=== PATIENT | female | born 1935 ===

== ENCOUNTER 2020-04-26 12:30 | Inpatient (IN) | payer MEDICARE, SELFPAY ==
[2020-04-26] VITALS (17 sets, daily range): BP systolic 101–144; BP diastolic 61–105; PULSE 91–156; RESP 18–25; TEMP 36–36.6; O2SAT 93–98; BMI 27.1
--- NOTE | ~2020-04-26 | XR_ITS ---
EXAMINATION: XR chest 1V portable INDICATION: Shortness of breath TECHNIQUE: Portable AP chest at 1342 hours COMPARISON: 11/02/2018 FINDINGS: There are airspace opacities of the lower lung zones. A small left pleural effusion is pres ent. There is no pneumothorax. The heart size is normal. Calcified atherosclerosis is noted. IMPRESSION: 1. Bibasilar airspace opacity, consistent with atelectasis versus pneumonia. 2. Small left pleural effusion. Reviewed, dictated and finalized at location A.
--- NOTE | 2020-04-26 12:41 | ECG_ITS ---
Measurements Intervals [place] Rate: 160 P: [place]: 0 QRS: 23 QRSD: 78 T: 87 QT: 285 QTc: 465 Interpretive Statements ATRIAL FIBRILLATION WITH RAPID VENTRICULAR RESPONSE VENTRICULAR COUPLET LOW QRS VOLTAGE IN LIMB LEADS CANNOT RULE OUT SEPTAL INFARCT, AGE INDETERMINATE BORDERLINE ST-T WAVE ABNORMALITY- INF/LAT LEADS BASELINE ARTIFACT- I, II, AVR, AVL, AVF ABNORMAL ECG Electronically Signed On 04-26-2020 13:33:52 CDT by Slick Romero D.O.
--- NOTE | 2020-04-26 12:42 | ED.GENADULT ---
HPI - General Adult General Chief complaint: Shortness of Breath/Dyspnea Stated complaint: a fib Time Seen by Provider: 04/26/20 12:33 Source: RN notes reviewed History of Present Illness HPI narrative: Patient presents emergency department from PCPs office for rapid heart rate. Patient states she has been feeling short of breath with mild midsternal chest pain for the past 2 days. States she had gone to her PCPs office found to be in A. fib and sent to the ER for further evaluation. Patient denies any history of atrial fibrillation. States he does have COPD and normally only wears 2 L at night but is been wearing it during the day for the past 2 days. She denies any fevers or chills abdominal pain nausea vomiting or any other symptoms Related Data Home Medications Medication Instructions Recorded Confirmed fluticasone propionate 50 1 spray NASAL DAILY 12/05/19 mcg/actuation nasal spray,suspension hydrochlorothiazide 12.5 mg tablet 12.5 mg PO DAILY 12/05/19 albuterol sulfate [ProAir HFA] 1 inh INHALATION QID 04/26/20 prednisone 04/26/20 Allergies Allergy/AdvReac Type Severity Reaction Status Date / Time duloxetine Allergy Unknown Nausea Verified 04/26/20 12:55 nitrofurantoin Allergy Unknown Nausea Verified 04/26/20 12:55 Review of Systems Review of Systems: Narrative: Gen.: Denies fevers or chills ENT: Denies congestion Respiratory: See HPI CV: See HPI GI: Denies abdominal pain nausea, emesis or diarrhea denies burning, urgency, frequency or hematuria Musculoskeletal: Denies back pain or muscle pain Neuro: Denies numbness, tingling, weakness or focal weakness Skin: Denies rash Except as documented, all other systems reviewed and negative PMF Past Medical History Medical History (Updated 04/26/20 @ 14:46 by Lalit Arnold DO) Chronic obstructive pulmonary disease, unspecified Surgical History Surgical History H/O cataract extraction H/O hemorrhoidectomy H/O tubal ligation Hx of removal of ovary Social History Social History Smoking status: Current every day smoker Alcohol intake: current Gender identity (if verbalized by the patient): Female Exam Narrative: Exam Narrative: APPEARANCE: No acute distress, nontoxic, resting in bed EYES: EOMI HEENT: Normocephalic, atraumatic, OMM RESPIRATORY: No respiratory distress Clear to auscultation bilaterally with no rhonchi wheezing or rales. CARDIOVASCULAR: Tachycardic and regular without murmurs rubs or gallops. ABDOMINAL: Soft, nontender, nondistended, no rebound or guarding MUSCULOSKELETAl: Moves all extremities. No clubbing, cyanosis 2+ edema the bilateral lower extremities. NEURO: Awake and alert. Following commands, speech normal, no focal deficits SKIN:: Warm, dry. No rashes lesions or abrasions PSYCHIATRIC: Normal affect/mood, Course Course Emergency Course: Discussed with ABBY Morgan for Dr. Gomez presentation work-up. Agrees to consult this time. Discussed current heart rate agrees with continued Cardizem and they will evaluate the patient on the floor. Recommends patient receive Lovenox x1 at this time Discussed Dr. Goldstein presentation work-up. Agrees with admission at this time. Request patient started on.9NS at 100 mL an hour Discussed with patient and family results of workup and diagnosis. Discussed need for admission. Patient and family understand and agree to current treatment plan Vital Signs Vital signs: Vital Signs Temperature 97.8 F 04/26/20 12:37 Pulse Rate 153 H 04/26/20 12:37 Respiratory Rate 25 H 04/26/20 12:37 Blood Pressure 144/105 H 04/26/20 12:37 Pulse Oximetry 97 04/26/20 12:37 Temperature 97.8 F 04/26/20 12:37 Pulse Rate 140 H 04/26/20 14:38 Respiratory Rate 18 04/26/20 14:38 Blood Pressure 133/94 H 04/26/20 14:38 Pulse Oximetry 97 04/26/20 14:38
[2020-04-26 12:56] LABS: Basophils Percent Auto 0.1 % (0.2-1.2); Hematocrit 35.2 % (37.0-47.0); Hemoglobin 12.3 g/dL (12.0-15.0); Immature Granulocyte Absolute 0.04 K/mm3 (0.00-0.031); Immature Granulocyte Percent A 0.5 % (0-0.5); Lymphocytes Absolute Auto 0.65 K/mm3 (0.9-3.2); Lymphocytes Percent Auto 8.1 % (18.3-44.2); Mean Corpuscular HGB Conc 34.9 g/dl (32-36); Mean Corpuscular Hemoglobin 34.7 pg (26-34); Mean Corpuscular Volume 99.4 fl (80-100); Mean Platelet Volume 8.7 fl (7.4-10.4); Monocytes Absolute Auto 0.3 K/mm3 (0.1-0.6); Monocytes Percent Auto 3.5 % (2.6-8.5); Neutrophils Absolute Auto 7.1 K/mm3 (1.3-6.7); Neutrophils Percent Auto 87.8 % (45.5-73.1); Platelet Count Result 277 k/mm3 (150-375); Red Blood Count 3.54 M/mm3 (4.2-5.4); Red Cell Distribution Width 12.5 % (11.5-14.5); White Blood Count 8.1 K/mm3 (4.5-10.0)
[2020-04-26 13:07] LABS: Blood Urea Nitrogen 22 mg/dL (7-17); Carbon Dioxide 28 mmol/L (22-30); Chloride 84 mmol/L (98-107); Estimated CRCL calculation 59 ml/min; Estimated Glomerular Filt Rate > 60; Glucose 148 mg/dL (65-105); Potassium 3.8 mmol/L (3.4-5.0); Prothrombin Time 13.3 Seconds (11.1-14.7); Sodium 123 mmol/L (137-145)
[2020-04-26 13:08] LABS: Partial Thromboplastin Time 25.8 SECONDS (22.3-36.8)
[2020-04-26 13:20] LABS: NT Pro B Type Natriuretic Pept 5540 PG/ML (5-100)
[2020-04-26] MEDS: ENOXAPARIN 80 MG/0.8 ML SYRINGE 73 MG SUB-Q (14:13)
--- NOTE | 2020-04-26 15:25 | ADMGEN ---
This patient, Wendy Castañeda, was admitted to IMU Room 205-01. Patient/family oriented to hospital policies and general routines including ID bracelet, bed and alarms, visiting hours, pain management, procedures, bathroom and other care routines, personal items, smoking policy, room service/diet, and visiting hours. Valuables list has been completed. Information on how to activate the Rapid Response Team has been discussed. Patient/Family are encouraged to report perceived risks to care and to ask questions if they do not understand what they are told or what they should do.
--- NOTE | 2020-04-26 15:55 | PM.CNCAR ---
Assessment and Plan Assessment and plan (1) Atrial fibrillation with rapid ventricular response: Code(s): I48.91 - Unspecified atrial fibrillation Status: Acute Assessment and Plan: -New diagnosis atrial fibrillation with rapid ventricular response. Onset likely 5-7 days ago given symptom complex. Continue enoxaparin 1 milligram/kilogram subcutaneous q.12 hours initiated in the emergency department for systemic anticoagulation and embolic stroke risk reduction. Patient is not in clinical decompensated heart failure, elevated BNP secondary to age and atrial fibrillation with RVR. -Continue diltiazem infusion 10 milligrams/hour. -Add Metoprolol tartrate 25 mg p.o. q.6 hours as heart rate and BP tolerate. Will attempt to wean diltiazem infusion based upon heart rate control. Heart rate control strategy will be focus at this time. We discussed at length the pathophysiology of atrial fibrillation as well as management options including medications, electrical cardioversion to restore SR particularly if HR refractory and/or she tolerates medications poorly. If cardioversion is pursued, transesophageal echocardiographic guidance would be required given duration of sxs consistent with atrial fibrillation with RVR. -CHADS2-Vasc score 4 (HTN, age, including female sex (3 otherwise)): As pt does not have clear contraindications to anticoagulation her embolic stroke risk appears to outweigh bleeding risk. -Troponins are being trended. Initial troponin negative. No evidence to support ACS. -2D echocardiogram to assess LV size /function, chamber size, valve pathology, and pulmonary pressures. Will be reviewed when available. -Check TSH and Mg level. Monitor and replete electrolytes as warranted to keep potassium and magnesium around 4 and 2, respectively. Further recommendations to follow based on patient's clinical response to therapy. Patient verbalized understanding of the above recommendations and agreed to comply with the plan of care. All questions answered to her satisfaction. (2) Panlobular emphysema: Code(s): J43.1 - Panlobular emphysema Status: Acute Assessment and Plan: Per primary service. Continue oxygen supplementation, bronchodilator therapy as appropriate. (3) Essential (primary) hypertension: Code(s): I10 - Essential (primary) hypertension Status: Acute Assessment and Plan: BP fair at this time. Continue to monitor closely with above medication adjustment. (4) Mixed hyperlipidemia: Code(s): E78.2 - Mixed hyperlipidemia Status: Acute Assessment and Plan: May continue home Simvastatin. (5) Acute hyponatremia: Code(s): E87.1 - Hypo-osmolality and hyponatremia Status: Acute Assessment and Plan: Workup per primary service. Possibly secondary to hydrochlorothiazide. History of Present Illness History of Present Illness Consult date/time: Date of service: 04/26/20 15:55 This is a cardiology consultation at the request of Dr. Goldstein of the [facility] service for our opinion regarding management of atrial fibrillation with rapid ventricular response. Requesting physician: Florian Goldstein MD Consult reason: atrial fibrillation Reason For Visit: A fib with RVR Narrative: Patient is a very pleasant 85-year-old female with a past medical history significant for chronic respiratory failure on home oxygen due to COPD, hypertension, dyslipidemia who presented to the emergency department at the request of her primary care physician Dr. Carr for new diagnosis atrial fibrillation with rapid ventricular response. Patient states she had been in her usual state of health when approximately 5-7 days ago she began in noted unusual persistent fatigue, exertional dyspnea, mild lightheadedness. She denies chest pain, near-syncope or syncope. She denies palpitations. However, on a home pulse oximeter device she had noted
[2020-04-26 16:22] LABS: Troponin I 0.017 ng/mL (0.000-0.034)
[2020-04-26 16:34] LABS: Magnesium 1.7 mg/dL (1.6-2.3)
[2020-04-26] MEDS: METOPROLOL TARTRATE 25 MG TABLET PO ×2 (17:40→21:18)
--- NOTE | 2020-04-26 17:55 | PM.IMHP ---
H&P: HPI History of Present Illness Chief complaint: A fib with RVR Narrative: Wendy Castañeda is a 85 year old female who has a history of COPD. She has chronic hypoxia and is on oxygen at 2 L per nasal cannula. Sometimes with activity she bumps it up to 3 L per nasal cannula. The patient stated for last couple weeks she has been very short of breath more so than normal. Patient stated that she also had some midsternal chest pressure. She followed up with her primary care doctor today due to the symptoms. She has had no history of Of any irregular heart rate. The patient stated that she has had chest pain and shortness of breath for the last 2 days. The patient went to her primary care today and found that she was in atrial fibrillation. She was then sent to the emergency room. No fever no chills no cough no nausea vomiting. Cardiology has been consulted has already seen the patient. She did get a dose of subcu Lovenox and has been on a Cardizem drip. The plan is to wean her off of the Cardizem drip and start her on oral Lopressor. Remains in AFib with RVR heart rate in the 120s. Radiologist as bibasilar airspace opacities consistent with atelectasis versus pneumonia. Small left pleural effusion. Date of service 04/26/2020 Review of Systems Review of Systems: All systems reviewed & are unremarkable except as noted in HPI and below Constitutional: Constitutional: Reports as per HPI and Reports no additional constitutional complaints Eyes: Eyes: Reports as per HPI and Reports no additional eye complaints ENT: Reports system reviewed and no additional complaints, except as documented and Reports Normal hearing present Cardiovascular: Cardiovascular: Reports no additional cardiovascular complaints Respiratory: Respiratory: Reports no additional respiratory complaints and Reports no additional respiratory complaints Gastrointestinal: Gastrointestinal: Reports as per HPI and Reports no additional gastrointestinal complaints Musculoskeletal: Musculoskeletal: Reports no additional musculoskeletal complaints Integumentary/Breasts: Skin/Breast: Reports system reviewed and no additional complaints, except as docu and Reports as per HPI Neurologic: Reports system reviewed and no additional complaints, except as documented, Reports as per HPI and Reports Normal hearing present Psychiatric: Psychiatric: Reports no additional psychiatric complaints and Reports as per HPI Endocrine: Endocrine: Reports no additional endocrine complaints Hematologic/Lymphatic: Hematologic/Lymphatic: Reports no additional hematologic/lymphatic complaints Allergic/Immunologic: Allergic/Immunologic: Reports no additional allergic/immunologic complaints PMFSH Past Medical History Medical History (Updated 04/26/20 @ 18:03 by Abida Laws NP) Chronic obstructive pulmonary disease, unspecified Essential (primary) hypertension Hypothyroidism Mixed hyperlipidemia Surgical History Surgical History H/O cataract extraction H/O hemorrhoidectomy H/O tubal ligation Hx of removal of ovary Family History Family History Father Hypertension Mother Hypertension Social History Social History (Updated 04/26/20 @ 18:06 by Abida Laws NP) Social History: The patient is . She has a daughter and a son. Oralia Deras is her durable power traffic law attorney for healthcare. The patient will allow full code at this time but does not want to live on a ventilator. She will allow it for limited amount of time but does not want to live like a vegetable. 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 She is to smoke until 1989. Had she has glass a wine occasionally. Smoking packs per day: 1 Smoking cigarettes per day: 20.0 Years smoked: 30 Smoking pack-years: 30.00 Smoking status: Former smoker T
[2020-04-26 19:39] LABS: Troponin I 0.018 ng/mL (0.000-0.034)
[2020-04-26] MEDS: LEVALBUTEROL HFA (*SP) 15 GM INHALER 2 PUFF INHALATION (20:49)
[2020-04-26] MEDS: AMLODIPINE BESYLATE 2.5 MG TABLET PO (21:18)
[2020-04-26] MEDS: ALPRAZOLAM 0.5 MG TABLET PO (21:18)
[2020-04-27] VITALS (22 sets, daily range): BP systolic 110–122; BP diastolic 70–94; PULSE 58–144; RESP 18–30; TEMP 35.8–36.4; O2SAT 93–100
--- NOTE | 2020-04-27 | ECHO_ITS ---
Patient Info Name: Wendy Castañeda Age: 85 years : 1935 Gender: Female Ht: 64 in Wt: 158 lbs BSA: 1.82 m2 HR: 87 bpm BP: 110 / 75 mmHg Technical Quality: Fair Exam Date: 04/27/2020 9:52 AM Exam Location: [facility] Patient Status: Outpatient Admit Date: 04/26/2020 Staff Ordering Physician: Abida Laws NP Revenue Liaison: Selina Kong RDCS Attending Provider: Florian Goldstein MD Referring Physician: Veto BELLA; Exam Type: CA echo doppler color flow Study Info Indications afib - Complete two-dimensional, color flow and Doppler transthoracic echocardiogram is performed. Summary 1. Left ventricular chamber dimension is normal. 2. Left ventricular systolic function is normal, estimated at 55-60%. 3. Left atrial chamber dimension is mildly enlarged. 4. Right ventricular chamber dimension is mildly enlarged. 5. Right ventricular systolic function is normal. 6. Right atrial chamber dimension is severely enlarged. 7. There is moderate tricuspid valve regurgitation. 8. Mild pulmonary hypertension, estimated pulmonary arterial systolic pressure is 34 mmHg. 9. Dilated inferior vena cava with >50% collapse upon inspiration consistent with elevated right atrial pressure, 10 mmHg. Left Ventricle The left ventricular diastolic function is indeterminate. Left ventricular chamber dimension is normal. Left ventricular systolic function is normal, estimated at 55-60%. There is no increased left ventricular wall thickness. Left ventricular septal wall motion is grossly normal, however endocardial definition is limited. Right Ventricle Right ventricular chamber dimension is mildly enlarged. Right ventricular systolic function is normal. Left Atria Left atrial chamber dimension is mildly enlarged. Right Atria Right atrial chamber dimension is severely enlarged. Aortic Valve The aortic valve is trileaflet. There is no aortic valve sclerosis. There is no aortic valve stenosis. There is no aortic valve regurgitation. Pulmonic Valve The pulmonic valve is not well visualized. There is no pulmonic valve stenosis. There is no pulmonic regurgitation. Mitral Valve The mitral valve has normal leaflets. There is no mitral valve stenosis. There is no mitral valve regurgitation. Tricuspid Valve The tricuspid valve leaflets are normal. There is no significant tricuspid valve stenosis. There is moderate tricuspid valve regurgitation. Mild pulmonary hypertension, estimated pulmonary arterial systolic pressure is 34 mmHg. Pericardium/Pleural There is no pericardial effusion. Inferior Vena Cava Dilated inferior vena cava with >50% collapse upon inspiration consistent with elevated right atrial pressure, 10 mmHg. Aorta The aortic root size at the sinus of Valsalva is normal. The prox ascending aorta size is normal. Left Ventricular Outflow Tract Name Value Normal LVOT 2D LVOT Diameter 2.0 cm LVOT Doppler LVOT Peak Gradient 2 mmHg LVOT Mean Gradient 1 mmHg LVOT VTI 13 cm
[2020-04-27] MEDS: ENOXAPARIN 80 MG/0.8 ML SYRINGE 75 MG SUB-Q ×2 (01:23→14:09)
[2020-04-27 06:00] LABS: Basophils Percent Auto 0.2 % (0.2-1.2); Eosinophils Percent Auto 0.5 % (0-4.4); Hematocrit 33.3 % (37.0-47.0); Hemoglobin 11.9 g/dL (12.0-15.0); Immature Granulocyte Absolute 0.05 K/mm3 (0.00-0.031); Immature Granulocyte Percent A 0.6 % (0-0.5); Lymphocytes Absolute Auto 2.33 K/mm3 (0.9-3.2); Lymphocytes Percent Auto 26.9 % (18.3-44.2); Mean Corpuscular HGB Conc 35.7 g/dl (32-36); Mean Corpuscular Hemoglobin 35.2 pg (26-34); Mean Corpuscular Volume 98.5 fl (80-100); Mean Platelet Volume 8.6 fl (7.4-10.4); Monocytes Absolute Auto 1.2 K/mm3 (0.1-0.6); Monocytes Percent Auto 13.4 % (2.6-8.5); Neutrophils Absolute Auto 5.1 K/mm3 (1.3-6.7); Neutrophils Percent Auto 58.4 % (45.5-73.1); Platelet Count Result 254 k/mm3 (150-375); Red Blood Count 3.38 M/mm3 (4.2-5.4); Red Cell Distribution Width 12.5 % (11.5-14.5); White Blood Count 8.7 K/mm3 (4.5-10.0)
[2020-04-27 06:17] LABS: Blood Urea Nitrogen 21 mg/dL (7-17); Calcium 8.9 mg/dL (8.4-10.2); Carbon Dioxide 31 mmol/L (22-30); Chloride 83 mmol/L (98-107); Estimated CRCL calculation 51 ml/min; Estimated Glomerular Filt Rate > 60; Glucose 96 mg/dL (65-105); Potassium 3.3 mmol/L (3.4-5.0); Sodium 122 mmol/L (137-145)
[2020-04-27] MEDS: LEVOTHYROXINE SODIUM 88 MCG TABLET PO (06:27)
[2020-04-27] MEDS: hydroCHLOROthiazide 12.5 MG CAPSULE PO (08:41)
[2020-04-27] MEDS: SIMVASTATIN 20 MG TABLET PO (08:42)
[2020-04-27] MEDS: METOPROLOL TARTRATE 25 MG TABLET PO (08:42)
[2020-04-27 10:27] LABS: Magnesium 1.7 mg/dL (1.6-2.3)
--- NOTE | 2020-04-27 10:51 | PM.PNCARD ---
Progress Note: A&P Additional Plan AF with RVR, Hx of COPD likely primary cause of SOB, plan d/c amlodipine and increase metoprolol to 50 mg QID. Cont HCTZ, cont lovenox LMWH until oral anticoagulation started. Subjective Date/time seen: 04/27/20 10:51 Interval history: No acute event overnight She continue to have fatigue and feels uncomfortable Review of Systems Review of Systems: All systems reviewed & are unremarkable except as noted in HPI and below Exam Const: General: comfortable and no acute distress Eyes: General: appearance normal, both eyes and all related structures Neck: Neck: no JVD Carotids: no bruits Resp: Effort & Inspection: normal respiratory effort Auscultation: clear to auscultation bilaterally Cardio: Heart sounds: no murmurs Other: irregular rate and rhyhm Objective Data Vital Signs Vital Signs: Vital Signs - 24 hr 04/26/20 12:37 04/26/20 12:40 04/26/20 13:03 Temperature 36.6 C Pulse Rate 153 H 153 H 154 H Respiratory Rate 25 H 25 H Blood Pressure 144/105 H 118/91 H Pulse Oximetry 97 96 04/26/20 14:06 04/26/20 14:38 04/26/20 14:40 Temperature 36.6 C Pulse Rate 156 H 140 H 113 H Respiratory Rate 18 18 22 H Blood Pressure 119/78 133/94 H 120/91 H Pulse Oximetry 96 97 97 04/26/20 16:00 04/26/20 17:00 04/26/20 17:40 Temperature 36.0 C L Pulse Rate 113 H 91 139 H Respiratory Rate 18 24 H Blood Pressure 127/77 Pulse Oximetry 97 94 04/26/20 18:00 04/26/20 19:55 04/26/20 20:00 Temperature 36.2 C L Pulse Rate 131 H 101 H 120 H Respiratory Rate 22 H Blood Pressure 101/61 Pulse Oximetry 96 96 04/26/20 20:53 04/26/20 20:54 04/26/20 21:18 Temperature Pulse Rate 130 H 130 H 128 H Respiratory Rate 18 18 Blood Pressure Pulse Oximetry 93 04/26/20 22:00 04/26/20 23:27 04/27/20 00:00 Temperature 36.1 C L Pulse Rate 107 H 111 H 126 H Respiratory Rate 20 Blood Pressure 101/75 Pulse Oximetry 98 06/20/20 02:00 04/27/20 04:00 04/27/20 06:00 Temperature 36.2 C L Pulse Rate 113 H 126 H 114 H Respiratory Rate 24 H Blood Pressure 110/75 Pulse Oximetry 96 04/27/20 08:00 04/27/20 08:27 04/27/20 08:42 Temperature 36.1 C L Pulse Rate 132 H 134 H 144 H Respiratory Rate 20 18 Blood Pressure 121/94 H Pulse Oximetry 100 95 04/27/20 10:00 Temperature Pulse Rate 118 H Respiratory Rate Blood Pressure Pulse Oximetry Intake/Output Intake/Output: Intake & Output 04/24/20 04/25/20 04/26/20 04/27/20 23:59 23:59 23:59 23:59 Intake Total 100 665 Output Total 150 Balance -50 665 Meds/Results Medications: Active Medications Generic Name Dose Route Start Last Admin Trade Name Freq PRN Reason Stop Dose Admin Alprazolam 0.5 mg 04/26/20 21:00 04/26/20 21:18 Xanax PO 0.5 mg HS CHARLEE Administration Amlodipine Besylate 2.5 mg 04/26/20 21:00 04/26/20 21:18 Norvasc PO 2.5 mg HS CHARLEE Administration Budesonide/Formoterol Fumarate 2 puff 04/26/20 20:00 04/27/20 08:22 Symbicort 160-4.5 Mcg (*Sp) Inhaler INHALATION 2 puff Q12HRT CHARLEE Administration Enoxaparin Sodium 75 mg 04/27/20 02:00 04/27/20 01:23 Lovenox SUB-Q 75 mg Q12H CHARLEE Administration Hydrochlorothiazide 12.5 mg 04/27/20 09:00 04/27/20 08:41 Hydrochlorothiazide PO 12.5 mg DAILY CHARLEE Administration Diltiazem HCl 100 mg in 100 mls @ 10 mls/hr 04/26/20 21:50 04/27/20 08:41 Cardizem 100 Mg/D5w 100 Ml IV CONT 10 mg/hr .Q10H CHARLEE 10 mls/hr Administration 10 MG/HR Levalbuterol HCl 2 puff 04/26/20 18:17 04/26/20 20:49 Xopenex Hfa INHALATION 2 puff Q6HRT PRN Administration Shortness Of Breath Levothyroxine Sodium 88 mcg 04/27/20 06:30 04/27/20 06:27 Synthroid PO 88 mcg DAILY@0630 CHARLEE Administration Magnesium Oxide 400 mg 04/27/20 10:30 Mag-Ox PO QAM CHARLEE Metoprolol Tartrate 25 mg 04/26/20 21:00 04/27/20 08:42 Lopressor P
[2020-04-27] MEDS: POTASSIUM CHLORIDE 20 MEQ TABLET 40 MEQ PO (11:54)
[2020-04-27] MEDS: MAGNESIUM OXIDE 400 MG TABLET PO (11:55)
[2020-04-27] MEDS: METOPROLOL TARTRATE 50 MG TAB PO ×3 (14:10→20:43)
--- NOTE | 2020-04-27 16:48 | PM.IMPN ---
Progress Note: A&P Assessment and Plan (1) Atrial fibrillation with rapid ventricular response: Code(s): I48.91 - Unspecified atrial fibrillation Status: Acute Assessment and Plan: The patient is currently on a Cardizem drip. She is being transitioned to oral metoprolol. She will be on metoprolol a q.i.d.. On metoprolol extended release so that is on hold. Patient's chads 2 Vasc score is 4 she was given a dose of Lovenox. An echo has been ordered. 04/27/20 16:48 Patient 85-year-old female with history of COPD patient presented emergency department with a complaint tired fatigue palpitation over 1 week emergency department patient was found to have atrial fibrillation with RVR new onset patient was started on diltiazem drip rate is now trending down off the drip, patient seen by road maker stop the amlodipine increase metoprolol, will continue Lovenox, patient will have a cardiac echo, the if patient does not return to sinus rhythm patient may have DC cardioversion on Wednesday, patient denies any chest pain shortness of breath palpitation currently (2) Chronic obstructive pulmonary disease, unspecified: Code(s): J44.9 - Chronic obstructive pulmonary disease, unspecified Status: Chronic Assessment and Plan: Continue with patient's inhalers. She may need to p.r.n. dosing as well. Patient is chronically on oxygen at 2 L per nasal cannula. Continue with Symbicort and Spiriva (3) Hypothyroidism: Code(s): E03.9 - Hypothyroidism, unspecified Status: Chronic Assessment and Plan: thyroid level within normal limits and continue levothyroxine. (4) Mixed hyperlipidemia: Code(s): E78.2 - Mixed hyperlipidemia Status: Acute Assessment and Plan: Continue with simvastatin (5) Essential (primary) hypertension: Code(s): I10 - Essential (primary) hypertension Status: Acute Assessment and Plan: Patient was on metoprolol extended release and is now on metoprolol q.i.d.. Continue with hydrochlorothiazide. And amlodipine. (6) Generalized anxiety disorder: Code(s): F41.1 - Generalized anxiety disorder Status: Acute Assessment and Plan: Continue with alprazolam. Subjective Date/time seen: 04/27/20 16:48 Patient 85-year-old female with history of COPD patient presented emergency department with a complaint tired fatigue palpitation over 1 week emergency department patient was found to have atrial fibrillation with RVR new onset patient was started on diltiazem drip rate is now trending down off the drip, patient seen by road maker stop the amlodipine increase metoprolol, will continue Lovenox, patient will have a cardiac echo, the if patient does not return to sinus rhythm patient may have DC cardioversion on Wednesday, patient denies any chest pain shortness of breath palpitation currently Review of Systems Review of Systems: All systems reviewed & are unremarkable except as noted in HPI and below Exam Const: General: comfortable and no acute distress HENMT: General nose exam: Normal nares present Eyes: General: appearance normal, both eyes and all related structures Sclera: sclerae normal Neck: Neck: supple Resp: Effort & Inspection: normal respiratory effort Auscultation: clear to auscultation bilaterally Cardio: Other: Irregularly irregular GI: Auscultation: normal bowel sounds Skin: General skin exam: normal color Neuro: Speech: normal speech Sensory Exam: normal sensation Extrem: General: normal to inspection Psych: Affect: Anxious affect present Objective Data Vital Signs Vital Signs: Vital Signs - 24 hr 04/26/20 17:00 04/26/20 17:40 04/26/20 18:00 Temperature 96.8 F L Pulse Rate 91 139 H 131 H Respiratory Rate 24 H Blood Pressure 127/77 Pulse Oximetry 94 04/26/20 19:55 04/26/20 20:00 04/26/20 20:53 Temperature 97.1 F L Pulse Rate 101 H 120 H 130 H Respiratory Rate 22 H 18 Blood P
[2020-04-27] MEDS: ALPRAZOLAM 0.5 MG TABLET PO ×2 (17:14→20:43)
[2020-04-27] MEDS: LEVALBUTEROL NEB 1.25 MG/3 ML 0.63 MG INHALATION ×2 (18:15→20:29)
[2020-04-28] VITALS (26 sets, daily range): BP systolic 102–138; BP diastolic 64–89; PULSE 51–123; RESP 16–30; TEMP 35.7–36.7; O2SAT 93–100
[2020-04-28] MEDS: ENOXAPARIN 80 MG/0.8 ML SYRINGE 75 MG SUB-Q (01:45)
[2020-04-28] MEDS: LEVALBUTEROL NEB 1.25 MG/3 ML 0.63 MG INHALATION ×4 (01:45→20:59)
--- NOTE | 2020-04-28 02:29 | PC.NURSE ---
04/27/20-2249: Pt noted to have increased confusion, pulling off nuclear monitoring technician and continuous pulse ox and attempting to climb out of bed. Myself and CCT attempted to reorient patient. Pt repeatedly asking for pt's daughter, Oralia. [id number] tank chargerBarbara at nurses station and called Pt's daughter, Oralia to update her with Pt's condition and notify her of Pt's increased confusion. Pt's daughter transferred into the Pt's room to speak with the Pt to attempt to calm her down. Oralia spoke with tank charger and demanded to come up to the hospital to sit with her mom. forwarder operator explained to patient that due to the current COVID restrictions that is not possible at this time. Oralia continued to demand to come up to the hospital and requested to speak to the housekeeping staff. cloth napping supervisor, Audrey updated with situation and call transferred to cloth napping supervisor. Patient calmer at this time after speaking to her daughter and is becoming more oriented. CCT remains in patient's room to monitor patient as an extra safety precaution. [id number]- Dr. Gibson notified of Pt's increased confusion and notified of Pt's sodium level of 122. No orders received at this time. Will continue to monitor patient closely.
[2020-04-28 05:10] LABS: Hematocrit 32.4 % (37.0-47.0); Hemoglobin 11.7 g/dL (12.0-15.0); Mean Corpuscular HGB Conc 36.1 g/dl (32-36); Mean Corpuscular Hemoglobin 34.4 pg (26-34); Mean Corpuscular Volume 95.3 fl (80-100); Mean Platelet Volume 8.1 fl (7.4-10.4); Platelet Count Result 219 k/mm3 (150-375); Red Cell Distribution Width 11.8 % (11.5-14.5); White Blood Count 8.3 K/mm3 (4.5-10.0)
[2020-04-28 05:34] LABS: Blood Urea Nitrogen 21 mg/dL (7-17); Calcium 8.3 mg/dL (8.4-10.2); Carbon Dioxide 31 mmol/L (22-30); Chloride 77 mmol/L (98-107); Estimated CRCL calculation 59 ml/min; Estimated Glomerular Filt Rate > 60; Glucose 101 mg/dL (65-105); Magnesium 1.7 mg/dL (1.6-2.3); Potassium 3.1 mmol/L (3.4-5.0); Sodium 116 mmol/L (137-145)
--- NOTE | 2020-04-28 06:04 | PM.EVENT ---
Event Note Event Note Event Note: Called by nursing with serum sodium of 116 mmol/L that resulted this morning. The patient has had significant hyponatremia, has been on HCTZ and receiving Diltiazem IV that contains D5W. We will discontinue HCTZ, fluid restrict the patient. I have consulted Nephrology, Dr. White who has instructed that we started hypertonic saline 3% at 70 cc/hr for 4 hours (total of 280 ml of 3% NaCl). We will check BMP q 4hrs.
--- NOTE | 2020-04-28 06:10 | ECG_ITS ---
Measurements Intervals [place] Rate: 51 P: 61 TX: 219 QRS: -5 QRSD: 74 T: 7 QT: 447 QTc: 415 Interpretive Statements SINUS BRADYCARDIA WITH FIRST DEGREE AV BLOCK LOW QRS VOLTAGE IN LIMB LEADS BORDERLINE R WAVE PROGRESSION, ANTERIOR LEADS BORDERLINE ST-T WAVE ABNORMALITY- ANT/INF LEADS BASELINE ARTIFACT- I, II, III, AVR, AVL, AVF, V1-V6 ABNORMAL ECG Electronically Signed On 04-28-2020 8:14:03 CDT by Slick Romero D.O.
[2020-04-28] MEDS: LEVOTHYROXINE SODIUM 88 MCG TABLET PO (06:16)
[2020-04-28] MEDS: SODIUM CHLORIDE 3% 280 ML 70 ML IV CONT (06:51)
--- NOTE | 2020-04-28 07:00 | PC.NURSE ---
Spoke with Pt's daughter, Oralia and updated her with pt's condition and AM lab results, careplan, etc.
[2020-04-28] MEDS: SIMVASTATIN 20 MG TABLET PO (08:57)
[2020-04-28] MEDS: MAGNESIUM OXIDE 400 MG TABLET PO (08:57)
[2020-04-28] MEDS: METOPROLOL TARTRATE 50 MG TAB PO (08:57)
--- NOTE | 2020-04-28 09:50 | PM.CNNEP ---
Assessment and Plan Assessment and plan (1) Acute hyponatremia: Code(s): E87.1 - Hypo-osmolality and hyponatremia Status: Acute Assessment and Plan: The patient has low sodium. Sodium was 136 in 2004 and 129 in 2013. Etiology of the sodium could be from several issues. She is on hydrochlorothiazide. We will stop this and we can use something different for her blood pressure. She is getting hypotonic fluids IV as an obligate because of her Cardizem drip. She has COPD which probably is an underlying cause as well. Her chest x-ray does show by basilar airspace opacities. We can check a serum protein electrophoresis and cortisol level to round out the evaluation. To manage this we will stop the hydrochlorothiazide. We can use something different for her blood pressure. We will check serum and urine osmolality as well as a cortisol level and SPEP. Will fluid restrict the patient. We will finish this round of hypertonic saline. We will monitor the sodium improvement and manage day-to-day to improve the sodium but not too quickly. (2) Atrial fibrillation with rapid ventricular response: Code(s): I48.91 - Unspecified atrial fibrillation Status: Acute Assessment and Plan: The patient was on a Cardizem drip. She is in sinus rhythm now. The drip was discontinued. (3) Chronic obstructive pulmonary disease, unspecified: Code(s): J44.9 - Chronic obstructive pulmonary disease, unspecified Status: Chronic Assessment and Plan: She is getting supportive care (4) Hypothyroidism: Code(s): E03.9 - Hypothyroidism, unspecified Status: Chronic Assessment and Plan: She is on thyroid supplements and TSH is normal (5) Essential (primary) hypertension: Code(s): I10 - Essential (primary) hypertension Status: Acute Assessment and Plan: History of Present Illness Reason for Consult Consult date: 04/28/20 Chief Complaint Chief complaint: A fib with RVR History of Present Illness Narrative: Wendy is a very pleasant 85-year-old lady who has multiple medical problems including COPD, chronic mild swelling, hypothyroidism, hyperlipidemia. The patient was well until she went to Dr. Carr's office and he felt that her heart rate was high. She noted that she was having off and on shortness of breath and some chest pressure over the last couple of weeks. He felt her pulse and she was in atrial fibrillation so she was sent to the emergency room. The heart rate was rapid. Received Cardizem and Lovenox. She was admitted to the hospital. Just this morning she converted to sinus rhythm and the Cardizem drip was stopped. Cardiology evaluation continues. She had a sodium level of 123 on admission. During the hospital stay her sodium level dropped to 122 and then early this morning to 116 so renal consultation was requested. Dr. Gibson saw the patient for that low sodium and started on 3% saline 70cc an hour for 4 hours. A Sodium level is pending for after this drip. Patient says she has never been told that she had low sodium before. She does have COPD. He has no history of cancer and does not do screening anymore because of her age. She does not have any brain issues or history of stroke. She does take hydrochlorothiazide at home. No narcotics, no nonsteroidal anti-inflammatory agents, and no antidepressants. Have hypothyroidism and takes supplement. Her TSH this admission was normal. No history of adrenal disease. The patient seems a little bit confused but is very pleasant and talkative. No tremor or seizures. Review of Systems Constitutional: Constitutional: Reports no additional constitutional complaints Eyes: Eyes: Reports no additional eye complaints ENT: Reports system reviewed and no additional complaints, except as documented Cardiovascular: Cardiovascular: Reports no additional cardiovascular complaints Respiratory: Respiratory: Rep
--- NOTE | 2020-04-28 10:09 | PM.PNCARD ---
Progress Note: A&P Additional Plan AF with RVR, currently in sinus rhythm, [id number] score 4, Hx of COPD, Moderate TR and mild Pulm HTN plan d/c amlodipine and change metoprolol to 75 mg BID. Cont HCTZ, start oral anticoagulation, f/u in clinic Subjective Date/time seen: 04/28/20 10:09 Interval history: No acute events Feels better today Converted to sinus in Tele at 6 AM Review of Systems Review of Systems: All systems reviewed & are unremarkable except as noted in HPI and below Exam Const: General: comfortable and no acute distress Neck: Neck: supple and no JVD Cardio: Rate: regular rate Rhythm: regular rhythm Heart sounds: no murmurs Neuro: Speech: normal speech Motor exam (neuro): Normal motor muscle tone present throughout Extrem: Right lower extremity: no edema Left lower extremity: no edema Objective Data Vital Signs Vital Signs: Vital Signs - 24 hr 04/27/20 12:00 04/27/20 14:10 04/27/20 14:27 Temperature 36.4 C L Pulse Rate 128 H 113 H 114 H Respiratory Rate 22 H Blood Pressure 118/75 Pulse Oximetry 96 04/27/20 16:00 04/27/20 17:14 04/27/20 18:15 Temperature 35.8 C L Pulse Rate 105 H 82 58 L Respiratory Rate 24 H 20 Blood Pressure 112/79 Pulse Oximetry 99 04/27/20 18:20 04/27/20 18:27 04/27/20 20:00 Temperature 36.1 C L Pulse Rate 111 H 109 H 117 H Respiratory Rate 20 20 Blood Pressure 122/70 Pulse Oximetry 93 04/27/20 20:30 04/27/20 20:31 04/27/20 20:43 Temperature Pulse Rate 115 H 110 H Respiratory Rate 20 20 Blood Pressure Pulse Oximetry 94 04/27/20 22:00 04/27/20 23:30 04/28/20 00:00 Temperature 36.1 C L Pulse Rate 118 H 118 H 121 H Respiratory Rate 30 H 30 H Blood Pressure 110/89 Pulse Oximetry 96 96 04/28/20 01:50 04/28/20 01:59 04/28/20 02:00 Temperature Pulse Rate 109 H 114 H 113 H Respiratory Rate 20 20 Blood Pressure Pulse Oximetry 04/28/20 04:00 04/28/20 06:00 04/28/20 06:03 Temperature 36.3 C L Pulse Rate 123 H 113 H 67 Respiratory Rate 22 H Blood Pressure 102/73 Pulse Oximetry 96 04/28/20 08:00 04/28/20 08:25 04/28/20 08:26 Temperature 35.7 C L Pulse Rate 64 51 L Respiratory Rate 20 24 H Blood Pressure 127/89 Pulse Oximetry 100 97 04/28/20 08:35 04/28/20 08:57 Temperature Pulse Rate 51 L 57 L Respiratory Rate 24 H Blood Pressure Pulse Oximetry Intake/Output Intake/Output: Intake & Output 04/25/20 04/26/20 04/27/20 04/28/20 23:59 23:59 23:59 23:59 Intake Total 100 2595 624 Output Total 150 300 Balance -50 4005 624 Meds/Results Medications: Active Medications Generic Name Dose Route Start Last Admin Trade Name Freq PRN Reason Stop Dose Admin Alprazolam 0.5 mg 04/26/20 21:00 04/27/20 20:43 Xanax PO 0.5 mg HS CHARLEE Administration Budesonide/Formoterol Fumarate 2 puff 04/26/20 20:00 04/28/20 08:23 Symbicort 160-4.5 Mcg (*Sp) Inhaler INHALATION 2 puff Q12HRT CHARLEE Administration Enoxaparin Sodium 75 mg 04/27/20 02:00 04/28/20 01:45 Lovenox SUB-Q 75 mg Q12H CHARLEE Administration Sodium Chloride 280 mls @ 70 mls/hr 04/28/20 06:10 04/28/20 06:51 Sodium Chloride 3% IV CONT 04/28/20 10:09 70 mls/hr .Q4H CHARLEE Administration Levalbuterol HCl 0.63 mg 04/27/20 20:00 04/28/20 08:23 Xopenex 1.25 Mg/3 Ml INHALATION 0.63 mg Q6HRT CHARLEE Administration Levothyroxine Sodium 88 mcg 04/27/20 06:30 04/28/20 06:16 Synthroid PO 88 mcg DAILY@0630 CHARLEE Administration Magnesium Oxide 400 mg 04/27/20 10:30 04/28/20 08:57 Mag-Ox PO 400 mg QAM CHARLEE Administration Methylprednisolone Sodium Succinate 60 mg 06/21/20 10:05 Solu-Medrol IV PUSH DAILY CHARLEE Metoprolol Tartrate 50 mg 04/27/20 13:00 04/28/20 08:57 Lopressor PO 50 mg QID CHARLEE Administration Simvastatin 20 mg 04/27/20 09:00 04/28/20 08:57 Zocor PO 20 mg DAILY CHARLEE Administration Tiotr
[2020-04-28 10:35] LABS: Blood Urea Nitrogen 20 mg/dL (7-17); Calcium 8.2 mg/dL (8.4-10.2); Carbon Dioxide 33 mmol/L (22-30); Chloride 80 mmol/L (98-107); Estimated CRCL calculation 51 ml/min; Estimated Glomerular Filt Rate > 60; Glucose 107 mg/dL (65-105); Potassium 3.1 mmol/L (3.4-5.0); Sodium 118 mmol/L (137-145)
[2020-04-28] MEDS: methylPREDNISolone SOD SUCC 125 MG VIAL 60 MG IV PUSH (11:42)
[2020-04-28] MEDS: POTASSIUM CHLORIDE 20 MEQ TABLET 40 MEQ PO (11:43)
[2020-04-28 14:24] LABS: Blood Urea Nitrogen 20 mg/dL (7-17); Calcium 8.2 mg/dL (8.4-10.2); Carbon Dioxide 30 mmol/L (22-30); Chloride 80 mmol/L (98-107); Estimated CRCL calculation 51 ml/min; Estimated Glomerular Filt Rate > 60; Glucose 116 mg/dL (65-105); Potassium 3.4 mmol/L (3.4-5.0); Sodium 118 mmol/L (137-145)
--- NOTE | 2020-04-28 17:10 | PM.IMPN ---
Progress Note: A&P Assessment and Plan (1) Atrial fibrillation with rapid ventricular response: Code(s): I48.91 - Unspecified atrial fibrillation Status: Acute Assessment and Plan: The patient is currently on a Cardizem drip. She is being transitioned to oral metoprolol. She will be on metoprolol a q.i.d.. On metoprolol extended release so that is on hold. Patient's chads 2 Vasc score is 4 she was given a dose of Lovenox. An echo has been ordered. 04/28/20 17:10 Patient 85-year-old female with history of COPD patient presented emergency department with a complaint tired fatigue palpitation over 1 week emergency department patient was found to have atrial fibrillation with RVR new onset patient was started on diltiazem drip rate is now trending down off the drip, patient seen by rivet spinner stop the amlodipine increase metoprolol, patient converted to sinus, [id number] score 4, started on Eliquis,patient will have a cardiac echo, patient with history of hyponatremia now sodium 116 seen by nephrology etiology uncertain was given 3% sodium chloride 240 ml, , will closely monitor and workup is in progress, patient is a former smoker history of COPD now wheezing will continue Xopenex neb Spiriva, and low-dose Solu-Medrol to help with her wheezing will continue to monitor will have a PT OT evaluate the patient (2) Chronic obstructive pulmonary disease, unspecified: Code(s): J44.9 - Chronic obstructive pulmonary disease, unspecified Status: Chronic Assessment and Plan: Continue with patient's inhalers. She may need to p.r.n. dosing as well. Patient is chronically on oxygen at 2 L per nasal cannula. Continue with Symbicort and Spiriva (3) Hypothyroidism: Code(s): E03.9 - Hypothyroidism, unspecified Status: Chronic Assessment and Plan: thyroid level within normal limits and continue levothyroxine. (4) Mixed hyperlipidemia: Code(s): E78.2 - Mixed hyperlipidemia Status: Acute Assessment and Plan: Continue with simvastatin (5) Essential (primary) hypertension: Code(s): I10 - Essential (primary) hypertension Status: Acute Assessment and Plan: Patient was on metoprolol extended release and is now on metoprolol q.i.d.. Continue with hydrochlorothiazide. And amlodipine. (6) Generalized anxiety disorder: Code(s): F41.1 - Generalized anxiety disorder Status: Acute Assessment and Plan: Continue with alprazolam. Subjective Date/time seen: 04/28/20 17:10 Patient 85-year-old female with history of COPD patient presented emergency department with a complaint tired fatigue palpitation over 1 week emergency department patient was found to have atrial fibrillation with RVR new onset patient was started on diltiazem drip rate is now trending down off the drip, patient seen by rivet spinner stop the amlodipine increase metoprolol, patient converted to sinus, [id number] score 4, started on Eliquis,patient will have a cardiac echo, patient with history of hyponatremia now sodium 116 seen by nephrology etiology uncertain was given 3% sodium chloride 240 ml, , will closely monitor and workup is in progress, patient is a former smoker history of COPD now wheezing will continue Xopenex neb Spiriva, and low-dose Solu-Medrol to help with her wheezing will continue to monitor will have a PT OT evaluate the patient Review of Systems Review of Systems: All systems reviewed & are unremarkable except as noted in HPI and below Exam Const: General: comfortable and no acute distress HENMT: General nose exam: Normal nares present Mouth: Yes moist mucous membranes Eyes: General: appearance normal, both eyes and all related structures Sclera: sclerae normal Neck: Neck: supple Resp: Other: Bilateral fair entry with wheezing and rhonchi Cardio: Rate: regular rate Rhythm: regular rhythm GI: Auscultation: normal bowel sounds Skin: General skin exam: nor
[2020-04-28] MEDS: METOPROLOL TARTRATE 25 MG TABLET 75 MG PO (18:05)
[2020-04-28 18:35] LABS: Blood Urea Nitrogen 20 mg/dL (7-17); Calcium 8.4 mg/dL (8.4-10.2); Carbon Dioxide 30 mmol/L (22-30); Chloride 80 mmol/L (98-107); Estimated CRCL calculation 59 ml/min; Estimated Glomerular Filt Rate > 60; Glucose 152 mg/dL (65-105); Potassium 3.9 mmol/L (3.4-5.0); Sodium 119 mmol/L (137-145)
[2020-04-28] MEDS: APIXABAN 5 MG TABLET PO (20:31)
[2020-04-28] MEDS: ALPRAZOLAM 0.5 MG TABLET PO (20:32)
[2020-04-28 22:28] LABS: Blood Urea Nitrogen 19 mg/dL (7-17); Calcium 8.1 mg/dL (8.4-10.2); Carbon Dioxide 30 mmol/L (22-30); Chloride 81 mmol/L (98-107); Estimated CRCL calculation 59 ml/min; Estimated Glomerular Filt Rate > 60; Glucose 150 mg/dL (65-105); Potassium 3.9 mmol/L (3.4-5.0); Sodium 118 mmol/L (137-145)
[2020-04-29] VITALS (26 sets, daily range): BP systolic 111–139; BP diastolic 62–83; PULSE 60–100; RESP 16–20; TEMP 36.1–37; O2SAT 95–100
[2020-04-29] MEDS: LEVALBUTEROL NEB 1.25 MG/3 ML 0.63 MG INHALATION ×4 (02:13→20:07)
[2020-04-29 04:51] LABS: Hematocrit 31.4 % (37.0-47.0); Hemoglobin 11.3 g/dL (12.0-15.0); Mean Corpuscular Hemoglobin 34.9 pg (26-34); Mean Corpuscular Volume 96.9 fl (80-100); Mean Platelet Volume 8.4 fl (7.4-10.4); Platelet Count Result 210 k/mm3 (150-375); Red Blood Count 3.24 M/mm3 (4.2-5.4); Red Cell Distribution Width 12.1 % (11.5-14.5); White Blood Count 5.8 K/mm3 (4.5-10.0)
[2020-04-29] MEDS: LEVOTHYROXINE SODIUM 88 MCG TABLET PO (05:25)
[2020-04-29 05:28] LABS: Albumin Level 3.5 g/dL (3.5-5.1); Blood Urea Nitrogen 17 mg/dL (7-17); Calcium 8.3 mg/dL (8.4-10.2); Carbon Dioxide 29 mmol/L (22-30); Chloride 84 mmol/L (98-107); Estimated CRCL calculation 59 ml/min; Estimated Glomerular Filt Rate > 60; Glucose 131 mg/dL (65-105); Phosphorus 2.9 mg/dL (2.5-4.5); Potassium 3.8 mmol/L (3.4-5.0); Sodium 120 mmol/L (137-145)
[2020-04-29] MEDS: SIMVASTATIN 20 MG TABLET PO (08:49)
[2020-04-29] MEDS: APIXABAN 5 MG TABLET PO ×2 (08:49→20:06)
[2020-04-29] MEDS: MAGNESIUM OXIDE 400 MG TABLET PO (08:49)
[2020-04-29] MEDS: methylPREDNISolone SOD SUCC 125 MG VIAL 60 MG IV PUSH (08:49)
[2020-04-29] MEDS: METOPROLOL TARTRATE 25 MG TABLET 75 MG PO ×2 (08:49→16:47)
--- NOTE | 2020-04-29 09:43 | PM.PNCARD ---
Progress Note: A&P Assessment and Plan (1) Atrial fibrillation with rapid ventricular response: Code(s): I48.91 - Unspecified atrial fibrillation Status: Acute Assessment and Plan: -New diagnosis atrial fibrillation with rapid ventricular response. Onset likely 5-7 days ago given symptom complex. Converted to normal sinus rhythm 04/29/2020. Apixaban 5 mg every 12 hours initiated. Tolerating Metoprolol 75 mg q.12 hours. Wheezes noted by the nurse today but not on my assessment this morning. -CHADS2-Vasc score 4 (HTN, age, including female sex (3 otherwise): As she does not have clear contraindications to anticoagulation her embolic stroke risk appears to outweigh bleeding risk. -Troponins negative x3 -2D echocardiogram 04/27/2020: 1. Left ventricular chamber dimension is normal. 2. Left ventricular systolic function is normal, estimated at 55-60%. 3. Left atrial chamber dimension is mildly enlarged. 4. Right ventricular chamber dimension is mildly enlarged. 5. Right ventricular systolic function is normal. 6. Right atrial chamber dimension is severely enlarged. 7. There is moderate tricuspid valve regurgitation. 8. Mild pulmonary hypertension, estimated pulmonary arterial systolic pressure is 34 mmHg. 9. Dilated inferior vena cava with >50% collapse upon inspiration consistent with elevated right atrial pressure, 10 mmHg. TSH 04/26/2020: 1.230. Magnesium level 2.0. Potassium 3.8 today. (2) Panlobular emphysema: Code(s): J43.1 - Panlobular emphysema Status: Acute Assessment and Plan: Per primary service. Continue oxygen supplementation, bronchodilator therapy as appropriate. (3) Essential (primary) hypertension: Code(s): I10 - Essential (primary) hypertension Status: Acute Assessment and Plan: BP at goal (4) Mixed hyperlipidemia: Code(s): E78.2 - Mixed hyperlipidemia Status: Acute Assessment and Plan: Continue simvastatin (5) Acute hyponatremia: Code(s): E87.1 - Hypo-osmolality and hyponatremia Status: Acute Assessment and Plan: Workup per primary service. Possibly secondary to hydrochlorothiazide. Improved today. Sodium of to 120. Additional Plan Plan discussed with Dr. Dominique 10:00 04/29/2020 Subjective Date/time seen: 04/29/20 09:43 Interval history: Follow-up for: Paroxysmal atrial fibrillation converted to normal sinus rhythm 04/28/2020, history of emphysema, hyponatremia Date of service: 04/29/2020 Subjective: Denied any discomfort. Short of breath with exertional activity. No lightheadedness when up to bedside commode. Review of Systems Constitutional: Constitutional: Denies excessive sweating and Reports weakness (Generalized) Eyes: Eyes: Denies blurry vision ENT: Reports Normal hearing present and Denies epistaxis Cardiovascular: Cardiovascular: Denies lightheadedness, Reports dyspnea and Reports dyspnea on exertion Respiratory: Respiratory: Reports cough (Dry), Reports dyspnea, Reports dyspnea on exertion and Denies wheezing Gastrointestinal: Gastrointestinal: Denies abdominal pain, Denies melena, Denies hematochezia, Denies diarrhea, Denies nausea and Denies vomiting Genitourinary: Genitourinary: Denies hematuria and Denies dysuria Musculoskeletal: Musculoskeletal: Denies back pain Integumentary/Breasts: Skin/Breast: Denies pruritus and Denies rash Neurologic: Denies dizziness and Reports weakness Psychiatric: Psychiatric: Denies anxiety Endocrine: Endocrine: Denies excessive sweating and Reports fatigue Hematologic/Lymphatic: Hematologic/Lymphatic: Denies easy bleeding and Reports easy bruising Allergic/Immunologic: Allergic/Immunologic: Denies GI upset with certain foods and Denies wheezing Exam Narrative: Exam Narrat
[2020-04-29 11:03] LABS: Blood Urea Nitrogen 14 mg/dL (7-17); Calcium 8.7 mg/dL (8.4-10.2); Carbon Dioxide 33 mmol/L (22-30); Chloride 84 mmol/L (98-107); Estimated CRCL calculation 59 ml/min; Estimated Glomerular Filt Rate > 60; Glucose 139 mg/dL (65-105); Potassium 3.8 mmol/L (3.4-5.0); Sodium 122 mmol/L (137-145)
[2020-04-29 16:07] LABS: Blood Urea Nitrogen 18 mg/dL (7-17); Calcium 8.4 mg/dL (8.4-10.2); Carbon Dioxide 32 mmol/L (22-30); Chloride 84 mmol/L (98-107); Estimated CRCL calculation 51 ml/min; Estimated Glomerular Filt Rate > 60; Glucose 144 mg/dL (65-105); Potassium 3.8 mmol/L (3.4-5.0); Sodium 122 mmol/L (137-145)
--- NOTE | 2020-04-29 16:24 | PC.NURSE ---
This patient, Wendy Castañeda, was transferred to [facility] on 04/29/20 at 1624. Personal belongings sent with patient. Report given to JOSHUA Royal. Appropriate documentation sent with patient.
--- NOTE | 2020-04-29 16:42 | PC.NURSE ---
This patient, Wendy Castañeda, was received from IMU on 04/29/20 at 1630. Personal belongings list checked and signed. Patient/family oriented to unit policies and routines
--- NOTE | 2020-04-29 17:21 | PM.IMPN ---
Progress Note: A&P Assessment and Plan (1) Atrial fibrillation with rapid ventricular response: Code(s): I48.91 - Unspecified atrial fibrillation Status: Acute Assessment and Plan: 04/29/20 17:21 The patient is currently on a Cardizem drip. She is being transitioned to oral metoprolol. She will be on metoprolol a q.i.d.. On metoprolol extended release so that is on hold. Patient's chads 2 Vasc score is 4 she was given a dose of Lovenox. An echo has been ordered. Patient 85-year-old female with history of COPD patient presented emergency department with a complaint tired fatigue palpitation over 1 week emergency department patient was found to have atrial fibrillation with RVR new onset patient was started on diltiazem drip rate is now trending down off the drip, patient seen by materials engineer stop the amlodipine increase metoprolol, patient converted to sinus, [id number] score 4, started on Eliquis,patient will have a cardiac echo, patient with history of hyponatremia now sodium 116 seen by nephrology etiology uncertain was given 3% sodium chloride 240 ml, today patient states feeling much better sodium today is 122, will closely monitor and workup is in progress, patient is a former smoker history of COPD now wheezing will continue Xopenex neb Spiriva, and low-dose Solu-Medrol to help with her wheezing will continue to monitor will have a PT OT evaluate the patient, I spoke with the patient's daughter and answered all her questions (2) Chronic obstructive pulmonary disease, unspecified: Code(s): J44.9 - Chronic obstructive pulmonary disease, unspecified Status: Chronic Assessment and Plan: Continue with patient's inhalers. She may need to p.r.n. dosing as well. Patient is chronically on oxygen at 2 L per nasal cannula. Continue with Symbicort and Spiriva (3) Hypothyroidism: Code(s): E03.9 - Hypothyroidism, unspecified Status: Chronic Assessment and Plan: thyroid level within normal limits and continue levothyroxine. (4) Mixed hyperlipidemia: Code(s): E78.2 - Mixed hyperlipidemia Status: Acute Assessment and Plan: Continue with simvastatin (5) Essential (primary) hypertension: Code(s): I10 - Essential (primary) hypertension Status: Acute Assessment and Plan: Patient was on metoprolol extended release and is now on metoprolol q.i.d.. Continue with hydrochlorothiazide. And amlodipine. (6) Generalized anxiety disorder: Code(s): F41.1 - Generalized anxiety disorder Status: Acute Assessment and Plan: Continue with alprazolam. Subjective Date/time seen: 04/29/20 17:21 The patient is currently on a Cardizem drip. She is being transitioned to oral metoprolol. She will be on metoprolol a q.i.d.. On metoprolol extended release so that is on hold. Patient's chads 2 Vasc score is 4 she was given a dose of Lovenox. An echo has been ordered. Patient 85-year-old female with history of COPD patient presented emergency department with a complaint tired fatigue palpitation over 1 week emergency department patient was found to have atrial fibrillation with RVR new onset patient was started on diltiazem drip rate is now trending down off the drip, patient seen by materials engineer stop the amlodipine increase metoprolol, patient converted to sinus, [id number] score 4, started on Eliquis,patient will have a cardiac echo, patient with history of hyponatremia now sodium 116 seen by nephrology etiology uncertain was given 3% sodium chloride 240 ml, today patient states feeling much better sodium today is 122, will closely monitor and workup is in progress, patient is a former smoker history of COPD now wheezing will continue Xopenex neb Spiriva, and low-dose Solu-Medrol to help with her wheezing will continue to monitor will have a PT OT evaluate the patient, I spoke with the patient's daughter and answered all her questions Review of Systems Review of Sy
--- NOTE | 2020-04-29 18:20 | PM.PNNEP ---
Progress Note: A&P Assessment and Plan (1) Hyponatremia: Code(s): E87.1 - Hypo-osmolality and hyponatremia Status: Acute Assessment and Plan: unclear baseline sodium level (although has been 129mmol/L in 2013) suspect multifactorial etiology: - HCTZ use - previous use of hypotonic IVFs with use of cardizem gtt - COPD along with exacerbation of this condition HCTZ discontinued on fluid restriction s/p 3% saline infusion follow-up on serum/urine osmolality, SPE and UPE follow trend of sodium level (2) COPD exacerbation: Code(s): J44.1 - Chronic obstructive pulmonary disease with (acute) exacerbation Status: Acute Assessment and Plan: improvement noted continue supplemental oxygen, nebulizer treatments, inhalers, and steroids (3) Atrial fibrillation with RVR: Code(s): I48.91 - Unspecified atrial fibrillation Status: Acute Assessment and Plan: Cardiology following continue rate control strategy (4) Essential (primary) hypertension: Code(s): I10 - Essential (primary) hypertension Status: Acute Assessment and Plan: reasonable control at this time follow trend of hemodynamics Will continue to follow. Subjective Date/time seen: 04/29/20 18:20 Overall, she states that she is feeling better; sodium level noted to be slowly improving; no other acute issues or complaints at this time; breathing/respiratory status better as well. Exam Narrative: Exam Narrative: General: WD/WN male/female in NAD Heart: normal S1 and S2; no rub Lungs: coarse with a few wheezes Abdomen: soft, nontender, nondistended, positive bowel sounds Extremities: no cyanosis or clubbing; no edema Skin: warm and dry Objective Data Vital Signs Vital Signs: Vital Signs Temp Pulse Resp BP Pulse Ox 04/29/20 16:47 67 04/29/20 16:00 69 04/29/20 15:00 68 20 04/29/20 14:50 65 20 04/29/20 12:00 36.7 C 70 16 139/62 98 04/29/20 11:47 98 04/29/20 10:00 67 04/29/20 09:50 98 04/29/20 09:05 66 20 04/29/20 08:55 68 20 04/29/20 08:49 69 04/29/20 08:45 100 04/29/20 08:00 71 04/29/20 07:49 36.1 C L 72 16 135/83 95 04/29/20 06:00 66 04/29/20 04:00 36.6 C 66 18 111/75 95 04/29/20 02:25 66 20 04/29/20 02:15 61 20 04/29/20 02:14 68 20 04/29/20 02:00 63 04/29/20 00:00 64 04/28/20 23:53 36.7 C 66 20 132/70 94 04/28/20 22:00 70 04/28/20 21:01 71 20 04/28/20 20:00 70 04/28/20 19:39 36.6 C 66 20 138/76 93 Intake/Output Intake/Output: Intake & Output 04/26/20 04/27/20 04/28/20 04/29/20 23:59 23:59 23:59 23:59 Intake Total 100 2595 744 480 Output Total 150 300 300 Balance -50 2295 744 180 Meds/Results Medications: Active Medications Generic Name Dose Route Start Last Admin Trade Name Freq PRN Reason Stop Dose Admin Alprazolam 0.5 mg 04/26/20 21:00 04/28/20 20:32 Xanax PO 0.5 mg HS CHARLEE Administration Apixaban 5 mg 04/28/20 21:00 04/29/20 08:49 Eliquis PO 5 mg Q12HR CHARLEE Administration Budesonide/Formoterol Fumarate 2 puff 04/26/20 20:00 04/29/20 08:57 Symbicort 160-4.5 Mcg (*Sp) Inhaler INHALATION 2 puff Q12HRT CHARLEE Administration Levalbuterol HCl 0.63 mg 04/27/20 20:00 04/29/20 14:55 Xopenex 1.25 Mg/3 Ml INHALATION 0.63 mg Q6HRT CHARLEE Administration Levothyroxine Sodium 88 mcg 04/27/20 06:30 04/29/20 05:25 Synthroid PO 88 mcg DAILY@0630 CHARLEE Administration Magnesium Oxide 400 mg 04/27/20 10:30 04/29/20 08:49 Mag-Ox PO 400 mg QAM CHARLEE Administration Methylprednisolone Sodium Succinate 60 mg 04/28/20 10:05 04/29/20 08:49 Solu-Medrol IV PUSH 60 mg DAILY CHARLEE Administration Metoprolol Tartrate 75 mg 04/28/20 17:00 04/29/20 16:47 Lopressor PO 75 mg BID CHARLEE Administration Simvastatin 20 mg 06
[2020-04-29] MEDS: ALPRAZOLAM 0.5 MG TABLET PO (20:06)
[2020-04-29 22:01] LABS: Blood Urea Nitrogen 23 mg/dL (7-17); Calcium 8.4 mg/dL (8.4-10.2); Carbon Dioxide 30 mmol/L (22-30); Chloride 84 mmol/L (98-107); Estimated CRCL calculation 51 ml/min; Estimated Glomerular Filt Rate > 60; Glucose 136 mg/dL (65-105); Potassium 4.1 mmol/L (3.4-5.0); Sodium 120 mmol/L (137-145)
[2020-04-30] VITALS (20 sets, daily range): BP systolic 125–135; BP diastolic 60–66; PULSE 20–101; RESP 12–66; TEMP 36.7–37.3; O2SAT 92–96
[2020-04-30] MEDS: LEVALBUTEROL NEB 1.25 MG/3 ML 0.63 MG INHALATION ×4 (01:58→19:19)
[2020-04-30 02:09] LABS: Blood Urea Nitrogen 22 mg/dL (7-17); Calcium 8.5 mg/dL (8.4-10.2); Carbon Dioxide 33 mmol/L (22-30); Chloride 86 mmol/L (98-107); Estimated CRCL calculation 51 ml/min; Estimated Glomerular Filt Rate > 60; Glucose 150 mg/dL (65-105); Potassium 3.9 mmol/L (3.4-5.0); Sodium 123 mmol/L (137-145)
[2020-04-30 05:49] LABS: Hemoglobin 11.4 g/dL (12.0-15.0); Mean Corpuscular HGB Conc 35.6 g/dl (32-36); Mean Corpuscular Hemoglobin 34.8 pg (26-34); Mean Corpuscular Volume 97.6 fl (80-100); Mean Platelet Volume 8.2 fl (7.4-10.4); Platelet Count Result 224 k/mm3 (150-375); Red Blood Count 3.28 M/mm3 (4.2-5.4); Red Cell Distribution Width 12.3 % (11.5-14.5)
[2020-04-30 06:13] LABS: Blood Urea Nitrogen 20 mg/dL (7-17); Calcium 8.6 mg/dL (8.4-10.2); Carbon Dioxide 33 mmol/L (22-30); Chloride 88 mmol/L (98-107); Estimated CRCL calculation 51 ml/min; Estimated Glomerular Filt Rate > 60; Glucose 133 mg/dL (65-105); Magnesium 2.2 mg/dL (1.6-2.3); Potassium 3.6 mmol/L (3.4-5.0); Sodium 126 mmol/L (137-145)
[2020-04-30] MEDS: LEVOTHYROXINE SODIUM 88 MCG TABLET PO (06:39)
--- NOTE | 2020-04-30 09:40 | PM.PNNEP ---
Progress Note: A&P Assessment and Plan (1) Hyponatremia: Code(s): E87.1 - Hypo-osmolality and hyponatremia Status: Acute Assessment and Plan: unclear baseline sodium level (although has been 129mmol/L in 2013) suspect multifactorial etiology: - HCTZ use - previous use of hypotonic IVFs with use of cardizem gtt - COPD/jaimee disease along with exacerbation of this condition sodium improving with interventions to date: - HCTZ discontinued - on fluid restriction - s/p 3% saline infusion follow-up on serum/urine osmolality, SPE and UPE follow trend of sodium level (2) COPD exacerbation: Code(s): J44.1 - Chronic obstructive pulmonary disease with (acute) exacerbation Status: Acute Assessment and Plan: improvement noted continue supplemental oxygen, nebulizer treatments, inhalers, and steroids (3) Atrial fibrillation with RVR: Code(s): I48.91 - Unspecified atrial fibrillation Status: Acute Assessment and Plan: Cardiology following continue rate control strategy (4) Essential (primary) hypertension: Code(s): I10 - Essential (primary) hypertension Status: Acute Assessment and Plan: reasonable control at this time follow trend of hemodynamics Will continue to follow. Subjective Date/time seen: 04/30/20 09:40 No new issues or problems to report at this time; feels reasonably well; no apparent distress voiced; respiratory status/breathing has improved as well. Exam Narrative: Exam Narrative: General: WD/WN female in NAD Heart: normal S1 and S2; no rub Lungs: coarse with a few wheezes Abdomen: soft, nontender, nondistended, positive bowel sounds Extremities: no cyanosis or clubbing; no edema Skin: warm and intact Objective Data Vital Signs Vital Signs: Vital Signs Temp Pulse Resp BP Pulse Ox 04/30/20 07:55 101 H 16 94 04/30/20 06:00 36.9 C 64 12 135/66 95 04/30/20 04:00 66 04/30/20 02:04 66 18 04/30/20 01:58 63 18 04/30/20 00:00 62 04/29/20 22:00 37.0 C 68 16 122/66 96 04/29/20 20:14 64 20 04/29/20 20:12 96 04/29/20 20:08 60 20 04/29/20 20:00 60 04/29/20 16:47 67 06/22/20 16:00 69 04/29/20 15:00 68 20 04/29/20 14:50 65 20 04/29/20 12:00 36.7 C 70 16 139/62 98 04/29/20 11:47 98 04/29/20 10:00 67 04/29/20 09:50 98 Intake/Output Intake/Output: Intake & Output 04/27/20 04/28/20 04/29/20 04/30/20 23:59 23:59 23:59 23:59 Intake Total 2595 744 720 0 Output Total 300 300 Balance 2295 744 420 0 Meds/Results Medications: Active Medications Generic Name Dose Route Start Last Admin Trade Name Freq PRN Reason Stop Dose Admin Alprazolam 0.5 mg 04/26/20 21:00 04/29/20 20:06 Xanax PO 0.5 mg HS CHARLEE Administration Apixaban 5 mg 04/28/20 21:00 04/29/20 20:06 Eliquis PO 5 mg Q12HR CHARLEE Administration Budesonide/Formoterol Fumarate 2 puff 04/26/20 20:00 04/30/20 07:56 Symbicort 160-4.5 Mcg (*Sp) Inhaler INHALATION 2 puff Q12HRT CHARLEE Administration Levalbuterol HCl 0.63 mg 04/27/20 20:00 04/30/20 07:54 Xopenex 1.25 Mg/3 Ml INHALATION 0.63 mg Q6HRT CHARLEE Administration Levothyroxine Sodium 88 mcg 04/27/20 06:30 04/30/20 06:39 Synthroid PO 88 mcg DAILY@0630 CHARLEE Administration Magnesium Oxide 400 mg 04/27/20 10:30 04/29/20 08:49 Mag-Ox PO 400 mg QAM CHARLEE Administration Methylprednisolone Sodium Succinate 60 mg 04/28/20 10:05 04/29/20 08:49 Solu-Medrol IV PUSH 60 mg DAILY CHARLEE Administration Metoprolol Tartrate 75 mg 04/28/20 17:00 04/29/20 16:47 Lopressor PO 75 mg BID CHARLEE Administration Simvastatin 20 mg 04/27/20 09:00 04/29/20 08:49 Zocor PO 20 mg DAILY CHARLEE Administration Tiotropium Palmer 1 cap 04/27/20 09:00 04/30/20 07:56 Spiriva INHALATION 1 cap QAM
[2020-04-30] MEDS: APIXABAN 5 MG TABLET PO ×2 (09:48→20:45)
[2020-04-30] MEDS: methylPREDNISolone SOD SUCC 125 MG VIAL 60 MG IV PUSH (09:48)
[2020-04-30] MEDS: MAGNESIUM OXIDE 400 MG TABLET PO (09:48)
[2020-04-30] MEDS: SIMVASTATIN 20 MG TABLET PO (09:48)
[2020-04-30] MEDS: METOPROLOL TARTRATE 25 MG TABLET 75 MG PO ×2 (09:49→17:47)
--- NOTE | 2020-04-30 14:38 | PM.IMPN ---
Progress Note: A&P Assessment and Plan (1) Atrial fibrillation with rapid ventricular response: Code(s): I48.91 - Unspecified atrial fibrillation Status: Acute Assessment and Plan: 04/30/20 14:38 The patient is currently on a Cardizem drip. She is being transitioned to oral metoprolol. She will be on metoprolol a q.i.d.. On metoprolol extended release so that is on hold. Patient's chads 2 Vasc score is 4 she was given a dose of Lovenox. An echo has been ordered. Patient 85-year-old female with history of COPD patient presented emergency department with a complaint tired fatigue palpitation over 1 week emergency department patient was found to have atrial fibrillation with RVR new onset patient was started on diltiazem drip rate is now trending down off the drip, patient seen by brainer stop the amlodipine increase metoprolol, patient converted to sinus, [id number] score 4, started on Eliquis,patient will have a cardiac echo, patient with history of hyponatremia now sodium 116 seen by nephrology etiology uncertain was given 3% sodium chloride 240 ml, today patient states feeling much better sodium today is 122, will closely monitor and workup is in progress, patient is a former smoker history of COPD now wheezing will continue Xopenex neb Spiriva, and low-dose Solu-Medrol to help with her wheezing, patient clinically symptoms are improving she is not a short of breath and there is minimally wheezing, will taper sodium to 50 mg q.day, sodium is trending up, may discharge the patient home tomorrow is okay with diamond die driller (2) Chronic obstructive pulmonary disease, unspecified: Code(s): J44.9 - Chronic obstructive pulmonary disease, unspecified Status: Chronic Assessment and Plan: Continue with patient's inhalers. She may need to p.r.n. dosing as well. Patient is chronically on oxygen at 2 L per nasal cannula. Continue with Symbicort and Spiriva (3) Hypothyroidism: Code(s): E03.9 - Hypothyroidism, unspecified Status: Chronic Assessment and Plan: thyroid level within normal limits and continue levothyroxine. (4) Mixed hyperlipidemia: Code(s): E78.2 - Mixed hyperlipidemia Status: Acute Assessment and Plan: Continue with simvastatin (5) Essential (primary) hypertension: Code(s): I10 - Essential (primary) hypertension Status: Acute Assessment and Plan: Patient was on metoprolol extended release and is now on metoprolol q.i.d.. Continue with hydrochlorothiazide. And amlodipine. (6) Generalized anxiety disorder: Code(s): F41.1 - Generalized anxiety disorder Status: Acute Assessment and Plan: Continue with alprazolam. Subjective Date/time seen: 04/30/20 14:38 The patient is currently on a Cardizem drip. She is being transitioned to oral metoprolol. She will be on metoprolol a q.i.d.. On metoprolol extended release so that is on hold. Patient's chads 2 Vasc score is 4 she was given a dose of Lovenox. An echo has been ordered. Patient 85-year-old female with history of COPD patient presented emergency department with a complaint tired fatigue palpitation over 1 week emergency department patient was found to have atrial fibrillation with RVR new onset patient was started on diltiazem drip rate is now trending down off the drip, patient seen by brainer stop the amlodipine increase metoprolol, patient converted to sinus, [id number] score 4, started on Eliquis,patient will have a cardiac echo, patient with history of hyponatremia now sodium 116 seen by nephrology etiology uncertain was given 3% sodium chloride 240 ml, today patient states feeling much better sodium today is 122, will closely monitor and workup is in progress, patient is a former smoker history of COPD now wheezing will continue Xopenex neb Spiriva, and low-dose Solu-Medrol to help with her wheezing, patient clinically symptoms are improving she is not a short of
--- NOTE | 2020-04-30 16:18 | PM.PNCARD ---
Progress Note: A&P Assessment and Plan (1) Atrial fibrillation with rapid ventricular response: Code(s): I48.91 - Unspecified atrial fibrillation Status: Acute Assessment and Plan: -New diagnosis atrial fibrillation with rapid ventricular response. Onset likely 5-7 days ago given symptom complex. Converted to normal sinus rhythm 04/29/2020, maintaining NSR. Apixaban 5 mg every 12 hours initiated. Tolerating Metoprolol 75 mg q.12 hours. Wheezes noted, pt says better than usual. Will cont metorolol. -CHADS2-Vasc score 4 (HTN, age, including female sex (3 otherwise): As she does not have clear contraindications to anticoagulation her embolic stroke risk appears to outweigh bleeding risk. -Troponins negative x3 -2D echocardiogram 04/27/2020: 1. Left ventricular chamber dimension is normal. 2. Left ventricular systolic function is normal, estimated at 55-60%. 3. Left atrial chamber dimension is mildly enlarged. 4. Right ventricular chamber dimension is mildly enlarged. 5. Right ventricular systolic function is normal. 6. Right atrial chamber dimension is severely enlarged. 7. There is moderate tricuspid valve regurgitation. 8. Mild pulmonary hypertension, estimated pulmonary arterial systolic pressure is 34 mmHg. 9. Dilated inferior vena cava with >50% collapse upon inspiration consistent with elevated right atrial pressure, 10 mmHg. -TSH 04/26/2020: 1.230. -Reviewed the use of anticaogulant w/ pt; avoid ASA, NSAIA, etc. REviewed atrial fib, risk of recurrence, CVA etc. -Increase activity, home soon. (2) Panlobular emphysema: Code(s): J43.1 - Panlobular emphysema Status: Acute Assessment and Plan: Per primary service. Continue oxygen supplementation, bronchodilator therapy as appropriate. Pt says she's on home O2 hs at home, now continuously. (3) Essential (primary) hypertension: Code(s): I10 - Essential (primary) hypertension Status: Acute Assessment and Plan: BP at goal (4) Mixed hyperlipidemia: Code(s): E78.2 - Mixed hyperlipidemia Status: Acute Assessment and Plan: Continue simvastatin (5) Acute hyponatremia: Code(s): E87.1 - Hypo-osmolality and hyponatremia Status: Acute Assessment and Plan: Workup per primary service. Possibly secondary to hydrochlorothiazide. Improving. Subjective Date/time seen: 04/30/20 16:18 Interval history: Follow-up for: Paroxysmal atrial fibrillation converted to normal sinus rhythm 04/28/2020, history of emphysema, hyponatremia 04/29/2020 Visit: Subjective: Denied any discomfort. Short of breath with exertional activity. No lightheadedness when up to bedside commode. Date of SErvice: 04/30/2020 Pt feeling near baseline. Has been up to a chair and BSC but not ambulating to the BR. No CP, palps. Says she is wheezing less here than she does at home. Tele shows NSR w/ APCs. Review of Systems Constitutional: Constitutional: Reports fatigue and Reports weakness ENT: Denies epistaxis Cardiovascular: Cardiovascular: Denies chest pain, Reports pedal edema (chronic mild edema) and Denies palpitations Respiratory: Respiratory: Denies dyspnea and Reports wheezing Gastrointestinal: Gastrointestinal: Denies abdominal pain Musculoskeletal: Musculoskeletal: Denies back pain Integumentary/Breasts: Skin/Breast: Reports unusual bruising (Always bruises easily) Neurologic: Denies confusion Psychiatric: Psychiatric: Reports no additional psychiatric complaints Exam Const: General: comfortable and no acute distress HENMT: Mouth: Yes moist mucous membranes Eyes: EOM: EOMs intact bilaterally Neck: Neck: supple Resp: Auscultation: wheezes (Miild scattered wheezes) Cardio: Rate: regular rate Rhythm: regular rhythm He
[2020-04-30] MEDS: ALPRAZOLAM 0.5 MG TABLET PO (20:45)
[2020-04-30 21:48] LABS: Albumin 2.9 g/dL (3.8-4.8); Alpha 1 Globulin 0.4 g/dL (0.2-0.3); Alpha 2 Globulin 0.7 g/dL (0.5-0.9); Beta 1 Globulin 0.5 g/dL (0.4-0.6); Gamma Globulin 0.8 g/dL (0.8-1.7); Protein, Total 5.6 g/dL (6.1-8.1)
[2020-05-01] VITALS (14 sets, daily range): BP systolic 141; BP diastolic 68; PULSE 53–67; RESP 12–20; TEMP 37.2; O2SAT 86–99
[2020-05-01] MEDS: LEVALBUTEROL NEB 1.25 MG/3 ML 0.63 MG INHALATION ×2 (02:49→07:35)
[2020-05-01] MEDS: LEVOTHYROXINE SODIUM 88 MCG TABLET PO (06:13)
[2020-05-01 06:24] LABS: Hematocrit 35.7 % (37.0-47.0); Hemoglobin 12.4 g/dL (12.0-15.0); Mean Corpuscular HGB Conc 34.7 g/dl (32-36); Mean Corpuscular Hemoglobin 34.7 pg (26-34); Platelet Count Result 251 k/mm3 (150-375); Red Blood Count 3.57 M/mm3 (4.2-5.4); Red Cell Distribution Width 12.7 % (11.5-14.5); White Blood Count 11.9 K/mm3 (4.5-10.0)
[2020-05-01 06:42] LABS: Blood Urea Nitrogen 24 mg/dL (7-17); Calcium 8.7 mg/dL (8.4-10.2); Carbon Dioxide 36 mmol/L (22-30); Chloride 89 mmol/L (98-107); Estimated CRCL calculation 59 ml/min; Estimated Glomerular Filt Rate > 60; Glucose 107 mg/dL (65-105); Magnesium 2.1 mg/dL (1.6-2.3); Potassium 3.3 mmol/L (3.4-5.0); Sodium 129 mmol/L (137-145)
[2020-05-01] MEDS: METOPROLOL TARTRATE 25 MG TABLET 75 MG PO (08:34)
[2020-05-01] MEDS: SIMVASTATIN 20 MG TABLET PO (08:34)
[2020-05-01] MEDS: APIXABAN 5 MG TABLET PO (08:34)
[2020-05-01] MEDS: MAGNESIUM OXIDE 400 MG TABLET PO (08:35)
[2020-05-01] MEDS: methylPREDNISolone SOD SUCC 125 MG VIAL 60 MG IV PUSH (08:36)
[2020-05-01] MEDS: POTASSIUM CHLORIDE 20 MEQ TABLET 40 MEQ PO (10:17)
--- NOTE | 2020-05-01 10:20 | PM.PNCARD ---
Progress Note: A&P Assessment and Plan (1) Atrial fibrillation with rapid ventricular response: Code(s): I48.91 - Unspecified atrial fibrillation Status: Acute Assessment and Plan: -New diagnosis atrial fibrillation with rapid ventricular response. Onset likely 5-7 days prior to admission given symptom complex. Converted to normal sinus rhythm 04/29/2020 Maintaining NSR. Apixaban 5 mg every 12 hours initiated. Tolerating Metoprolol 75 mg q.12 hours. Tolerating this dose with minimal wheezing (2) Panlobular emphysema: Code(s): J43.1 - Panlobular emphysema Status: Acute Assessment and Plan: Per primary service. Continue oxygen supplementation, bronchodilator therapy as appropriate. She is on O2 at home fat hs now continuously. (3) Essential (primary) hypertension: Code(s): I10 - Essential (primary) hypertension Status: Acute Assessment and Plan: BP at goal (4) Mixed hyperlipidemia: Code(s): E78.2 - Mixed hyperlipidemia Status: Acute Assessment and Plan: Continue simvastatin (5) Acute hyponatremia: Code(s): E87.1 - Hypo-osmolality and hyponatremia Status: Acute Assessment and Plan: Workup per primary service. Most likely secondary to hydrochlorothiazide. Would not resume at discharge Improving. Basic metabolic panel and magnesium in 1 week. (6) Hypokalemia: Code(s): E87.6 - Hypokalemia Status: Acute Assessment and Plan: Supplement before discharge Additional Plan Plan discussed with Dr. Vidal 1020 05/01/2020 Subjective Date/time seen: 05/01/20 10:20 Interval history: Follow-up for: Paroxysmal atrial fibrillation converted to normal sinus rhythm 04/28/2020, history of emphysema, hyponatremia Date of service: 05/01/2020 Subjective: No discomfort. Short of breath significantly improved. Very slight wheezes but better admission. No palpitations. No dizziness or lightheadedness. Review of Systems Constitutional: Constitutional: Denies excessive sweating and Reports weakness (Improve) Eyes: Eyes: Denies blurry vision ENT: Reports Normal hearing present, Denies dizziness and Denies epistaxis Cardiovascular: Cardiovascular: Denies lightheadedness and Reports dyspnea on exertion (Significantly improved) Respiratory: Respiratory: Reports cough (Dry), Reports dyspnea on exertion (Significantly improved) and Reports wheezing (Slight but significantly less than at home) Gastrointestinal: Gastrointestinal: Denies abdominal pain, Denies melena, Denies hematochezia, Denies diarrhea, Denies nausea and Denies vomiting Genitourinary: Genitourinary: Denies hematuria and Denies dysuria Musculoskeletal: Musculoskeletal: Denies back pain Integumentary/Breasts: Skin/Breast: Denies pruritus and Denies rash Neurologic: Reports Normal hearing present, Denies dizziness and Reports weakness Psychiatric: Psychiatric: Denies anxiety Endocrine: Endocrine: Denies excessive sweating Hematologic/Lymphatic: Hematologic/Lymphatic: Denies easy bleeding and Reports easy bruising Allergic/Immunologic: Allergic/Immunologic: Denies GI upset with certain foods and Denies wheezing Exam Narrative: Exam Narrative: General: Well developed, alert and oriented x3 sitting in chair ready to go home. No apparent distress, comfortable, pleasant, and cooperative. Head: atraumatic, normocephalic Eyes: EOM intact, sclerae anicteric, conjunctivae unremarkable Ears/Nose: external inspection of ears and nose were grossly normal, O2 via nasal canula Mouth/Throat: oral mucosa pink and moist Neck: supple, normal range of motion, trachea midline. Cardiac: Regular rate and rhythm, normal S1-S2, no appreciable murmurs, distant heart sounds
--- NOTE | 2020-05-01 12:17 | PM.DS ---
DS: Admitting Diagnosis Admitting Diagnosis Admitting Diagnosis: Unspecified atrial fibrillation DS: Discharge Diagnosis Discharge Diagnosis (1) Atrial fibrillation with rapid ventricular response: Code(s): I48.91 - Unspecified atrial fibrillation Status: Acute Assessment and Plan: Patient 85-year-old female with history of COPD patient presented emergency department with a complaint tired fatigue palpitation over 1 week emergency department patient was found to have atrial fibrillation with RVR new onset patient was started on diltiazem drip rate is now trending down off the drip, patient seen by plumbing warehouse helper stop the amlodipine increase metoprolol, patient converted to sinus, [id number] score 4, started on Eliquis. Pt discharged on metoprolol and eliquis. Patient with history of hyponatremia now sodium 116 seen by nephrology etiology uncertain was given 3% sodium chloride, sodium today is 129. (2) Chronic obstructive pulmonary disease, unspecified: Code(s): J44.9 - Chronic obstructive pulmonary disease, unspecified Status: Chronic Assessment and Plan: Continue with patient's inhalers. Patient is chronically on oxygen at 2 L per nasal cannula. Pt to continue on this at home. Continue with Symbicort and Spiriva (3) Hypothyroidism: Code(s): E03.9 - Hypothyroidism, unspecified Status: Chronic Assessment and Plan: Pt to continue levothyroxine. (4) Mixed hyperlipidemia: Code(s): E78.2 - Mixed hyperlipidemia Status: Acute Assessment and Plan: Continue with simvastatin (5) Essential (primary) hypertension: Code(s): I10 - Essential (primary) hypertension Status: Acute Assessment and Plan: Patient was on metoprolol extended release and is now on metoprolol bid dosing. (6) Generalized anxiety disorder: Code(s): F41.1 - Generalized anxiety disorder Status: Acute Assessment and Plan: Continue with alprazolam. DS: Summary Time Spent with Patient Time attestation: Total time spent providing and/or coordinating discharge services:40 minutes on day of discharge. Exam Narrative: Exam Narrative: Comfortable on 1 liter of oxygen Const: General: cooperative, healthy appearing and other (Pleasant ) Resp: Effort & Inspection: normal respiratory effort Auscultation: clear to auscultation bilaterally Other: Clear Cardio: Palpation: normal PMI Rate: regular rate and tachycardic Rhythm: regular rhythm and abnormal rhythm Heart sounds: S1 normal heart sound present and S2 normal heart sound present Peripheral pulses: Peripheral pulses 2+ throughout Other: Irregularly irregular Skin: General skin exam: normal color Lesions: no lesions Rashes: no rashes Trauma: no lacerations or abrasions Wounds: no wounds Hair: normal Nails: normal Neuro: General: oriented to person, oriented to place, oriented to time and patient oriented x3 Cranial nerves: Yes Equal, round and reactive pupils present and Yes Normal hearing present Cognition (Neuro): normal cognition Speech: normal speech Gait exam (Neuro): Normal gait present Motor exam (neuro): 5/5 motor strength present throughout Sensory Exam: normal sensation Extrem: General: normal to inspection Right upper extremity: normal to inspection and shoulder/upper arm Left upper extremity: normal to inspection and shoulder/upper arm Right lower extremity: normal to inspection and edema Details: pitting and 1+ Left lower extremity: normal to inspection and edema Details: pitting and 1+ Psych: Appearance: grossly normal Mental Status: mental status grossly normal Speech and movement: Normal speech and movement present Affect: normal affect and Anxious affect present Attitude: cooperative Thought process: Normal thought process present Insight: Good insight present (Psych) Judgement: Good judgement present (Psych) DS: Data Data Completed and Pending Labs on day of discharge:
--- NOTE | 2020-05-01 13:58 | HOMEO2EVAL ---
Home Oxygen Evaluation RC: Home Oxygen (O2) Evaluation Start: 05/01/20 10:15 Freq: ONCE Status: Active Protocol: RPE Activity Type Activity Date Activity User E-Sign Co-Sign Detail Recorded Client Recorded Date Recorded By Document 05/01/20 11:40 DONIS [email or web address] 05/01/20 13:58 DONIS Document 05/01/20 11:42 DONIS [email or web address] 05/01/20 13:58 DONIS Document 05/01/20 11:45 DONIS [email or web address] 05/01/20 13:58 DONIS Document 05/01/20 11:55 DONIS [email or web address] 05/01/20 13:58 DONIS 05/01/20 05/01/20 05/01/20 11:40 11:42 11:45 Home O2 Evaluation Test Phase Resting Resting Exercise Oxygen Delivery Room Air Nasal Cannula Nasal Cannula Oxygen Flow Rate (L/min) 1 1 Pulse Oximetry (90-100 %) 86 L 94 91 Pulse Rate (60-100 beats/min) 53 L 66 Home Oxygen Evaluation Comments Treatment Charges O2 Evaluation 05/01/20 11:55 Home O2 Evaluation Test Phase Resting Oxygen Delivery Nasal Cannula Oxygen Flow Rate (L/min) 1 Pulse Oximetry (90-100 %) 94 Pulse Rate (60-100 beats/min) 54 L Home Oxygen Evaluation Comments PT REQUIRES 1 AT REST AND WITH ACTIVITY Treatment Charges
--- NOTE | 2020-05-01 13:59 | PCRCNOTE ---
PT HAS [facility] RESPIRATORY CARE FOR HOME O2 CURRENTLY. DAUGHTER WILL BE BRINGING IN PORTABLE O2 FOR TRANSPORT HOME
--- NOTE | 2020-05-01 14:31 | P.CDI_ITS ---
CDI Query Clarification Request -COPD, unspecified documented. - patient is a former smoker history of COPD now wheezing will continue Xopenex neb Spiriva, and low-dose Solu-Medrol to help with her wheezing will continue to monitor. documented -Pt placed on O2 at 2-3L weaned to 1L Please clarify if COPD is: * Exacerbated * Stable * Unable to determine <Selina Garcia RN - Last Filed: 05/01/20 14:34> Mild COPD excerbation <Linette Coto MD - Last Filed: 05/07/20 07:43>
[2020-05-02 03:50] LABS: Osmolality, Urine 222 mOsm/kg (50-1200)
== END 2020-05-01 14:45 | disposition home health service (06) | DRG 309 ==
LOC: ANHED 14:03 → ANHIMU 14:18 → ANH2MED 04-30 01:53 → ANHIMU 05-03 14:06
PROVIDERS: Family Medicine; Internal Medicine Cardiovascular Disease; Internal Medicine Nephrology; Admitting Provider Internal Medicine; Emergency Provider Emergency Medicine; PCP Family Medicine; Visit Provider Family Medicine
DX: I48.91 Unspecified atrial fibrillation (principal); E87.1 Hypo-osmolality and hyponatremia; J96.10 Chronic respiratory failure, unspecified whether with hypoxia or hypercapnia; I27.20 Pulmonary hypertension, unspecified; J43.1 Panlobular emphysema; Z99.81 Dependence on supplemental oxygen; E03.9 Hypothyroidism, unspecified; E78.2 Mixed hyperlipidemia; I10 Essential (primary) hypertension; E87.6 Hypokalemia; I07.1 Rheumatic tricuspid insufficiency; F41.1 Generalized anxiety disorder; Z87.891 Personal history of nicotine dependence
CPT/HCPCS: 36415; 71045; 80048; 80069; 82533; 83735; 83880; 83930; 83935; 84155; 84165; 84443; 84484; 85025; 85027; 85610; 85730; 93005; 93306; 94618; 94640; 94667; 94668; 96365; 96366; 96372; 97161; 97165; 99285; A9270; G0378; J1650; J2930; J7131

== ENCOUNTER 2020-10-07 11:07 | Emergency (ER) | payer MEDICARE, SELFPAY ==
[2020-10-07] VITALS (10 sets, daily range): BP systolic 160–199; BP diastolic 75–89; PULSE 64–82; RESP 20–26; TEMP 36.7; O2SAT 98–100
--- NOTE | ~2020-10-07 | CT_ITS ---
EXAMINATION: CT brain wo con DATE: 10/07/2020 11:50 INDICATION: Dizziness. TECHNIQUE: Computed tomography (CT) of the head was performed without intravenous contrast. The mA wa s adjusted according to patient size. Iterative reconstruction technique was employed. The dose-lengt h product was 605.33 mGy-cm. COMPARISON: None FINDINGS: There are scattered areas of low attenuation in the cerebral white matter. There is no intr acranial hemorrhage, acute infarction, or abnormal intracranial mass lesion. The ventricles are annia l in size. There are likely changes of ocular lens replacement surgeries. The paranasal sinuses are c lear. The mastoid air cells are normal. IMPRESSION: 1. Extensive nonspecific cerebral white matter disease, which likely represents chronic small vessel ischemic disease. Reviewed, dictated and finalized at location A. RUMENTATION ENGINEERING TECHNICIAN
--- NOTE | ~2020-10-07 | XR_ITS ---
EXAMINATION: XR chest 1V portable DATE: 10/07/2020 12:05 INDICATION: Hypertension. TECHNIQUE: A single frontal view of the chest was obtained. COMPARISON: Chest single view 04/26/2020 FINDINGS: There are lucencies in the lungs, consistent with emphysema. No pleural effusion or pneumot horax. The heart size is normal. IMPRESSION: 1. Emphysema. Reviewed, dictated and finalized at location A. RING MACHINE OPERATOR IMPRESSION: 1. Emphysema.
--- NOTE | 2020-10-07 11:33 | ECG_ITS ---
Measurements Intervals [place] Rate: 67 P: 75 NE: 209 QRS: -49 QRSD: 76 T: 39 QT: 391 QTc: 413 Interpretive Statements SINUS RHYTHM LEFT ANTERIOR FASCICULAR BLOCK CANNOT RULE OUT SEPTAL INFARCT, AGE INDETERMINATE INFERIOR INFARCT, AGE INDETERMINATE BASELINE ARTIFACT- I, II, III, AVR, AVL, AVF ABNORMAL ECG Electronically Signed On 10-07-2020 12:18:53 ATHLETIC TEAM PHYSICIAN by Slick Romero D.O.
--- NOTE | 2020-10-07 11:40 | ED.GENADULT ---
HPI - General Adult General Chief complaint: Weakness Stated complaint: high BP Time Seen by Provider: 10/07/20 11:10 Source: patient and family Mode of arrival: ambulatory Limitations: no limitations History of Present Illness HPI narrative: Patient is an 85-year-old female who presents to emergency department for evaluation of feeling dizzy noting this morning that she felt very dizzy to the point where she was having trouble getting out of bed patient lives at home patient in the last 10 days has been experiencing some dizziness did have recent change in her blood pressure medication metoprolol started taking 2 doses in the morning she now takes 1. Patient's evening dose of metoprolol has remained the same this was changed by primary care who saw the patient in the recent past to make these changes patient was seen because she had had a fall at home did strike the right side of the head did not have any imaging was sent home and continues to have slight dizziness from time to time over the last several days has been taking her home blood pressure and found to have some systolic pressures around 200. Patient took her medication this morning. Patient was recently diagnosed with atrial fibrillation has been in the hospital. Patient has not seen cardiology for follow-up yet and has appointment in November. Patient is currently on Eliquis. Patient notes she has been compliant with all of her medications. Patient denies other falls URI symptoms or complaints and on arrival is resting comfortably in the room in no distress and does not appear uncomfortable Related Data Allergies Allergy/AdvReac Type Severity Reaction Status Date / Time duloxetine AdvReac Unknown Nausea Verified 10/07/20 13:18 nitrofurantoin AdvReac Unknown Nausea Verified 10/07/20 13:18 Review of Systems Review of Systems: All systems reviewed & are unremarkable except as noted in HPI and below PMFSH Past Medical History Medical History (Updated 10/07/20 @ 13:39 by Royer Cordova PA-C) Acute hyponatremia Chronic obstructive pulmonary disease, unspecified Essential (primary) hypertension Hypothyroidism Mixed hyperlipidemia Surgical History Surgical History H/O cataract extraction H/O hemorrhoidectomy H/O tubal ligation Hx of removal of ovary Family History Family History Father Hypertension Mother Hypertension Social History Social History Social History: The patient is . She has a daughter and a son. Oralia Deras is her durable power tax associate attorney for healthcare. The patient will allow full code at this time but does not want to live on a ventilator. She will allow it for limited amount of time but does not want to live like a vegetable. 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 She is to smoke until 1989. Had she has glass a wine occasionally. Smoking packs per day: 1 Smoking cigarettes per day: 20.0 Years smoked: 30 Smoking pack-years: 30.00 Smoking status: Former smoker Tobacco type: cigarettes Smoking end date: 11/08/89 Alcohol intake: current Other substance usage details: 1 glass of wine Gender identity (if verbalized by the patient): Female Spiritual care concerns: No Exam Narrative: Exam Narrative: GENERAL: Well-appearing, well-nourished, and in no acute distress. HEAD: Normocephalic, atraumatic. EYES: PERRLA and EOMI. ENT: Nares clear, no rhinorrhea or epistaxis. Mucous membranes moist. Bilateral TMs nonerythematous nonbulging. NECK: Supple. No adenopathy or masses. CHEST: Clear to auscultation. No respiratory distress. No wheezes rales or rhonchi HEART: Regular rate and rhythm. No murmur heard. Normal peripheral pulses. ABDOMEN: Soft, nontender, nondistended EXTREMITIES: Normal range of
[2020-10-07 12:15] LABS: Basophils Percent Auto 0.3 % (0.2-1.2); Eosinophils Absolute Auto 0.1 K/mm3 (0-0.3); Eosinophils Percent Auto 1.5 % (0-4.4); Hematocrit 37.1 % (37.0-47.0); Hemoglobin 12.4 g/dL (12.0-15.0); Immature Granulocyte Absolute 0.01 K/mm3 (0.00-0.031); Immature Granulocyte Percent A 0.1 % (0-0.5); Lymphocytes Absolute Auto 2.05 K/mm3 (0.9-3.2); Lymphocytes Percent Auto 30.7 % (18.3-44.2); Mean Corpuscular HGB Conc 33.4 g/dl (32-36); Mean Corpuscular Hemoglobin 33.7 pg (26-34); Mean Corpuscular Volume 100.8 fl (80-100); Mean Platelet Volume 7.9 fl (7.4-10.4); Monocytes Absolute Auto 0.6 K/mm3 (0.1-0.6); Monocytes Percent Auto 9.4 % (2.6-8.5); Neutrophils Absolute Auto 3.9 K/mm3 (1.3-6.7); Platelet Count Result 240 k/mm3 (150-375); Red Blood Count 3.68 M/mm3 (4.2-5.4); White Blood Count 6.7 K/mm3 (4.5-10.0)
[2020-10-07 12:25] LABS: Potassium 4.2 mmol/L (3.4-5.0)
[2020-10-07 12:28] LABS: Anion Gap 6 mmol/L (8-16); Blood Urea Nitrogen 16 mg/dL (7-17); Calcium 9.5 mg/dL (8.4-10.2); Carbon Dioxide 30 mmol/L (22-30); Chloride 100 mmol/L (98-107); Estimated CRCL calculation 52 ml/min; Estimated Glomerular Filt Rate > 60; Glucose 99 mg/dL (65-105); Sodium 136 mmol/L (137-145)
[2020-10-07 12:29] LABS: INR 1.2; Prothrombin Time 15.9 Seconds (11.1-14.7)
[2020-10-07 12:38] LABS: Troponin I < 0.012 ng/mL (0.000-0.034)
[2020-10-07 12:46] LABS: Add Urine Microscopic? YES; Appearance Urine Clear (Clear); Bilirubin Urine Negative (Negative); Blood Urine 1+ (Negative); Color Urine Straw (Yellow); Glucose Urine UA Negative (Negative); Ketones Urine Negative (Negative); Leukocyte Esterase Ur 2+ LEU/UL (Negative); Mucus Urine Rare /lpf; Nitrate Urine Negative (Negative); Protein Urine Negative (Negative); Specific Grav Ur 1.006 (1.001-1.035); Squamous Epithelial Cell Urine Occasional /hpf (Few); Urobilinogen Urine Negative mg/dL (<2.0); WBC Urine 51-75 /hpf
[2020-10-07 12:55] LABS: Partial Thromboplastin Time 30.9 SECONDS (22.3-36.8)
[2020-10-07] MEDS: METOPROLOL TARTRATE INJ 5 MG/5 ML VIAL IV PUSH (13:34)
== END 2020-10-07 14:20 | disposition home or self-care (01) ==
PROVIDERS: Emergency Medicine Emergency Medical Services; Emergency Provider Emergency Medicine; PCP Family Medicine
DX: N39.0 Urinary tract infection, site not specified (principal); I10 Essential (primary) hypertension; I48.91 Unspecified atrial fibrillation; Z79.01 Long term (current) use of anticoagulants; Z98.49 Cataract extraction status, unspecified eye; J44.9 Chronic obstructive pulmonary disease, unspecified; E03.9 Hypothyroidism, unspecified; E78.2 Mixed hyperlipidemia; Z87.891 Personal history of nicotine dependence; I44.0 Atrioventricular block, first degree; R94.31 Abnormal electrocardiogram [ECG] [EKG]
CPT/HCPCS: 36415; 70450; 71045; 80048; 81001; 84484; 85025; 85610; 85730; 87086; 87088; 93005; 96374; 99284

== ENCOUNTER 2020-12-05 17:08 | Emergency (ER) | payer MEDICARE, SELFPAY ==
[2020-12-05] VITALS (17 sets, daily range): BP systolic 129–149; BP diastolic 76–104; PULSE 69–90; RESP 16–38; TEMP 36.6; O2SAT 92–98
--- NOTE | ~2020-12-05 | XR_ITS ---
XR chest 1V portable DATE: 12/05/2020 17:40 INDICATION: Weakness TECHNIQUE: Portable AP chest on 11/27/2020 1742 hours COMPARISON: 10/07/2020 portable AP chest at 1200 hours FINDINGS: Borderline heart size. Aortic calcification. No hilar or mediastinal enlargement. The lungs are hyperinflated suggesting COPD. No pulmonary infiltrate or consolidation, pleural effusion or pulmonary vascular congestion or pneumo thorax. Diffuse osteopenia. IMPRESSION: COPD Reviewed, dictated and finalized at location A. NUE MANAGER IMPRESSION: COPD
--- NOTE | 2020-12-05 17:13 | ECG_ITS ---
Measurements Intervals [place] Rate: 85 P: 87 [place]: 208 QRS: -56 QRSD: 85 T: 44 QT: 347 QTc: 414 Interpretive Statements SINUS RHYTHM WITH FIRST DEGREE AV BLOCK LEFT ANTERIOR FASCICULAR BLOCK BASELINE ARTIFACT- I, II, III, AVR, V1-V2, V6 ABNORMAL ECG Electronically Signed On 12-05-2020 18:47:41 COMFORT FILLER by Slick Romeor D.O.
[2020-12-05 17:37] LABS: Basophils Percent Auto 0.2 % (0.2-1.2); Hematocrit 36.1 % (37.0-47.0); Hemoglobin 12.3 g/dL (12.0-15.0); Immature Granulocyte Absolute 0.01 K/mm3 (0.00-0.031); Immature Granulocyte Percent A 0.2 % (0-0.5); Lymphocytes Absolute Auto 0.67 K/mm3 (0.9-3.2); Lymphocytes Percent Auto 16.3 % (18.3-44.2); Mean Corpuscular HGB Conc 34.1 g/dl (32-36); Mean Corpuscular Hemoglobin 33.6 pg (26-34); Mean Corpuscular Volume 98.6 fl (80-100); Monocytes Absolute Auto 0.3 K/mm3 (0.1-0.6); Monocytes Percent Auto 8.3 % (2.6-8.5); Neutrophils Absolute Auto 3.1 K/mm3 (1.3-6.7); Platelet Count Result 211 k/mm3 (150-375); Red Blood Count 3.66 M/mm3 (4.2-5.4); Red Cell Distribution Width 13.1 % (11.5-14.5); White Blood Count 4.1 K/mm3 (4.5-10.0)
[2020-12-05 17:50] LABS: Alanine Aminotransferase 16 U/L (4-35); Albumin Level 4.1 g/dL (3.5-5.1); Alkaline Phosphatase 76 U/L (38-126); Anion Gap 7 mmol/L (8-16); Aspartate Amino Transferase 56 U/L (14-36); Bilirubin,Total 0.5 mg/dL (0.2-1.3); Blood Urea Nitrogen 15 mg/dL (7-17); Carbon Dioxide 26 mmol/L (22-30); Chloride 96 mmol/L (98-107); Estimated CRCL calculation 43 ml/min; Estimated Glomerular Filt Rate > 60; Glucose 156 mg/dL (65-105); INR 1.4; Potassium 3.8 mmol/L (3.4-5.0); Prothrombin Time 17.7 Seconds (11.1-14.7); Sodium 129 mmol/L (137-145)
[2020-12-05 17:51] LABS: Partial Thromboplastin Time 33.8 SECONDS (22.3-36.8)
[2020-12-05 18:01] LABS: Erythrocyte Sedimentation Rate 29 mm/hr (0-20)
--- NOTE | 2020-12-05 18:01 | ED.GENADULT ---
HPI - General Adult General Chief complaint: Chest Pain Stated complaint: weakness, palpations Time Seen by Provider: 12/05/20 17:20 Source: patient Mode of arrival: ambulatory Limitations: no limitations History of Present Illness HPI narrative: 85 years old white female came to the emergency room with her daughter complaining of not feeling well today. Probably weaker than before. Patient denies any fever, chills, nausea, vomiting, diarrhea, constipation, abdominal pain, chest pain, back pain, headache, sore throat, history of COVID-19 or exposure to anybody known having COVID-19. Patient also denies any new medication in the last 4 weeks. Patient lives alone. Related Data Home Medications Medication Instructions Recorded Confirmed metoprolol tartrate 25 mg tablet 25 mg PO BID tablet 11/18/20 11/18/20 alprazolam 0.5 mg PO HS 12/05/20 diltiazem HCl 120 mg PO HS 12/05/20 Allergies Allergy/AdvReac Type Severity Reaction Status Date / Time duloxetine AdvReac Unknown Nausea Verified 12/05/20 18:29 nitrofurantoin AdvReac Unknown Nausea Verified 12/05/20 18:29 Review of Systems Review of Systems: Narrative: CONSTITUTIONAL: Denies fever, chills, or sweats. EYES: Denies visual changes, redness, or discharge. ENT: Denies rhinorrhea, congestion, sore throat, or otalgia. CARDIOVASCULAR: Denies chest pain, intermittent palpitation RESPIRATORY: Denies cough or dyspnea. GASTROINTESTINAL: Denies abdominal pain, nausea, vomiting, or diarrhea. GENITOURINARY: Denies dysuria or hematuria. SKIN: Denies rash or itching. MUSCULOSKELETAL: Denies back pain, joint pain, or myalgia. NEUROLOGIC: Denies headache, numbness, or weakness. PSYCHIATRIC: Denies anxiety or depression. [facility] Past Medical History Medical History (Updated 12/05/20 @ 20:27 by Kavya Grace MD) Acute hyponatremia Chronic obstructive pulmonary disease, unspecified Essential (primary) hypertension Hypothyroidism Mixed hyperlipidemia Surgical History Surgical History H/O cataract extraction H/O hemorrhoidectomy H/O tubal ligation Hx of removal of ovary Family History Family History Father Hypertension Mother Hypertension Social History Social History Social History: The patient is . She has a daughter and a son. Oralia Deras is her durable power litigation attorney associate for healthcare. The patient will allow full code at this time but does not want to live on a ventilator. She will allow it for limited amount of time but does not want to live like a vegetable. 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 She is to smoke until 1989. Had she has glass a wine occasionally. Smoking packs per day: 1 Smoking cigarettes per day: 20.0 Years smoked: 30 Smoking pack-years: 30.00 Smoking status: Former smoker Tobacco type: cigarettes Smoking end date: 11/08/89 Alcohol intake: current Other substance usage details: 1 glass of wine Gender identity (if verbalized by the patient): Female Spiritual care concerns: No Exam Narrative: Exam Narrative: General appearance: Well-developed, well-nourished Skin: Normal color Head: Normocephalic, nontraumatic Eyes: Clear conjunctiva ENT: Oropharynx normal, ears normal, nose normal Neck: Supple, nontender Chest and respiratory: Airway patent, no respiratory distress, no accessory muscle use Heart: Regular rate/rhythm Abdomen: Soft, nontender, no organomegaly, quiet bowel sounds Vascular: Normal peripheral pulses, normal capillary refill. Musculoskeletal: Normal range of motion, nontender back Neurologic: Alert and oriented ?3, EXECUTIVE CASINO HOST is normal as tested, no gross motor deficit
[2020-12-05 18:02] LABS: Troponin I < 0.012 ng/mL (0.000-0.034)
[2020-12-05 18:20] LABS: Thyroid Stimulating Hormone 0.858 uIU/mL (0.465-4.680)
[2020-12-05] MEDS: SODIUM CHLORIDE 0.9% IV 1,000 ML 500 ML IV CONT (19:25)
--- NOTE | 2020-12-05 19:30 | PC.NURSE ---
patient assisted to use BSC. urine specimen collected. IVF started. ice water given. daughter and patient updated on plan and expected wait time.
[2020-12-05 19:46] LABS: Add Urine Microscopic? YES; Appearance Urine Clear (Clear); Bilirubin Urine Negative (Negative); Blood Urine Negative (Negative); Color Urine Yellow (Yellow); Glucose Urine UA Negative (Negative); Ketones Urine Trace mg/dL (Negative); Leukocyte Esterase Ur Negative LEU/UL (Negative); Mucus Urine Rare /lpf; Nitrate Urine Negative (Negative); Protein Urine 2+ mg/dL (Negative); Specific Grav Ur 1.014 (1.001-1.035); Squamous Epithelial Cell Urine Occasional /hpf (Few); Urobilinogen Urine Negative mg/dL (<2.0); WBC Urine 0-3 /hpf
== END 2020-12-05 20:35 | disposition home or self-care (01) ==
PROVIDERS: Emergency Medicine; Emergency Provider Emergency Medicine; Family Provider Family Medicine; PCP Family Medicine
DX: R53.1 Weakness (principal); E87.1 Hypo-osmolality and hyponatremia; J44.9 Chronic obstructive pulmonary disease, unspecified; I10 Essential (primary) hypertension; E03.9 Hypothyroidism, unspecified; E78.2 Mixed hyperlipidemia; Z98.49 Cataract extraction status, unspecified eye; Z87.891 Personal history of nicotine dependence; I44.0 Atrioventricular block, first degree; I44.4 Left anterior fascicular block
CPT/HCPCS: 36415; 71045; 80053; 81001; 84443; 84484; 85025; 85610; 85652; 85730; 93005; 96360; 99284; J7030

== ENCOUNTER 2020-12-26 19:00 | Inpatient (IN) | payer MEDICARE, SELFPAY ==
[2020-12-26] VITALS (11 sets, daily range): BP systolic 101–172; BP diastolic 65–126; PULSE 110–156; RESP 16–28; TEMP 36.1–36.9; O2SAT 96–99; BMI 26.2; BMI 26.3
--- NOTE | ~2020-12-26 | XR_ITS ---
EXAMINATION: XR chest 1V portable EXAM DATE: 12/26/2020 19:59 INDICATION: Shortness of breath for 5 days. History of high blood pressure. TECHNIQUE: Portable AP frontal chest x-ray was obtained. Comparison is made to prior examination from 12/05/2020. FINDINGS: Compared to previous examination, development of indistinct basilar reticulation, appearanc e most consistent with pulmonary edema. There are small pleural effusions. The cardiomediastinal silh ouette is prominent but magnified on this AP technique. There is no pneumothorax suspected. There are bony degenerative changes. Some chronic hyperinflation. IMPRESSION: Small pleural effusions, indistinct basilar reticulation, more consistent with edema pat n infection. Reviewed, dictated and finalized at location A. ONHOLE MAKER HAND IMPRESSION: Small pleural effusions, indistinct basilar reticulation, more con sistent with edema than infection.
--- NOTE | 2020-12-26 19:08 | ED.GENADULT ---
HPI - General Adult General Chief complaint: Shortness of Breath/Dyspnea Stated complaint: copd / sob x 5 days Time Seen by Provider: 12/26/20 19:07 Source: RN notes reviewed History of Present Illness HPI narrative: Patient presents emergency department from home for shortness of breath. Patient states symptoms been ongoing for the past 1 week and progressively worsening and she states that she was only wearing oxygen at night 2 L but starting this past Wednesday has started to wear it throughout the day states she is seen by her PCP yesterday and was prescribed spironolactone she does have a history of A. fib with RVR and is followed by Dr. Gomez states she has been taking her medication including her apixaban. She states that she had been on diuretics in past but she had had problems with hyponatremia she does note swelling in the lower extremities as well as increased shortness of breath with laying flat she denies any fevers or chills chest pain abdominal pain nausea vomiting Related Data Home Medications Medication Instructions Recorded Confirmed metoprolol tartrate 25 mg tablet 25 mg PO BID tablet 11/18/20 12/26/20 diltiazem HCl 120 mg PO HS 12/05/20 12/26/20 Allergies Allergy/AdvReac Type Severity Reaction Status Date / Time duloxetine AdvReac Unknown Nausea Verified 12/26/20 19:38 nitrofurantoin AdvReac Unknown Nausea Verified 12/26/20 19:38 Review of Systems Review of Systems: Narrative: Gen.: Denies fevers or chills ENT: Denies congestion Respiratory: See HPI CV: Denies chest pain or palpitations GI: Denies abdominal pain nausea, emesis or diarrhea Musculoskeletal: Denies back pain or muscle pain Neuro: Denies numbness, tingling, weakness or focal weakness Skin: Denies rash Except as documented, all other systems reviewed and negative [facility] Past Medical History Medical History (Updated 12/26/20 @ 21:05 by Lalit Arnold DO) Acute hyponatremia Chronic obstructive pulmonary disease, unspecified Essential (primary) hypertension Hypothyroidism Mixed hyperlipidemia Surgical History Surgical History H/O cataract extraction H/O hemorrhoidectomy H/O tubal ligation Hx of removal of ovary Family History Family History Father Hypertension Mother Hypertension Social History Social History Social History: The patient is . She has a daughter and a son. Oralia Deras is her durable power retail security professional for healthcare. The patient will allow full code at this time but does not want to live on a ventilator. She will allow it for limited amount of time but does not want to live like a vegetable. 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 She is to smoke until 1989. Had she has glass a wine occasionally. Smoking packs per day: 1 Smoking cigarettes per day: 20.0 Years smoked: 30 Smoking pack-years: 30.00 Smoking status: Former smoker Tobacco type: cigarettes Smoking end date: 11/08/89 Alcohol intake: current Other substance usage details: 1 glass of wine Gender identity (if verbalized by the patient): Female Spiritual care concerns: No Exam Narrative: Exam Narrative: APPEARANCE: No acute distress, nontoxic, resting in bed EYES: EOMI HEENT: Normocephalic, atraumatic, OMM RESPIRATORY: Mild respiratory distress crackles at the bilateral lung fernandez no wheezing CARDIOVASCULAR: Irregular irregular and tachycardic without murmurs rubs or gallops. ABDOMINAL: Soft, nontender, nondistended, no rebound or guarding MUSCULOSKELETAl: Moves all extremities. No clubbing, cyanosis 3+ edema the bilateral lower extremities NEURO: Awake and alert. Following commands, speech normal, no focal deficits SKIN:: Warm, dry. No rashes lesions or abrasions PSYCHIATRIC: Normal affect/mood,
--- NOTE | 2020-12-26 19:21 | ECG_ITS ---
Measurements Intervals [place] Rate: 133 P: [place]: 0 QRS: 23 QRSD: 75 T: 74 QT: 314 QTc: 467 Interpretive Statements ATRIAL FIBRILLATION WITH RAPID VENTRICULAR RESPONSE DELAYED PRECORDIAL R/S TRANSITION BORDERLINE ST-T WAVE ABNORMALITY- DIFFUSE LEADS BASELINE ARTIFACT- I, II, III, AVR, AVL, AVF, V2-V3 ABNORMAL ECG Electronically Signed On 12-27-2020 7:05:26 BANK OPERATIONS OFFICER by Slick Romero D.O.
[2020-12-26 19:46] LABS: Basophils Percent Auto 0.5 % (0.2-1.2); Eosinophils Absolute Auto 0.1 K/mm3 (0-0.3); Eosinophils Percent Auto 0.9 % (0-4.4); Hematocrit 35.4 % (37.0-47.0); Hemoglobin 11.8 g/dL (12.0-15.0); Immature Granulocyte Absolute 0.03 K/mm3 (0.00-0.031); Immature Granulocyte Percent A 0.4 % (0-0.5); Lymphocytes Absolute Auto 2.43 K/mm3 (0.9-3.2); Lymphocytes Percent Auto 31.2 % (18.3-44.2); Mean Corpuscular HGB Conc 33.3 g/dl (32-36); Mean Corpuscular Hemoglobin 33.3 pg (26-34); Mean Platelet Volume 8.1 fl (7.4-10.4); Monocytes Absolute Auto 0.9 K/mm3 (0.1-0.6); Monocytes Percent Auto 11.3 % (2.6-8.5); Neutrophils Absolute Auto 4.4 K/mm3 (1.3-6.7); Neutrophils Percent Auto 55.7 % (45.5-73.1); Platelet Count Result 273 k/mm3 (150-375); Red Blood Count 3.54 M/mm3 (4.2-5.4); White Blood Count 7.8 K/mm3 (4.5-10.0)
[2020-12-26] MEDS: dilTIAZem HCl INJ 25 MG/5 ML VIAL 5 MG IV PUSH (19:52)
[2020-12-26 19:59] LABS: INR 1.3; Lactic Acid Reflex 1.4 mmol/L (0.7-2.1); Prothrombin Time 17.1 Seconds (11.1-14.7)
[2020-12-26 20:00] LABS: Anion Gap 9 mmol/L (8-16); Blood Urea Nitrogen 21 mg/dL (7-17); Calcium 8.9 mg/dL (8.4-10.2); Carbon Dioxide 27 mmol/L (22-30); Chloride 95 mmol/L (98-107); Estimated Glomerular Filt Rate > 60; Glucose 105 mg/dL (65-105); Partial Thromboplastin Time 31.7 SECONDS (22.3-36.8); Potassium 3.8 mmol/L (3.4-5.0); Sodium 131 mmol/L (137-145)
[2020-12-26 20:12] LABS: NT Pro B Type Natriuretic Pept 2500 PG/ML (5-100); Troponin I < 0.012 ng/mL (0.000-0.034)
[2020-12-26] MEDS: METOPROLOL TARTRATE 50 MG TAB (21:05)
[2020-12-26] MEDS: FUROSEMIDE INJ 40 MG/4 ML VIAL (21:05)
--- NOTE | 2020-12-26 21:44 | PC.NURSE ---
Report received from JOSHUA Rosales.
--- NOTE | 2020-12-26 22:28 | ADMGEN ---
This patient, Wendy Castañeda, was admitted to IMU Room 231-01 on 12-26-20 at 2210. Patient/family oriented to hospital policies and general routines including ID bracelet, bed and alarms, visiting hours, pain management, procedures, bathroom and other care routines, personal items, smoking policy, room service/diet, and visiting hours. Information on how to activate the Rapid Response Team has been discussed. Patient/Family are encouraged to report perceived risks to care and to ask questions if they do not understand what they are told or what they should do.
--- NOTE | 2020-12-26 23:45 | PM.IMHP ---
H&P: HPI History of Present Illness Date/Time: 12/26/20 21:00 Chief Complaint: Increased shortness of breath Narrative: Wendy Castañeda is a 85 year old female with a past medical history of paroxysmal atrial fibrillation, chronic nighttime O2 use, COPD and CHF who presented to the ER via EMS with increased shortness of breath for the last 5-7 days. The patient usually uses 2 L of oxygen at night. On Wednesday the patient's primary care physician increased her oxygen use to 24/7 it and the patient was placed on a rescue inhaler. She reports that the rescue inhaler did seem to improve the shortness of breath. She denies having any chest pain. She did feel as if she had some odd sensation in her back which is usually her warning that she is having some AFib. She denies any palpitations. She has been having increasing orthopnea or for the last 2-3 days. She has also had an increasing dyspnea on exertion and increased lower extremity swelling for the last 5-6 days. She was given a prescription for spironolactone 25 mg on 12/26/2020 but had not yet started the prescription. She has chronic stress urinary incontinence is unchanged from baseline. She denies any dysuria or hematuria. She has noticed that her urine has been darker in appearance. She states that she has been drinking plenty of fluids and has been drinking some Gatorade to keep her sodium levels up. With her baseline sodium around 129. She does ambulate with a walker but her daughter noticed that the patient has not been able to stand up as well last 24 hours. The patient and family have been considering transitioning to a more assisted living situation in the near future. The patient's son as attempting to arrange this. Source of information is the patient who is a fair to good historian and her daughter who was at bedside. The patient's past medical records were also reviewed. Review of Systems Review of Systems: Narrative: 12 systems were reviewed with pertinent positives and negatives per HPI. Except as documented in the HPI, all other systems were reviewed and are negative. [facility] Past Medical History Medical History (Updated 12/27/20 @ 02:42 by Barbara Bustamante DO) Age-related osteoporosis without current pathological fracture CHF (congestive heart failure) Echocardiogram April 2020: EF of 55-60%, mild left atrial enlargement, severe right atrial enlargement, mild right ventricular enlargement, right ventricular systolic function normal, moderate tricuspid valve regurgitation, mild pulmonary hypertension with RVSP of 34, dilated inferior vena cava greater than 50% collapse upon inspiration consistent with elevated right atrial pressures of 10 Chronic obstructive pulmonary disease, unspecified PFTs November 2017 demonstrating severe obstructive ventilatory defect with marked decreased DLCO Chronic respiratory failure with hypoxia, on home O2 therapy Essential (primary) hypertension Herpes zoster conjunctivitis of left eye Hyponatremia With acute on chronic hyponatremia April 2020 thought to be due to diuretic therapy Hypothyroidism Mixed hyperlipidemia 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 She has a daughter and a son. 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 She is to smoke until 1989. She smoked a pack per day from her early 20's until about 62 years old. Had she has glass a wine occasionally.
[2020-12-27] VITALS (21 sets, daily range): BP systolic 101–148; BP diastolic 61–93; PULSE 84–144; RESP 18–24; TEMP 36.1–36.6; O2SAT 91–100
[2020-12-27 00:31] LABS: Troponin I < 0.012 ng/mL (0.000-0.034)
[2020-12-27 02:53] LABS: Anion Gap 4 mmol/L (8-16); Blood Urea Nitrogen 19 mg/dL (7-17); Calcium 9.1 mg/dL (8.4-10.2); Carbon Dioxide 31 mmol/L (22-30); Chloride 98 mmol/L (98-107); Estimated CRCL calculation 50 ml/min; Estimated Glomerular Filt Rate > 60; Glucose 109 mg/dL (65-105); Potassium 3.6 mmol/L (3.4-5.0); Sodium 133 mmol/L (137-145)
[2020-12-27 03:05] LABS: Troponin I < 0.012 ng/mL (0.000-0.034)
[2020-12-27 05:00] LABS: Basophils Percent Auto 0.5 % (0.2-1.2); Eosinophils Absolute Auto 0.1 K/mm3 (0-0.3); Eosinophils Percent Auto 0.8 % (0-4.4); Hematocrit 34.6 % (37.0-47.0); Hemoglobin 11.4 g/dL (12.0-15.0); Immature Granulocyte Absolute 0.02 K/mm3 (0.00-0.031); Immature Granulocyte Percent A 0.3 % (0-0.5); Lymphocytes Absolute Auto 1.63 K/mm3 (0.9-3.2); Lymphocytes Percent Auto 22.3 % (18.3-44.2); Mean Corpuscular HGB Conc 32.9 g/dl (32-36); Mean Corpuscular Hemoglobin 32.9 pg (26-34); Mean Corpuscular Volume 99.7 fl (80-100); Mean Platelet Volume 8.6 fl (7.4-10.4); Monocytes Absolute Auto 0.9 K/mm3 (0.1-0.6); Monocytes Percent Auto 12.9 % (2.6-8.5); Neutrophils Absolute Auto 4.6 K/mm3 (1.3-6.7); Neutrophils Percent Auto 63.2 % (45.5-73.1); Platelet Count Result 290 k/mm3 (150-375); Red Blood Count 3.47 M/mm3 (4.2-5.4); Red Cell Distribution Width 13.2 % (11.5-14.5); White Blood Count 7.3 K/mm3 (4.5-10.0)
[2020-12-27] MEDS: LEVOTHYROXINE SODIUM 88 MCG TABLET PO (06:46)
[2020-12-27] MEDS: METOPROLOL TARTRATE 50 MG TAB PO (09:02)
[2020-12-27] MEDS: APIXABAN 5 MG TABLET PO ×2 (09:02→21:35)
--- NOTE | 2020-12-27 09:30 | PM.CNCAR ---
Assessment and Plan Additional Plan Elderly 85-year-old lady with severe COPD which appears to be the trigger for her paroxysmal atrial fibrillation based on evaluation from April last year. She is more short of breath again and back in atrial fib with RVR. Diltiazem is infusing intravenously and her beta-herminia has been increased but she is persisting in AFib. At this point I will continue her systemic anticoagulation with apixaban and transition her from metoprolol to sotalol for more aggressive antiarrhythmic treatment. Hopefully with this she will convert to sinus rhythm. If she does not we will plan to electrically cardiovert her before discharge. Unfortunately I got here this morning to make rounds just after she received this morning's dose of metoprolol and so I will not start the sotalol until this evening. Given her obviously severe lung disease I do not wish to double up on her beta-herminia dosage this morning. Zak Walsh MD [facility] History of Present Illness History of Present Illness Consult date/time: 12/27/20 09:30 Consult reason: atrial fibrillation Reason For Visit: Atrial fibrillation w/RVR, CHF Narrative: This is an 85-year-old woman that I am seeing at the request of the hospitalist for assistance with evaluation and treatment of atrial fibrillation. The patient is not known to me prior to this encounter but is known to other physicians of our practice. She was seen last year in April of 2020 with an episode of atrial fibrillation that was felt to be triggered by significant chronic lung disease. She carries the diagnosis of severe oxygen dependent COPD due to a previous history of cigarette smoking. Patient has not smoked for about 20 years at this time. She was short of breath and in AFib with RVR in April of last year. She was started on metoprolol and after rate control she converted to sinus rhythm. She was anticoagulated with apixaban. Echocardiogram at that time demonstrated normal left ventricular systolic function and no significant valvular abnormality. She did have severe right atrial dilatation. The patient has been followed in the office by Dr. Gomez of our practice and has not had a recognized recurrence of atrial fibrillation until now. She states that for about 5-6 days she has been having increasing shortness of breath. It is very difficult for her to say if she is aware of palpitations or tachycardia. She is not having any chest pain. She is compliant with her medication including her apixaban. She is currently receiving intravenous diltiazem and her metoprolol dosage was increased on admission to 50 mg q.12 from 25 mg. Review of Systems Constitutional: Constitutional: Reports weakness Eyes: Eyes: Reports no additional eye complaints ENT: Reports system reviewed and no additional complaints, except as documented Cardiovascular: Cardiovascular: Reports as per HPI Respiratory: Respiratory: Reports dyspnea Gastrointestinal: Gastrointestinal: Reports no additional gastrointestinal complaints Musculoskeletal: Musculoskeletal: Reports no additional musculoskeletal complaints Integumentary/Breasts: Skin/Breast: Reports system reviewed and no additional complaints, except as docu Neurologic: Reports system reviewed and no additional complaints, except as documented Endocrine: Endocrine: Reports no additional endocrine complaints Hematologic/Lymphatic: Hematologic/Lymphatic: Reports no additional hematologic/lymphatic complaints Allergic/Immunologic: Allergic/Immunologic: Reports no additional allergic/immunologic complaints [facility] Past Medical History Medical History (Updated 12/27/20 @ 02:42 by Barbara Bustamante DO) Age-related osteoporosis without current pathological fracture CHF (congestive heart failure) Echocardiogram April 2020: EF of 55-60%, mild left atrial enlargement, severe right atrial enlargement, mild right ventricular enlargement, right ventricular systolic functio
[2020-12-27] MEDS: POTASSIUM CHLORIDE 20 MEQ TABLET 40 MEQ PO ×2 (13:00→15:53)
--- NOTE | 2020-12-27 14:25 | PM.CNPUL ---
Assessment and Plan Assessment and plan (1) Acute exacerbation of CHF (congestive heart failure): Qualifiers: Heart failure type: right-sided Qualified Code(s): I50.813 - Acute on chronic right heart failure Code(s): I50.9 - Heart failure, unspecified Status: Acute Assessment and Plan: Elevated BNP of 2500 with interstitial infiltrates, normal Cr in setting Afib suggest a CHF exacerbation but a COPD Exacerbation may be concomitant. (2) COPD exacerbation: Code(s): J44.1 - Chronic obstructive pulmonary disease with (acute) exacerbation Status: Acute Assessment and Plan: - will start pulmicort 0.5 mg Q12h - ipratropium 0.5 mg Q6h - avoid albuterol and levobuterol at low doses is not very effective - start prednisone 20 mg PO daily for 5 days - start doxycyline 100 mg IV Q12h for 7 days - sputum culture - SARS-CoV-2 PCR to r/o COVID-19. (3) Atrial fibrillation with rapid ventricular response: Code(s): I48.91 - Unspecified atrial fibrillation Status: Acute Assessment and Plan: I'm ok with selective BB such as metoprolol to control Afib at the discretion of Cardiology and primary team. History of Present Illness History of Present Illness Consult date: 12/27/20 Chief complaint: Atrial fibrillation w/RVR, CHF Narrative: This is a very pleasant 85 y/o female with history of COPD, Afib who presents with progressive dyspnea, cough productive of clear to yellow sputum, orthopnea and LE edema. CXR on admission showed bilateral interstitial opacities with left pleural effusion which is new when compared to prior CXR. She also has hyperinflated lungs. She denies sore throat, runny nose, loss of taste or smell, n/v/diarrhea. She is cared for by her daughter and lives at home alone. She's had no known exposure to COVID-19. She was also found to be in rapid afib upon admission. Review of Systems Review of Systems: All systems reviewed & are unremarkable except as noted in HPI and below PMFSH Past Medical History Medical History (Updated 12/27/20 @ 02:42 by Barbara Bustamante, ) Age-related osteoporosis without current pathological fracture CHF (congestive heart failure) Echocardiogram April 2020: EF of 55-60%, mild left atrial enlargement, severe right atrial enlargement, mild right ventricular enlargement, right ventricular systolic function normal, moderate tricuspid valve regurgitation, mild pulmonary hypertension with RVSP of 34, dilated inferior vena cava greater than 50% collapse upon inspiration consistent with elevated right atrial pressures of 10 Chronic obstructive pulmonary disease, unspecified PFTs November 2017 demonstrating severe obstructive ventilatory defect with marked decreased DLCO Chronic respiratory failure with hypoxia, on home O2 therapy Essential (primary) hypertension Herpes zoster conjunctivitis of left eye Hyponatremia With acute on chronic hyponatremia April 2020 thought to be due to diuretic therapy Hypothyroidism Mixed hyperlipidemia 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 She has a daughter and a son. 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 She is to smoke until 1989. She smoked a pack per day from her early 20's until about 62 years old. Had she has glass a wine occasionally. She currently lives alone and ambulates with a walker. Primary care physician: Dr. Med Ludwig
[2020-12-27] MEDS: FUROSEMIDE INJ 40 MG/4 ML VIAL 20 MG IV PUSH (15:53)
[2020-12-27] MEDS: predniSONE 20 MG TABLET PO (15:53)
[2020-12-27] MEDS: acetaZOLAMIDE TAB 250 MG TABLET PO (15:56)
--- NOTE | 2020-12-27 16:03 | PM.IMPN ---
Progress Note: A&P Assessment and Plan (1) Atrial fibrillation with rapid ventricular response: Code(s): I48.91 - Unspecified atrial fibrillation Status: Acute (2) Acute exacerbation of CHF (congestive heart failure): Qualifiers: Heart failure type: right-sided Qualified Code(s): I50.813 - Acute on chronic right heart failure Code(s): I50.9 - Heart failure, unspecified Status: Acute Assessment and Plan: 12/27/20 16:03 Patient is 85-year-old female presented emergency department with a complaint of shortness of breath and with history of proximal atrial fibrillation went into RVR most likely multifactorial due to congestive heart failure as patient has elevated BNP of 2500 as well as long history of smoking and emphysema and has COPD, patient was started on diltiazem drip from emergency depart and continue metoprolol, patient was seen by chief service observer patient's rate is not controlled with diltiazem and metoprolol, cardiology is recommending to start the patient on sotalol 80 mg every q12hr, patient was seen by call out clerk started the patient Pulmicort, ipratropium 0.5mg q.6, prednisone 20 mg q.day for 5, doxycycline 100 mg b.i.d. for 7, sputum culture and test for COVID-19, will continue to monitor the patient, spoke with the patient's daughter and answered all her questions, will have a PT OT evaluate the patient and further recommendation to follow. (3) Hyponatremia: Code(s): E87.1 - Hypo-osmolality and hyponatremia Status: Acute Assessment and Plan: Patient with mild hyponatremia chronic clinically stable will monitor (4) Chronic respiratory failure with hypoxia, on home O2 therapy: Code(s): J96.11 - Chronic respiratory failure with hypoxia; Z99.81 - Dependence on supplemental oxygen Status: Inactive Assessment and Plan: Most likely multifactorial secondary to CHF and COPD plan is above (5) Chronic obstructive pulmonary disease, unspecified: Qualifiers: COPD type: unspecified COPD Qualified Code(s): J44.9 - Chronic obstructive pulmonary disease, unspecified Code(s): J44.9 - Chronic obstructive pulmonary disease, unspecified Status: Chronic Assessment and Plan: Patient seen by call out clerk plan is above Additional Plan The patient presented to the ER with increasing shortness of breath and orthopnea. She was found to be in AFib RVR on arrival. She received Cardizem push and was started on a Cardizem drip at 10. Heart rate still remained in the 130s. Cardiology recommended increasing her metoprolol to 50 mg b.i.d. and she received a dose in the ER. She has some right-sided heart failure and heart failure due to high cardiac output. The patient has had a history of chronic hyponatremia and had severe hyponatremia with on diuretics in the past. She is given 1 dose of IV Lasix 20 mg in the ER. Will monitor sodium closely and repeat BMP in a.m.. Patient is having some acute on chronic hypoxic respiratory failure. Likely secondary to CHF exacerbation but COPD exacerbation seems less likely based on symptoms. She does not have any active wheezing at this time and symptoms seem more consistent with CHF. Will continue patient's home albuterol inhaler and Symbicort. Continue supplemental oxygen at 2 L nasal cannula. 45 minutes spent in critical care activities. This case had a high probability of a clinically significant, sudden, or life threatening deterioration of this patient's condition which required my full and direct attention, intervention and personal management. This document was completed by using [employer] speech recognition software, therefore, portable pinch riveter variances may occur. Despite proof reading and review of records errors may persist. Subjective Date/time seen: 12/27/20 16:03 Patient is 85-year-old female presented emergency department with a complaint of shortness of breath and with history of pr
[2020-12-27] MEDS: IPRATROPIUM BR 0.02% INH SOLN 0.5 MG/2.5 ML VIAL INHALATION (20:46)
[2020-12-27] MEDS: BUDESONIDE RESPULE NEB 0.5 MG/2 ML AMP 1 MG INHALATION (20:46)
[2020-12-27] MEDS: ALPRAZolam (*CRX) 0.5 MG TABLET PO (21:36)
[2020-12-27] MEDS: SOTALOL HCL 80 MG TABLET PO (21:36)
[2020-12-27] MEDS: SIMVASTATIN 20 MG TABLET PO (21:36)
[2020-12-28] VITALS (24 sets, daily range): BP systolic 106–177; BP diastolic 62–91; PULSE 53–112; RESP 16–22; TEMP 36.1–36.8; O2SAT 94–100
[2020-12-28] MEDS: IPRATROPIUM BR 0.02% INH SOLN 0.5 MG/2.5 ML VIAL INHALATION ×4 (02:38→21:47)
--- NOTE | 2020-12-28 03:47 | ECG_ITS ---
Measurements Intervals [place] Rate: 64 P: CO: 0 QRS: -26 QRSD: 76 T: 120 QT: 397 QTc: 410 Interpretive Statements SINUS OR ECTOPIC ATRIAL RHYTHM ATRIAL PREMATURE COMPLEXES LOW QRS VOLTAGE IN LIMB LEADS CANNOT RULE OUT SEPTAL INFARCT, AGE INDETERMINATE BORDERLINE ST-T WAVE ABNORMALITY- DIFFUSE LEADS BASELINE ARTIFACT- I, II, III, AVR, AVL, AVF, V1-V6 ABNORMAL ECG Electronically Signed On 12-28-2020 8:03:14 STAFF RESEARCH SCIENTIST by Slick Romero D.O.
[2020-12-28 05:59] LABS: Hematocrit 36.3 % (37.0-47.0); Hemoglobin 11.6 g/dL (12.0-15.0); Mean Corpuscular Hemoglobin 32.8 pg (26-34); Mean Corpuscular Volume 102.5 fl (80-100); Mean Platelet Volume 8.3 fl (7.4-10.4); Platelet Count Result 233 k/mm3 (150-375); Red Blood Count 3.54 M/mm3 (4.2-5.4); Red Cell Distribution Width 13.2 % (11.5-14.5); White Blood Count 8.7 K/mm3 (4.5-10.0)
--- NOTE | 2020-12-28 06:00 | ECG_ITS ---
Measurements Intervals [place] Rate: 63 P: 52 [place]: 223 QRS: -3 QRSD: 71 T: 31 QT: 396 QTc: 408 Interpretive Statements SINUS OR ECTOPIC ATRIAL RHYTHM WITH FIRST DEGREE AV BLOCK CANNOT RULE OUT SEPTAL INFARCT, AGE INDETERMINATE BORDERLINE ST-T WAVE ABNORMALITY- DIFFUSE LEADS BASELINE ARTIFACT- I, II, III, AVR, AVL, AVF, V1, V3 ABNORMAL ECG Electronically Signed On 12-28-2020 14:42:34 TICKER INSTALLER by Slick Romero D.O.
[2020-12-28 06:09] LABS: Anion Gap 7 mmol/L (8-16); Blood Urea Nitrogen 19 mg/dL (7-17); Calcium 9.1 mg/dL (8.4-10.2); Carbon Dioxide 24 mmol/L (22-30); Chloride 97 mmol/L (98-107); Estimated CRCL calculation 43 ml/min; Estimated Glomerular Filt Rate > 60; Glucose 118 mg/dL (65-105); Magnesium 1.7 mg/dL (1.6-2.3); Potassium 4.3 mmol/L (3.4-5.0); Sodium 128 mmol/L (137-145)
[2020-12-28] MEDS: LEVOTHYROXINE SODIUM 88 MCG TABLET PO (06:17)
[2020-12-28] MEDS: BUDESONIDE RESPULE NEB 0.5 MG/2 ML AMP 1 MG INHALATION ×2 (08:57→21:47)
[2020-12-28] MEDS: acetaZOLAMIDE TAB 250 MG TABLET PO ×2 (09:27→18:00)
[2020-12-28] MEDS: APIXABAN 5 MG TABLET PO ×2 (09:27→20:40)
[2020-12-28] MEDS: SOTALOL HCL 80 MG TABLET PO ×2 (09:27→20:40)
[2020-12-28] MEDS: predniSONE 20 MG TABLET PO (10:00)
--- NOTE | 2020-12-28 14:09 | PM.PNPUL ---
Progress Note: A&P Assessment and Plan (1) Acute exacerbation of CHF (congestive heart failure): Qualifiers: Heart failure type: right-sided Qualified Code(s): I50.813 - Acute on chronic right heart failure Code(s): I50.9 - Heart failure, unspecified Status: Acute Assessment and Plan: Continue daily loop diuretics. (2) COPD exacerbation: Code(s): J44.1 - Chronic obstructive pulmonary disease with (acute) exacerbation Status: Acute Assessment and Plan: Will add ceftriaxone 1 g daily Continue azithromycin 500 mg daily Continue prednisone 20 mg daily for a total of 5 days Continue ipratropium 0.5 mg q.6 hours Continue Pulmicort 0.5 mg q.12 hours. PTOT and mobilization is encouraged. (3) Atrial fibrillation with rapid ventricular response: Code(s): I48.91 - Unspecified atrial fibrillation Status: Acute Assessment and Plan: Back in sinus rhythm. Subjective Date/time seen: 12/28/20 14:09 Interval history: She feels somewhat better today but still feels significantly short of breath with coughing. Review of Systems Review of Systems: All systems reviewed & are unremarkable except as noted in HPI and below Exam Const: General: cooperative and healthy appearing Nutritional Appearance: average body habitus and well nourished Orientation/consciousness: oriented to person, oriented to place, oriented to time and patient oriented x3 HENMT: Head: normal to inspection, normocephalic and atraumatic Eyes: General: appearance normal, both eyes and all related structures Neck: Neck: normal visual inspection, trachea midline and supple Resp: Effort & Inspection: Actively coughing and labored Auscultation: wheezes and diminished lung sounds Cardio: Jugular venous distension: JVD Rhythm: abnormal rhythm Heart sounds: S1 normal heart sound present and S2 normal heart sound present GI: Inspection: normal to inspection Auscultation: normal bowel sounds Skin: General skin exam: no rashes or lesions noted Neuro: General: oriented to person, oriented to place, oriented to time and patient oriented x3 Cognition (Neuro): normal cognition Speech: normal speech Extrem: General: normal exam except as noted Psych: Appearance: grossly normal and well kempt Mental Status: mental status grossly normal Objective Data Vital Signs Vital Signs: Vital Signs - 24 hr 12/27/20 16:00 12/27/20 18:00 12/27/20 20:00 Temperature 36.6 C 36.6 C Pulse Rate 94 95 86 Respiratory Rate 24 H 18 Blood Pressure 135/85 148/81 H Pulse Oximetry 98 95 12/27/20 20:49 12/27/20 20:50 12/27/20 21:05 Temperature Pulse Rate 96 93 Respiratory Rate 20 20 Blood Pressure Pulse Oximetry 96 12/27/20 21:36 12/27/20 22:00 12/28/20 00:00 Temperature 36.5 C Pulse Rate 98 98 85 Respiratory Rate 16 Blood Pressure 106/73 Pulse Oximetry 97 12/28/20 02:00 12/28/20 02:40 12/28/20 02:50 Temperature Pulse Rate 98 112 H 98 Respiratory Rate 18 18 Blood Pressure Pulse Oximetry 12/28/20 04:00 12/28/20 05:44 12/28/20 08:00 Temperature 36.6 C 36.1 C L Pulse Rate 53 L 57 L 67 Respiratory Rate 20 20 Blood Pressure 123/62 134/71 Pulse Oximetry 95 94 12/28/20 08:57 12/28/20 09:18 12/28/20 09:27 Temperature Pulse Rate 63 64 68 Respiratory Rate 20 20 Blood Pressure Pulse Oximetry 100 12/28/20 12:00 Temperature 36.8 C Pulse Rate 64 Respiratory Rate 20 Blood Pressure 133/71 Pulse Oximetry 100 Intake/Output Intake/Output: Intake & Output 12/25/20 12/26/20 12/27/20 12/28/20 23:59 23:59 23:59 23:59 Intake Total 1090 100 Output Total 300 Balance 790 100 Meds/Results Medications: Active Medications Generic Name Dose Route Start Last Admin Trade Name Freq PRN Reason Stop Dose Admin Acetazolamide 250 mg 12/27/20 17:00 12/28/20 09:27 Acetazolamide Tab 250 Mg Tablet PO 12/29/20 17:01 250 mg
[2020-12-28] MEDS: FUROSEMIDE INJ 40 MG/4 ML VIAL 20 MG IV PUSH (15:21)
--- NOTE | 2020-12-28 16:11 | PM.IMPN ---
Progress Note: A&P Assessment and Plan (1) Atrial fibrillation with rapid ventricular response: Code(s): I48.91 - Unspecified atrial fibrillation Status: Acute (2) Acute exacerbation of CHF (congestive heart failure): Qualifiers: Heart failure type: right-sided Qualified Code(s): I50.813 - Acute on chronic right heart failure Code(s): I50.9 - Heart failure, unspecified Status: Acute Assessment and Plan: 12/28/20 16:11 Patient is 85-year-old female presented emergency department with a complaint of shortness of breath and with history of proximal atrial fibrillation went into RVR most likely multifactorial due to congestive heart failure as patient has elevated BNP of 2500 as well as long history of smoking and emphysema and has COPD, patient was started on diltiazem drip from emergency depart and continue metoprolol, patient was seen by congregational care pastor patient's rate is not controlled with diltiazem and metoprolol, cardiology is recommending to start the patient on sotalol 80 mg every q12hr, patient was seen by medical receptionist assistant started the patient Pulmicort, ipratropium 0.5mg q.6, prednisone 20 mg q.day for 5, doxycycline 100 mg b.i.d. for 7, sputum culture and test for COVID-19, will continue to monitor the patient, spoke with the patient's daughter and answered all her questions, will have a PT OT evaluate the patient and further recommendation to follow. 12/28 patient is currently in isolation COVID is pending, patient states was able to sleep much better last night, patient on treated with sotalol 80 mg b.i.d. patient denies any chest pain or palpitation, patient's heart rate is controlled, patient does complain once she has coughing fit she becomes short of breath, patient seen by pulmonology being treated with pulmicort, prednisone, ipratropium and doxycycline, will continue to monitor (3) Hyponatremia: Code(s): E87.1 - Hypo-osmolality and hyponatremia Status: Acute Assessment and Plan: Patient with mild hyponatremia chronic clinically stable will monitor (4) Chronic respiratory failure with hypoxia, on home O2 therapy: Code(s): J96.11 - Chronic respiratory failure with hypoxia; Z99.81 - Dependence on supplemental oxygen Status: Inactive Assessment and Plan: Most likely multifactorial secondary to CHF and COPD plan is above (5) Chronic obstructive pulmonary disease, unspecified: Qualifiers: COPD type: unspecified COPD Qualified Code(s): J44.9 - Chronic obstructive pulmonary disease, unspecified Code(s): J44.9 - Chronic obstructive pulmonary disease, unspecified Status: Chronic Assessment and Plan: Patient seen by medical receptionist assistant plan is above Additional Plan The patient presented to the ER with increasing shortness of breath and orthopnea. She was found to be in AFib RVR on arrival. She received Cardizem push and was started on a Cardizem drip at 10. Heart rate still remained in the 130s. Cardiology recommended increasing her metoprolol to 50 mg b.i.d. and she received a dose in the ER. She has some right-sided heart failure and heart failure due to high cardiac output. The patient has had a history of chronic hyponatremia and had severe hyponatremia with on diuretics in the past. She is given 1 dose of IV Lasix 20 mg in the ER. Will monitor sodium closely and repeat BMP in a.m.. Patient is having some acute on chronic hypoxic respiratory failure. Likely secondary to CHF exacerbation but COPD exacerbation seems less likely based on symptoms. She does not have any active wheezing at this time and symptoms seem more consistent with CHF. Will continue patient's home albuterol inhaler and Symbicort. Continue supplemental oxygen at 2 L nasal cannula. 45 minutes spent in critical care activities. This case had a high probability of a clinically significant, sudden, or life threatening deterioration of this patient's condition which requi
--- NOTE | 2020-12-28 18:17 | PM.PNCARD ---
Progress Note: A&P Assessment and Plan (1) Atrial fibrillation with rapid ventricular response: Code(s): I48.91 - Unspecified atrial fibrillation Status: Acute Assessment and Plan: Patient with paroxysmal AFib, admitted with RVR. Sotalol initiated on 12/27/2020. Looks like she is in and out of sinus rhythm/AFib, and heart rate is better controlled. QT interval will need to be checked periodically to avoid proarrhythmic affects such as torsade V-tach and cardiac arrest. Looks normal today on telemetry. EKG q.a.m. Continue Eliquis. Discharge after 3 days of observation on sotalol, Wednesday. (2) Acute diastolic CHF (congestive heart failure): Code(s): I50.31 - Acute diastolic (congestive) heart failure Status: Acute Assessment and Plan: Hiral, improving. (3) Medication management: Code(s): Z79.899 - Other [facility] (current) drug therapy Status: Acute Assessment and Plan: Followed QT interval on sotalol with daily EKGs. (4) COPD exacerbation: Code(s): J44.1 - Chronic obstructive pulmonary disease with (acute) exacerbation Status: Acute Assessment and Plan: Treatment per hospitalist. Improving. Subjective Date/time seen: 12/28/20 18:17 Interval history: Follow-up of PAF and mild acute diastolic CHF with small effusions and elevated BNP. Started on sotalo 12/27/2019 pml. Admitted with exacerbation of COPD. Followed by Dr. Gomez for PAF, on Eliquis. Echo in April showed normal LV function. Date of service 12/28/2020: Patient is feeling better, less short of breath, left coughing. Telemetry shows the patient has paroxysmal atrial fibrillation although the heart rate is reasonably controlled 90-110 bpm, in NSR at the moment. Review of Systems Constitutional: Constitutional: Reports fatigue ENT: Denies epistaxis Cardiovascular: Cardiovascular: Denies chest pain, Denies pedal edema, Denies leg edema and Denies palpitations Respiratory: Respiratory: Reports cough, Denies hemoptysis, Reports dyspnea and Reports dyspnea on exertion Gastrointestinal: Gastrointestinal: Denies abdominal pain Genitourinary: Genitourinary: Denies hematuria Musculoskeletal: Musculoskeletal: Denies back pain and Denies arthralgias Integumentary/Breasts: Skin/Breast: Denies rash Neurologic: Denies confusion Psychiatric: Psychiatric: Denies behavioral changes Exam Narrative: Exam Narrative: Very pleasant older Const: General: comfortable and no acute distress HENMT: General nose exam: no epistaxis Eyes: EOM: EOMs intact bilaterally Neck: Neck: supple Resp: Effort & Inspection: normal respiratory effort Auscultation: wheezes (Scattered wheezes) and diminished lung sounds Cardio: Rate: regular rate Rhythm: regular rhythm Heart sounds: no murmurs Other: Barely audible heart sounds GI: GI Palp: Yes Soft to palpation and No Firmness to palpation present (GI) Skin: General skin exam: no rashes or lesions noted Neuro: Cognition (Neuro): normal cognition Speech: normal speech Extrem: General: edema (Trace pretibial edema) Psych: Affect: normal affect Objective Data Vital Signs Vital Signs: Vital Signs - 24 hr 12/27/20 20:00 12/27/20 20:49 12/27/20 20:50 Temperature 97.8 F Pulse Rate 86 96 Respiratory Rate 18 20 Blood Pressure 148/81 H Pulse Oximetry 95 96 12/27/20 21:05 12/27/20 21:36 12/27/20 22:00 Temperature Pulse Rate 93 98 98 Respiratory Rate 20 Blood Pressure Pulse Oximetry 12/28/20 00:00 12/28/20 02:0
[2020-12-28 19:10] LABS: SARS-CoV-2 RNA PCR Negative
[2020-12-28] MEDS: ALPRAZolam (*CRX) 0.5 MG TABLET PO (20:40)
[2020-12-28] MEDS: SIMVASTATIN 20 MG TABLET PO (20:40)
[2020-12-29] VITALS (24 sets, daily range): BP systolic 117–162; BP diastolic 69–98; PULSE 68–120; RESP 16–20; TEMP 36.3–36.8; O2SAT 93–100
[2020-12-29] MEDS: IPRATROPIUM BR 0.02% INH SOLN 0.5 MG/2.5 ML VIAL INHALATION ×4 (02:52→19:58)
[2020-12-29] MEDS: LEVOTHYROXINE SODIUM 88 MCG TABLET PO (04:30)
[2020-12-29] MEDS: ACETAMINOPHEN 325 MG TABLET 650 MG PO ×2 (04:30→20:54)
[2020-12-29 05:42] LABS: Hematocrit 32.7 % (37.0-47.0); Hemoglobin 10.9 g/dL (12.0-15.0); Mean Corpuscular HGB Conc 33.3 g/dl (32-36); Mean Corpuscular Hemoglobin 32.5 pg (26-34); Mean Corpuscular Volume 97.6 fl (80-100); Mean Platelet Volume 8.2 fl (7.4-10.4); Platelet Count Result 273 k/mm3 (150-375); Red Blood Count 3.35 M/mm3 (4.2-5.4); Red Cell Distribution Width 12.7 % (11.5-14.5); White Blood Count 7.6 K/mm3 (4.5-10.0)
[2020-12-29 05:58] LABS: Anion Gap 6 mmol/L (8-16); Blood Urea Nitrogen 21 mg/dL (7-17); Calcium 8.9 mg/dL (8.4-10.2); Carbon Dioxide 30 mmol/L (22-30); Chloride 91 mmol/L (98-107); Estimated CRCL calculation 43 ml/min; Estimated Glomerular Filt Rate > 60; Glucose 98 mg/dL (65-105); Potassium 3.6 mmol/L (3.4-5.0); Sodium 127 mmol/L (137-145)
--- NOTE | 2020-12-29 07:00 | ECG_ITS ---
Measurements Intervals [place] Rate: 129 P: MN: 0 QRS: -53 QRSD: 89 T: 60 QT: 247 QTc: 362 Interpretive Statements ATRIAL FIBRILLATION WITH RAPID VENTRICULAR RESPONSE INCOMPLETE RIGHT BUNDLE BRANCH BLOCK LOW QRS VOLTAGE IN LIMB LEADS LEFT ANTERIOR FASCICULAR BLOCK NONSPECIFIC ST & T-WAVE ABNORMALITY- DIFFUSE LEADS ABNORMAL ECG Electronically Signed On 12-29-2020 7:45:42 QUALITY SPECIALIST by Slick Romero D.O.
--- NOTE | 2020-12-29 07:53 | PCOTNOTE ---
The OT treatment was unable to be completed on 12/28/20. Will continue plan of care as appropriate.
[2020-12-29] MEDS: predniSONE 20 MG TABLET PO (08:45)
[2020-12-29] MEDS: APIXABAN 5 MG TABLET PO ×2 (08:46→20:53)
[2020-12-29] MEDS: acetaZOLAMIDE TAB 250 MG TABLET PO ×2 (08:46→16:53)
[2020-12-29] MEDS: SOTALOL HCL 80 MG TABLET PO ×3 (08:47→20:54)
[2020-12-29] MEDS: BUDESONIDE RESPULE NEB 0.5 MG/2 ML AMP 1 MG INHALATION ×2 (09:42→19:58)
--- NOTE | 2020-12-29 11:03 | PM.IMPN ---
Progress Note: A&P Assessment and Plan (1) Atrial fibrillation with rapid ventricular response: Code(s): I48.91 - Unspecified atrial fibrillation Status: Acute (2) Acute exacerbation of CHF (congestive heart failure): Qualifiers: Heart failure type: right-sided Qualified Code(s): I50.813 - Acute on chronic right heart failure Code(s): I50.9 - Heart failure, unspecified Status: Acute Assessment and Plan: 12/29/20 11:03 Patient is 85-year-old female presented emergency department with a complaint of shortness of breath and with history of proximal atrial fibrillation went into RVR most likely multifactorial due to congestive heart failure as patient has elevated BNP of 2500 as well as long history of smoking and emphysema and has COPD, patient was started on diltiazem drip from emergency depart and continue metoprolol, patient was seen by solar panel technician patient's rate is not controlled with diltiazem and metoprolol, cardiology is recommending to start the patient on sotalol 80 mg every q12hr, patient was seen by oil well shooter started the patient Pulmicort, ipratropium 0.5mg q.6, prednisone 20 mg q.day for 5, doxycycline 100 mg b.i.d. for 7, sputum culture and test for COVID-19, will continue to monitor the patient, spoke with the patient's daughter and answered all her questions, will have a PT OT evaluate the patient and further recommendation to follow. 12/28 patient is currently in isolation COVID is pending, patient states was able to sleep much better last night, patient on treated with sotalol 80 mg b.i.d. patient denies any chest pain or palpitation, patient's heart rate is controlled, patient does complain once she has coughing fit she becomes short of breath, patient seen by pulmonology being treated with pulmicort, prednisone, ipratropium and doxycycline, will continue to monitor. 12/29Patient COVID test is negative, and still complains of dry cough but denies shortness of breath, patient is treated with prednisone, doxycycline, Pulmicort, ipratropium and doxycycline patient seen by oil well shooter further recommendation to follow, denies chest pain palpitation fever or chills, patient with atrial fibrillation with RVR being treated with sotalol heart rate remains high patient will be seen by solar panel technician and further recommendation to follow, (3) Hyponatremia: Code(s): E87.1 - Hypo-osmolality and hyponatremia Status: Acute Assessment and Plan: Patient with mild hyponatremia chronic clinically stable will monitor (4) Chronic respiratory failure with hypoxia, on home O2 therapy: Code(s): J96.11 - Chronic respiratory failure with hypoxia; Z99.81 - Dependence on supplemental oxygen Status: Inactive Assessment and Plan: Most likely multifactorial secondary to CHF and COPD plan is above (5) Chronic obstructive pulmonary disease, unspecified: Qualifiers: COPD type: unspecified COPD Qualified Code(s): J44.9 - Chronic obstructive pulmonary disease, unspecified Code(s): J44.9 - Chronic obstructive pulmonary disease, unspecified Status: Chronic Assessment and Plan: Patient seen by oil well shooter plan is above Subjective Date/time seen: 12/29/20 11:03 Patient is 85-year-old female presented emergency department with a complaint of shortness of breath and with history of proximal atrial fibrillation went into RVR most likely multifactorial due to congestive heart failure as patient has elevated BNP of 2500 as well as long history of smoking and emphysema and has COPD, patient was started on diltiazem drip from emergency depart and continue metoprolol, patient was seen by solar panel technician patient's rate is not controlled with diltiazem and metoprolol, cardiology is recommending to start the patient on sotalol 80 mg every q12hr, patient was seen by oil well shooter started the patient Pulmicort, ipratropium 0.5mg q.6, prednisone 20 mg q.day for 5, doxycycline 1
[2020-12-29] MEDS: POTASSIUM CHLORIDE 20 MEQ TABLET 40 MEQ PO (12:48)
--- NOTE | 2020-12-29 13:34 | PM.PNCARD ---
Progress Note: A&P Assessment and Plan (1) Atrial fibrillation with rapid ventricular response: Code(s): I48.91 - Unspecified atrial fibrillation Status: Acute Assessment and Plan: Patient with paroxysmal AFib, admitted with RVR. Sotalol initiated on 12/27/2020. Looks like she is in and out of sinus rhythm/AFib, and heart rate is better controlled. QT interval will need to be checked periodically to avoid proarrhythmic affects such as torsade V-tach and cardiac arrest. Today's EKG personally reviewed; a fib, QTc 362 msec. She does tend to have some lateral ST depression when in RVR. Extra sotalol X 1 today. Continue Eliquis. Discharge after 3 days of observation on sotalol, Wednesday. Pt indicates that she may not feel well enough for discharge to rehab tmr. (2) Acute diastolic CHF (congestive heart failure): Code(s): I50.31 - Acute diastolic (congestive) heart failure Status: Acute Assessment and Plan: Diuresing, improving. (3) Medication management: Code(s): Z79.899 - Other snf (current) drug therapy Status: Acute Assessment and Plan: Followed QT interval on sotalol with daily EKGs. (4) COPD exacerbation: Code(s): J44.1 - Chronic obstructive pulmonary disease with (acute) exacerbation Status: Acute Assessment and Plan: Treatment per hospitalist. Improving. (5) Frailty: Code(s): R54 - Age-related physical debility Status: Acute Assessment and Plan: Pt feels weak and tired, not sleeping well, wonders if she has strength to go on. OK to skip VS if pt asleep 11 pm to 6 am. (Cont Telemetry), change time of a.m. labs, try to give her some uninterrupted sleep. I don't know the pt very well but provided encouragement. Hopefully w/ a little sleep and Rehab she will feel better. Subjective Date/time seen: 12/29/20 13:34 Interval history: Follow-up of PAF and mild acute diastolic CHF with small effusions and elevated BNP. Started on sotalol 12/27/2019 p.m. Admitted with exacerbation of COPD. Followed by Dr. Gomez for PAF, on Eliquis. Echo in April showed normal LV function. 12/28/2020: Patient is feeling better, less short of breath, left coughing. Telemetry shows the patient has paroxysmal atrial fibrillation although the heart rate is reasonably controlled 90-110 bpm, in NSR at the moment. Date of service 12/29/2020: I'm just so tired! Patient is discouraged, feels very tired, says she is not sleeping well at night, possibly due to interruptions and also to to her cough. Still somewhat short of breath, not dizzy, wears out extremely easily, weak. Poor appetite. Daughter is concerned about ?Where were going from here?? Was even wondering of hospice was appropriate at this point. Tele shows pt in and out of a fib. HR 115-125 when in a fib. Has been back in a fib for a few hours this a.m., HR 117. Review of Systems Constitutional: Constitutional: Reports fatigue, Reports lethargy and Reports weakness Eyes: Eyes: Reports no additional eye complaints ENT: Denies epistaxis Cardiovascular: Cardiovascular: Denies chest pain, Denies pedal edema, Denies leg edema, Denies lightheadedness and Denies palpitations Respiratory: Respiratory: Reports chest congestion, Reports cough, Reports dyspnea, Reports dyspnea on exertion and Reports wheezing Gastrointestinal: Gastrointestinal: Denies abdominal pain Genitourinary: Genitourinary: Denies hematuria Musculoskeletal: Musculoskeletal: Reports no additional musculoskel
--- NOTE | 2020-12-29 16:36 | PM.PNPUL ---
Progress Note: A&P Assessment and Plan (1) Acute exacerbation of CHF (congestive heart failure): Qualifiers: Heart failure type: right-sided Qualified Code(s): I50.813 - Acute on chronic right heart failure Code(s): I50.9 - Heart failure, unspecified Status: Acute (2) COPD exacerbation: Code(s): J44.1 - Chronic obstructive pulmonary disease with (acute) exacerbation Status: Acute Assessment and Plan: Continue ceftriaxone 1 g daily for 7 days Continue azithromycin 500 mg daily for 7 days Continue prednisone 20 mg daily for a total of 5 days Continue ipratropium 0.5 mg q.6 hours Continue Pulmicort 0.5 mg q.12 hours. PTOT and mobilization is encouraged. (3) Atrial fibrillation with rapid ventricular response: Code(s): I48.91 - Unspecified atrial fibrillation Status: Acute Assessment and Plan: Back in sinus rhythm. Subjective Date/time seen: 12/29/20 16:36 Interval history: She is feeling better today but is feeling sleepy and tired because of no sleeping at night. Review of Systems Review of Systems: All systems reviewed & are unremarkable except as noted in HPI and below Exam Const: General: cooperative and healthy appearing Nutritional Appearance: average body habitus and well nourished Orientation/consciousness: oriented to person, oriented to place, oriented to time and patient oriented x3 HENMT: Head: normal to inspection, normocephalic and atraumatic Eyes: General: appearance normal, both eyes and all related structures Neck: Neck: normal visual inspection, trachea midline and supple Resp: Effort & Inspection: Actively coughing and labored Auscultation: wheezes and diminished lung sounds Cardio: Jugular venous distension: JVD Rhythm: abnormal rhythm Heart sounds: S1 normal heart sound present and S2 normal heart sound present GI: Inspection: normal to inspection Auscultation: normal bowel sounds Skin: General skin exam: no rashes or lesions noted Neuro: General: oriented to person, oriented to place, oriented to time and patient oriented x3 Cognition (Neuro): normal cognition Speech: normal speech Extrem: General: normal exam except as noted Psych: Appearance: grossly normal and well kempt Mental Status: mental status grossly normal Objective Data Vital Signs Vital Signs: Vital Signs - 24 hr 12/28/20 18:00 12/28/20 20:00 12/28/20 20:40 Temperature 36.3 C L Pulse Rate 68 88 87 Respiratory Rate 16 Blood Pressure 159/91 H Pulse Oximetry 95 12/28/20 21:43 12/28/20 21:48 12/28/20 21:51 Temperature Pulse Rate 83 73 73 Respiratory Rate 20 Blood Pressure Pulse Oximetry 96 12/28/20 22:01 12/28/20 23:39 12/29/20 00:00 Temperature 36.4 C Pulse Rate 69 83 83 Respiratory Rate 20 18 18 Blood Pressure 177/79 H Pulse Oximetry 98 98 12/29/20 02:00 12/29/20 02:53 12/29/20 03:05 Temperature Pulse Rate 82 69 77 Respiratory Rate 20 20 Blood Pressure Pulse Oximetry 12/29/20 04:00 12/29/20 06:00 12/29/20 08:00 Temperature 36.3 C L 36.6 C Pulse Rate 68 79 114 H Respiratory Rate 16 20 Blood Pressure 157/76 H 117/69 Pulse Oximetry 93 99 12/29/20 08:47 12/29/20 09:43 12/29/20 09:55 Temperature Pulse Rate 120 H 120 H 118 H Respiratory Rate 20 20 Blood Pressure Pulse Oximetry 99 12/29/20 10:00 12/29/20 12:00 12/29/20 14:00 Temperature 36.8 C Pulse Rate 118 H 114 H 118 H Respiratory Rate 16 Blood Pressure 139/98 H Pulse Oximetry 98 12/29/20 15:05 Temperature Pulse Rate 117 H Respiratory Rate Blood Pressure Pulse Oximetry Intake/Output Intake/Output: Intake & Output 12/26/20 12/27/20 12/28/20 12/29/20 23:59 23:59 23:59 23:59 Intake Total 1090 885 580 Output Total 300 Balance 790 885 580 Meds/Results Medications: Active Medications Generic Name Dose Route Start Last Admin Trade Name Freq PRN Reason Stop Dose A
[2020-12-29] MEDS: SIMVASTATIN 20 MG TABLET PO (20:53)
[2020-12-29] MEDS: ALPRAZolam (*CRX) 0.5 MG TABLET PO (20:54)
[2020-12-30] VITALS (26 sets, daily range): BP systolic 109–140; BP diastolic 79–99; PULSE 99–156; RESP 16–20; TEMP 35.8–36.6; O2SAT 88–100
--- NOTE | 2020-12-30 03:05 | PC.NURSE ---
patient has gone back into afib with rvr. dr martin has been contacted. awaiting call back for further instructions.
[2020-12-30] MEDS: METOPROLOL TARTRATE INJ 5 MG/5 ML VIAL IV PUSH ×2 (03:25→11:42)
[2020-12-30] MEDS: LEVOTHYROXINE SODIUM 88 MCG TABLET PO (06:42)
--- NOTE | 2020-12-30 08:00 | ECG_ITS ---
Measurements Intervals [place] Rate: 127 P: [place]: 0 QRS: 9 QRSD: 77 T: 35 QT: 322 QTc: 469 Interpretive Statements ATRIAL FLUTTER/TACHYCARDIA WITH RAPID VENTRICULAR RESPONSE BORDERLINE R WAVE PROGRESSION, ANTERIOR LEADS BASELINE ARTIFACT- I, II, III, V1, V3 ABNORMAL ECG Electronically Signed On 12-30-2020 10:22:36 CULTURAL CENTRE MANAGER by Slick Romero D.O.
[2020-12-30] MEDS: BUDESONIDE RESPULE NEB 0.5 MG/2 ML AMP 1 MG INHALATION ×2 (09:00→20:39)
[2020-12-30] MEDS: IPRATROPIUM BR 0.02% INH SOLN 0.5 MG/2.5 ML VIAL INHALATION ×3 (09:01→20:38)
[2020-12-30 09:02] LABS: Anion Gap 6 mmol/L (8-16); Blood Urea Nitrogen 18 mg/dL (7-17); Calcium 8.7 mg/dL (8.4-10.2); Carbon Dioxide 25 mmol/L (22-30); Chloride 95 mmol/L (98-107); Estimated CRCL calculation 43 ml/min; Estimated Glomerular Filt Rate > 60; Glucose 79 mg/dL (65-105); Potassium 3.5 mmol/L (3.4-5.0); Sodium 126 mmol/L (137-145)
[2020-12-30] MEDS: MAGNESIUM OXIDE 400 MG TABLET PO (10:02)
[2020-12-30] MEDS: APIXABAN 5 MG TABLET PO ×2 (10:02→21:29)
[2020-12-30] MEDS: predniSONE 20 MG TABLET PO (10:02)
[2020-12-30] MEDS: POTASSIUM CHLORIDE 20 MEQ TABLET 40 MEQ PO (10:02)
[2020-12-30] MEDS: SOTALOL HCL 80 MG TABLET PO ×2 (10:02→21:30)
--- NOTE | 2020-12-30 11:00 | PM.PNCARD ---
Progress Note: A&P Assessment and Plan (1) Atrial fibrillation with rapid ventricular response: Code(s): I48.91 - Unspecified atrial fibrillation Status: Acute Assessment and Plan: Patient with ongoing paroxysmal AFib with RVR despite initiation of Sotalol on 12/27/2020. Increased to 120 mg twice daily. Patient received an additional 80 mg yesterday afternoon. Given this additional load she will have received 80 mg x3 within the past 18 hours, concern for proarrhythmic risks. Discussed with patient and daughter. All questions answered to their satisfaction. Therefore, will give IV metoprolol 5 mg IV x1 given RVR with AFib at present. If sotalol ineffective would require washout prior to initiation of alternative antiarrhythmic. Amiodarone problematic given underlying lung disease. QT interval will need to be checked periodically to avoid proarrhythmic affects such as torsade V-tach and cardiac arrest. QT interval difficult to measure given AFib RVR this morning check calculated at 469 milliseconds although I suspect QT interval is actually shorter. Repeat 12 lead EKG if in sinus rhythm and or in a.m.. Continue Eliquis. Patient currently in AFib with RVR. Will need better heart rate control prior to discharge. Monitor tolerance. Give potassium chloride 20 mEq p.o. x1, potassium lower limit normal. Check magnesium level. Magnesium supplementation started but no level obtained today. Will be more aggressive given suspect nonsustained VT versus aberrant conduction. (2) NSVT (nonsustained ventricular tachycardia): Code(s): I47.2 - Ventricular tachycardia Status: Acute (3) Acute diastolic CHF (congestive heart failure): Code(s): I50.31 - Acute diastolic (congestive) heart failure Status: Acute Assessment and Plan: Dichristinaing, improving. (4) COPD exacerbation: Code(s): J44.1 - Chronic obstructive pulmonary disease with (acute) exacerbation Status: Acute Assessment and Plan: Treatment per hospitalist. Improving. (5) Medication management: Code(s): Z79.899 - Other chcf (current) drug therapy Status: Acute Assessment and Plan: Followed QT interval on sotalol with daily EKGs. (6) Frailty: Code(s): R54 - Age-related physical debility Status: Acute Assessment and Plan: Per primary service. PT OT. Subjective Date/time seen: Date of service: 12/30/20 11:00 Interval history: Follow-up of PAF and mild acute diastolic CHF with small effusions and elevated BNP. Started on sotalol 12/27/2019 p.m. Admitted with exacerbation of COPD. Followed by Dr. Gomez for PAF, on Eliquis. Echo in April showed normal LV function. 12/28/2020: Patient is feeling better, less short of breath, left coughing. Telemetry shows the patient has paroxysmal atrial fibrillation although the heart rate is reasonably controlled 90-110 bpm, in NSR at the moment. 12/29/2020: I'm just so tired! Patient is discouraged, feels very tired, says she is not sleeping well at night, possibly due to interruptions and also to to her cough. Still somewhat short of breath, not dizzy, wears out extremely easily, weak. Poor appetite. Daughter is concerned about ?Where were going from here?? Was even wondering of hospice was appropriate at this point. Tele shows pt in and out of a fib. HR 115-125 when in a fib. Has been back in a fib for a few hours this a.m., HR 117. 12/30/2020: Feels tired, slept better last night. Paroxysmal AFib with RVR intermittently. Sinus rhythm early this morning now AFib RVR. 3-6 beat episodes of wide complex tachycardia nonsustained VT most likely, asy
--- NOTE | 2020-12-30 11:35 | PM.PNPUL ---
Progress Note: A&P Assessment and Plan (1) Acute exacerbation of CHF (congestive heart failure): Qualifiers: Heart failure type: right-sided Qualified Code(s): I50.813 - Acute on chronic right heart failure Code(s): I50.9 - Heart failure, unspecified Status: Acute (2) COPD exacerbation: Code(s): J44.1 - Chronic obstructive pulmonary disease with (acute) exacerbation Status: Acute Assessment and Plan: patient treated for COPD exacerbation, pneumonia and fluid overload. Overall she is improved. Continue ceftriaxone 1 g daily for 7 days Continue azithromycin 500 mg daily for 5 days Continue prednisone 20 mg daily for a total of 5 days Continue ipratropium 0.5 mg q.6 hours, ho albuterol now as AFIB with RVR (managed by cardiology) Continue Pulmicort 0.5 mg q.12 hours. PT/OT and mobilization is encouraged. Will follow with you. (3) Atrial fibrillation with rapid ventricular response: Code(s): I48.91 - Unspecified atrial fibrillation Status: Acute Assessment and Plan: Diuresis and rate control per hospitalist and cardiology. Subjective Date/time seen: 12/30/20 11:35 Interval history: Admitted with SOB on 12/27 and treated for fluid overload and COPD exacerbation. SARS negative 12/27. 12/28 She feels somewhat better today but still feels significantly short of breath with coughing. 12/29 She is feeling better today but is feeling sleepy and tired because of no sleeping at night. 12/30 Continues to improve, on 2 L NC oxygen with saturation 97-98% (wears 2 l at home). Slept better, dry cough that is better, decreased phlegm production since admission. SOB is better. No wheezes. States she is weak and about 50% back to her baseline. At baseline she can walk 30 feet and then stops for NOBLE. Review of Systems Review of Systems: All systems reviewed & are unremarkable except as noted in HPI and below Eyes: Eyes: Reports no additional eye complaints ENT: Reports system reviewed and no additional complaints, except as documented and Reports sinus pressure Cardiovascular: Cardiovascular: Reports no additional cardiovascular complaints Respiratory: Respiratory: Denies change in phlegm color, Reports cough, Denies hemoptysis, Denies excessive phlegm production, Denies pain on inspiration, Denies pain with cough and Reports dyspnea Gastrointestinal: Gastrointestinal: Reports no additional gastrointestinal complaints Musculoskeletal: Musculoskeletal: Reports no additional musculoskeletal complaints Integumentary/Breasts: Skin/Breast: Reports system reviewed and no additional complaints, except as docu Neurologic: Reports system reviewed and no additional complaints, except as documented and Reports behavioral changes Psychiatric: Psychiatric: Reports no additional psychiatric complaints and Reports behavioral changes Endocrine: Endocrine: Reports no additional endocrine complaints Exam Const: General: cooperative and healthy appearing Orientation/consciousness: oriented to person, oriented to place and oriented to time HENMT: Head: normal to inspection Ears: hearing grossly normal bilaterally Mouth: Yes Normal oral and palatal mucosa present Eyes: General: appearance normal, both eyes and all related structures Neck: Neck: normal visual inspection Chest: Chest palpation & inspection: normal inspection of the chest Resp: Effort & Inspection: normal respiratory effort and able to speak in complete sentences Auscultation: no crackles, no rales, no rhonchi and no wheezes Cardio: Jugular venous distension: no JVD GI: Inspection: normal to inspection Skin: General skin exam: normal color Neuro: General: oriented to person, oriented to place and oriented to time Extrem: General: normal to inspection and edema Psych: Appearance: grossly normal Objective Data Vital Signs Vital Signs: Vital Signs - 24 hr 12/29/20 12:00 12/29/20 14:00 12/29/20 15:0
[2020-12-30] MEDS: POTASSIUM CHLORIDE 20 MEQ PACKET (FOR LIQUID) PO (11:41)
[2020-12-30] MEDS: polyethylene glycoL 3350 17 GM POWD.PACK PO (11:41)
[2020-12-30 11:42] LABS: Magnesium 1.8 mg/dL (1.6-2.3)
[2020-12-30] MEDS: DOCUSATE SODIUM 100 MG CAPSULE PO (11:42)
--- NOTE | 2020-12-30 11:45 | PCOTNOTE ---
Attempted to see Patient at this time. Patient declined at this time due to just returning to bed, RN present giving medications. Patient and her daughter recommended I come back at a later time this afternoon. Will attempt again this afternoon.
--- NOTE | 2020-12-30 16:38 | PM.IMPN ---
Progress Note: A&P Assessment and Plan (1) Atrial fibrillation with rapid ventricular response: Code(s): I48.91 - Unspecified atrial fibrillation Status: Acute (2) Acute exacerbation of CHF (congestive heart failure): Qualifiers: Heart failure type: right-sided Qualified Code(s): I50.813 - Acute on chronic right heart failure Code(s): I50.9 - Heart failure, unspecified Status: Acute Assessment and Plan: 12/30/20 16:38 Patient is 85-year-old female presented emergency department with a complaint of shortness of breath and with history of proximal atrial fibrillation went into RVR most likely multifactorial due to congestive heart failure as patient has elevated BNP of 2500 as well as long history of smoking and emphysema and has COPD, patient was started on diltiazem drip from emergency depart and continue metoprolol, patient was seen by metal pourer patient's rate is not controlled with diltiazem and metoprolol, cardiology is recommending to start the patient on sotalol 80 mg every q12hr, patient was seen by jig borer started the patient Pulmicort, ipratropium 0.5mg q.6, prednisone 20 mg q.day for 5, doxycycline 100 mg b.i.d. for 7, sputum culture and test for COVID-19, will continue to monitor the patient, spoke with the patient's daughter and answered all her questions, will have a PT OT evaluate the patient and further recommendation to follow. 12/28 patient is currently in isolation COVID is pending, patient states was able to sleep much better last night, patient on treated with sotalol 80 mg b.i.d. patient denies any chest pain or palpitation, patient's heart rate is controlled, patient does complain once she has coughing fit she becomes short of breath, patient seen by pulmonology being treated with pulmicort, prednisone, ipratropium and doxycycline, will continue to monitor. 12/29Patient COVID test is negative, and still complains of dry cough but denies shortness of breath, patient is treated with prednisone, doxycycline, Pulmicort, ipratropium and doxycycline patient seen by jig borer further recommendation to follow, denies chest pain palpitation fever or chills, patient with atrial fibrillation with RVR being treated with sotalol heart rate remains high patient will be seen by metal pourer and further recommendation to follow. 12/30, on 12/29 patient heart rate remained in 120s patient was seen by Cardiology and give x-ray does sotalol 80 mg x1, therefore patient is seen 3 does an 18 hour, patient remains clinically stable, will closely monitor electrolyte potassium and magnesium, patient denies any chest pain shortness of breath palpitation fever or chills, however see does complaint persistent dry cough, patient is seen by pulmonology recommended to continue present management, will continue to monitor the patient patient feels weak and tired not ready start rehab will continue to monitor, spoke with the patient's daughter and updated. (3) Hyponatremia: Code(s): E87.1 - Hypo-osmolality and hyponatremia Status: Acute Assessment and Plan: Patient with mild hyponatremia chronic clinically stable will monitor (4) Chronic respiratory failure with hypoxia, on home O2 therapy: Code(s): J96.11 - Chronic respiratory failure with hypoxia; Z99.81 - Dependence on supplemental oxygen Status: Inactive Assessment and Plan: Most likely multifactorial secondary to CHF and COPD plan is above (5) Chronic obstructive pulmonary disease, unspecified: Qualifiers: COPD type: unspecified COPD Qualified Code(s): J44.9 - Chronic obstructive pulmonary disease, unspecified Code(s): J44.9 - Chronic obstructive pulmonary disease, unspecified Status: Chronic Assessment and Plan: Patient seen by jig borer plan is above Subjective Date/time seen: 12/30/20 16:38 Patient is 85-year-old female presented emergency department with a complaint of shortness
[2020-12-30] MEDS: ACETAMINOPHEN 325 MG TABLET 650 MG PO (21:28)
[2020-12-30] MEDS: SIMVASTATIN 20 MG TABLET PO (21:29)
[2020-12-30] MEDS: SOTALOL HCL 40 MG TABLET PO (21:29)
[2020-12-30] MEDS: ALPRAZolam (*CRX) 0.5 MG TABLET PO (21:29)
[2020-12-31] VITALS (22 sets, daily range): BP systolic 110–155; BP diastolic 81–110; PULSE 115–139; RESP 14–24; TEMP 36.4–36.6; O2SAT 94–100
[2020-12-31] MEDS: LEVOTHYROXINE SODIUM 88 MCG TABLET PO (05:29)
[2020-12-31 05:42] LABS: Magnesium 1.7 mg/dL (1.6-2.3)
[2020-12-31 05:46] LABS: Anion Gap 6 mmol/L (8-16); Blood Urea Nitrogen 18 mg/dL (7-17); Calcium 8.6 mg/dL (8.4-10.2); Carbon Dioxide 25 mmol/L (22-30); Chloride 92 mmol/L (98-107); Estimated CRCL calculation 50 ml/min; Estimated Glomerular Filt Rate > 60; Glucose 106 mg/dL (65-105); Potassium 4.1 mmol/L (3.4-5.0); Sodium 123 mmol/L (137-145)
[2020-12-31] MEDS: IPRATROPIUM BR 0.02% INH SOLN 0.5 MG/2.5 ML VIAL INHALATION ×3 (08:09→20:42)
[2020-12-31] MEDS: BUDESONIDE RESPULE NEB 0.5 MG/2 ML AMP 1 MG INHALATION ×2 (08:09→20:41)
[2020-12-31] MEDS: SOTALOL HCL 40 MG TABLET PO ×2 (08:50→22:16)
[2020-12-31] MEDS: predniSONE 20 MG TABLET PO (08:50)
[2020-12-31] MEDS: SOTALOL HCL 80 MG TABLET PO ×2 (08:50→22:15)
[2020-12-31] MEDS: APIXABAN 5 MG TABLET PO ×2 (08:50→22:15)
[2020-12-31] MEDS: MAGNESIUM OXIDE 400 MG TABLET PO (08:51)
[2020-12-31] MEDS: DOCUSATE SODIUM 100 MG CAPSULE PO (08:55)
[2020-12-31] MEDS: dilTIAZem HCL 30 MG TABLET PO ×2 (09:36→16:43)
--- NOTE | 2020-12-31 10:35 | PM.PNPUL ---
Progress Note: A&P Assessment and Plan (1) COPD exacerbation: Code(s): J44.1 - Chronic obstructive pulmonary disease with (acute) exacerbation Status: Acute Assessment and Plan: patient treated for COPD exacerbation, pneumonia and fluid overload. 12/30 Overall she is improved. 12/31 Breathing back to baseline. While inn hospital Continue ceftriaxone 1 g daily for 7 days Continue azithromycin 500 mg daily for 5 days Continue prednisone 20 mg daily for a total of 5 days Continue ipratropium 0.5 mg q.6 hours, no albuterol now as AFIB with RVR (managed by cardiology) Continue Pulmicort 0.5 mg q.12 hours. PT/OT and mobilization is encouraged. Ready for discharge from pulmonary perspective on: Symbicort 160/4.5 2 puffs BID Spireva respimat 2.5 1 puff BID albuterol 2 puffs Q 4 PRN SOB Finish 7 days of antibiotics with levaquin 750 PO Q day. Oxygen per home O2 evaluation on day of discharge Will sign off, please call with any questions. (2) Atrial fibrillation with rapid ventricular response: Code(s): I48.91 - Unspecified atrial fibrillation Status: Acute Assessment and Plan: Diuresis and rate control per hospitalist and cardiology. Subjective Date/time seen: 12/31/20 10:35 Interval history: Admitted with SOB on 12/27 and treated for fluid overload and COPD exacerbation. SARS negative 12/27. 12/28 She feels somewhat better today but still feels significantly short of breath with coughing. 12/29 She is feeling better today but is feeling sleepy and tired because of no sleeping at night. 12/30 Continues to improve, on 2 L NC oxygen with saturation 97-98% (wears 2 l at home). Slept better, dry cough that is better, decreased phlegm production since admission. SOB is better. No wheezes. States she is weak and about 50% back to her baseline. At baseline she can walk 30 feet and then stops for NOBLE. 12/31 States breathing is back to baseline but she remains very weak and debillitated. Walked to chair and sat up 2.5 hours yestereday. On 2 L with saturations 96%. Review of Systems Review of Systems: All systems reviewed & are unremarkable except as noted in HPI and below Eyes: Eyes: Reports no additional eye complaints ENT: Reports system reviewed and no additional complaints, except as documented and Reports sinus pressure Cardiovascular: Cardiovascular: Reports no additional cardiovascular complaints and Reports dyspnea Respiratory: Respiratory: Denies change in phlegm color, Reports cough, Denies hemoptysis, Denies excessive phlegm production, Denies pain on inspiration, Denies pain with cough and Reports dyspnea Gastrointestinal: Gastrointestinal: Reports no additional gastrointestinal complaints Musculoskeletal: Musculoskeletal: Reports no additional musculoskeletal complaints Integumentary/Breasts: Skin/Breast: Reports system reviewed and no additional complaints, except as docu Neurologic: Reports system reviewed and no additional complaints, except as documented and Reports behavioral changes Psychiatric: Psychiatric: Reports no additional psychiatric complaints and Reports behavioral changes Endocrine: Endocrine: Reports no additional endocrine complaints Exam Const: General: cooperative and healthy appearing Orientation/consciousness: oriented to person, oriented to place and oriented to time HENMT: Head: normal to inspection Ears: hearing grossly normal bilaterally Mouth: Yes Normal oral and palatal mucosa present Eyes: General: appearance normal, both eyes and all related structures Neck: Neck: normal visual inspection Chest: Chest palpation & inspection: normal inspection of the chest Resp: Effort & Inspection: normal respiratory effort and able to speak in complete sentences Auscultation: no crackles, no rales, no rhonchi and no wheezes Cardio: Jugular venous distension: no JVD GI: Inspection: normal to inspection Skin: General skin exam: normal color Neuro: G
--- NOTE | 2020-12-31 12:45 | PM.PNCARD ---
Progress Note: A&P Assessment and Plan (1) Atrial flutter with rapid ventricular response: Code(s): I48.92 - Unspecified atrial flutter Status: Acute (2) Atrial fibrillation with rapid ventricular response: Code(s): I48.91 - Unspecified atrial fibrillation Status: Acute Assessment and Plan: Patient with ongoing paroxysmal AFib with RVR despite initiation of Sotalol on 12/27/2020. Increased to 120 mg twice daily. Patient received an additional 80 mg yesterday afternoon. Given this additional load she will have received 80 mg x3 within the past 18 hours, concern for proarrhythmic risks. Discussed with patient and daughter. All questions answered to their satisfaction. Therefore, will give IV metoprolol 5 mg IV x1 given RVR with AFib at present. If sotalol ineffective would require washout prior to initiation of alternative antiarrhythmic. Amiodarone problematic given underlying lung disease. Continue Eliquis. Patient converted atrial flutter with RVR at 120 beats per minute early this morning. Given sustained AFib in atrial flutter for past 24 hours despite addition of diltiazem this morning and increase in sotalol to 120 mg twice daily heart rate remains poorly controlled. Discussed with patient and her daughter at bedside at length regards to medical management options including amiodarone and or cardioversion. Explained even with cardioversion patient may revert back to atrial fibrillation and/or flutter. Discussed my concerns she may require discontinuation of sotalol with at least a 3 day washout in favor of amiodarone but this require prolonged hospitalization. Discussed cardioversion with Anesthesiology if Aflutter remains persistent. NPO after midnight. Expressed concerns regarding respiratory status given her lung disease, age and comorbidities, CVA and bleeding risk and particularly given antiarrhythmic therapy and CCB with risk of morales upon cardioversion. I verbalized understanding and agreed to proceed as above. Will schedule with Anesthesiology. Spent 38 minutes in the care of this patient and chart review. (3) NSVT (nonsustained ventricular tachycardia): Code(s): I47.2 - Ventricular tachycardia Status: Acute Assessment and Plan: Stable, no significant recurrence. Occasional PVCs noted on telemetry. (4) Acute diastolic CHF (congestive heart failure): Code(s): I50.31 - Acute diastolic (congestive) heart failure Status: Acute Assessment and Plan: Dichristinaing, improving. Stable in this regard. (5) COPD exacerbation: Code(s): J44.1 - Chronic obstructive pulmonary disease with (acute) exacerbation Status: Acute Assessment and Plan: Treatment per hospitalist. Improving. (6) Medication management: Code(s): Z79.899 - Other manager long term care (current) drug therapy Status: Acute Assessment and Plan: Followed QT interval on sotalol with daily EKGs. (7) Frailty: Code(s): R54 - Age-related physical debility Status: Acute Assessment and Plan: Per primary service. PT OT. Subjective Date/time seen: Date of service: 12/31/20 12:45 Interval history: Follow-up of PAF and mild acute diastolic CHF with small effusions and elevated BNP. Started on sotalol 12/27/2019 p.m. Admitted with exacerbation of COPD. Followed by Dr. Gomez for PAF, on Eliquis. Echo in April showed normal LV function. Patient remains tachycardic was in atrial fibrillation with RVR early this morning converted to probable atrial flutter with stable heart rate around 120 beats per minute. BP stable. No chest pain. No new shortness of breath. Intermittent cough
--- NOTE | 2020-12-31 12:46 | ECG_ITS ---
Measurements Intervals [place] Rate: 117 P: [place]: 0 QRS: -84 QRSD: 86 T: 13 QT: 311 QTc: 435 Interpretive Statements ATRIAL FLUTTER/TACHYCARDIA WITH RAPID VENTRICULAR RESPONSE LEFT ANTERIOR FASCICULAR BLOCK INFERIOR INFARCT, AGE INDETERMINATE BORDERLINE ST-T WAVE ABNORMALITY- ANTERIOR LEADS ABNORMAL ECG Electronically Signed On 12-31-2020 14:55:45 LIME MIXER TENDER by Slick Romero D.O.
--- NOTE | 2020-12-31 14:06 | PCPTNOTE ---
attempted PT treatment this afternoon, unable to treat her: pt was busy with OT treatment and then cardiac testing was with pt;
--- NOTE | 2020-12-31 16:40 | PM.IMPN ---
Progress Note: A&P Assessment and Plan (1) Atrial fibrillation with rapid ventricular response: Code(s): I48.91 - Unspecified atrial fibrillation Status: Acute (2) Acute exacerbation of CHF (congestive heart failure): Qualifiers: Heart failure type: right-sided Qualified Code(s): I50.813 - Acute on chronic right heart failure Code(s): I50.9 - Heart failure, unspecified Status: Acute Assessment and Plan: 12/31/20 16:40 Patient is 85-year-old female presented emergency department with a complaint of shortness of breath and with history of proximal atrial fibrillation went into RVR most likely multifactorial due to congestive heart failure as patient has elevated BNP of 2500 as well as long history of smoking and emphysema and has COPD, patient was started on diltiazem drip from emergency depart and continue metoprolol, patient was seen by plant operator patient's rate is not controlled with diltiazem and metoprolol, cardiology is recommending to start the patient on sotalol 80 mg every q12hr, patient was seen by swim coach started the patient Pulmicort, ipratropium 0.5mg q.6, prednisone 20 mg q.day for 5, doxycycline 100 mg b.i.d. for 7, sputum culture and test for COVID-19, will continue to monitor the patient, spoke with the patient's daughter and answered all her questions, will have a PT OT evaluate the patient and further recommendation to follow. 12/28 patient is currently in isolation COVID is pending, patient states was able to sleep much better last night, patient on treated with sotalol 80 mg b.i.d. patient denies any chest pain or palpitation, patient's heart rate is controlled, patient does complain once she has coughing fit she becomes short of breath, patient seen by pulmonology being treated with pulmicort, prednisone, ipratropium and doxycycline, will continue to monitor. 12/29Patient COVID test is negative, and still complains of dry cough but denies shortness of breath, patient is treated with prednisone, doxycycline, Pulmicort, ipratropium and doxycycline patient seen by swim coach further recommendation to follow, denies chest pain palpitation fever or chills, patient with atrial fibrillation with RVR being treated with sotalol heart rate remains high patient will be seen by plant operator and further recommendation to follow. 12/30, on 12/29 patient heart rate remained in 120s patient was seen by Cardiology and give x-ray does sotalol 80 mg x1, therefore patient is seen 3 does an 18 hour, patient remains clinically stable, will closely monitor electrolyte potassium and magnesium, patient denies any chest pain shortness of breath palpitation fever or chills, however see does complaint persistent dry cough, patient is seen by pulmonology recommended to continue present management, will continue to monitor the patient patient feels weak and tired not ready start rehab will continue to monitor, spoke with the patient's daughter and updated. 12/31 patient was seen by Cardiology had increased sotalol to 120 mg b.i.d. from 80 mg b.i.d. however patient remains atrial fibrillation with RVR and flutter today plant operator had a long discussion with the patient and her daughter recommended cardioversion and discussed all the risks involved, patient daughter has agreed with cardioversion which is scheduled for tomorrow will follow-up further recommendation to follow, patient breathing is somewhat better will continue to monitor (3) Hyponatremia: Code(s): E87.1 - Hypo-osmolality and hyponatremia Status: Acute Assessment and Plan: Patient with mild hyponatremia chronic clinically stable will monitor (4) Chronic respiratory failure with hypoxia, on home O2 therapy: Code(s): J96.11 - Chronic respiratory failure with hypoxia; Z99.81 - Dependence on supplemental oxygen Status: Inactive Assessment and Plan: Most likely multifactorial secondary to CHF and COPD plan is above (5) Chronic
[2020-12-31] MEDS: ALPRAZolam (*CRX) 0.5 MG TABLET PO (22:15)
[2020-12-31] MEDS: ACETAMINOPHEN 325 MG TABLET 650 MG PO (22:19)
[2021-01-01] VITALS (21 sets, daily range): BP systolic 106–143; BP diastolic 73–94; PULSE 74–132; RESP 18–22; TEMP 35.7–36.5; O2SAT 94–100
[2021-01-01] MEDS: dilTIAZem HCL 30 MG TABLET PO ×4 (00:04→23:27)
[2021-01-01 06:48] LABS: Anion Gap 9 mmol/L (8-16); Blood Urea Nitrogen 17 mg/dL (7-17); Calcium 9.1 mg/dL (8.4-10.2); Carbon Dioxide 25 mmol/L (22-30); Chloride 80 mmol/L (98-107); Estimated CRCL calculation 59 ml/min; Estimated Glomerular Filt Rate > 60; Glucose 108 mg/dL (65-105); Magnesium 1.6 mg/dL (1.6-2.3); Potassium 3.8 mmol/L (3.4-5.0); Sodium 114 mmol/L (137-145)
[2021-01-01] MEDS: BUDESONIDE RESPULE NEB 0.5 MG/2 ML AMP 1 MG INHALATION ×2 (08:27→20:23)
[2021-01-01] MEDS: IPRATROPIUM BR 0.02% INH SOLN 0.5 MG/2.5 ML VIAL INHALATION ×3 (08:27→20:23)
--- NOTE | 2021-01-01 08:46 | PM.PNCARD ---
Progress Note: A&P Assessment and Plan (1) Atrial flutter with rapid ventricular response: Code(s): I48.92 - Unspecified atrial flutter Status: Acute Assessment and Plan: Patient with ongoing paroxysmal AFib with RVR despite initiation of Sotalol on 12/27/2020. Increased to 120 mg twice daily. Patient received an additional 80 mg yesterday afternoon. Given this additional load she will have received 80 mg x3 within the past 18 hours, concern for proarrhythmic risks. Discussed with patient and daughter. All questions answered to their satisfaction. Therefore, will give IV metoprolol 5 mg IV x1 given RVR with AFib at present. If sotalol ineffective would require washout prior to initiation of alternative antiarrhythmic. Amiodarone problematic given underlying lung disease. Continue Eliquis. Hold off on cardioversion due to precipitous decline in sodium level. Risk for anesthesia further exacerbated in this circumstance until further clarification. Repeat BMP stat consistent at 115 and does not appear to be secondary to lab error. Discussed with the patient and her daughter who verbalized understanding and agreed with plan of care. If repeat attempt at cardioversion reasonable based on electrolytes will set up once again with Anesthesiology. We also discussed greater likelihood of maintaining sinus rhythm with cardioversion on sotalol now that she has completed loading doses. Spent 42 minutes in the care of this patient, family discussion with her daughter Oralia on the phone, and chart review. (2) Atrial fibrillation with rapid ventricular response: Code(s): I48.91 - Unspecified atrial fibrillation Status: Acute Assessment and Plan: As above. (3) NSVT (nonsustained ventricular tachycardia): Code(s): I47.2 - Ventricular tachycardia Status: Acute Assessment and Plan: She once again is having intermittent nonsustained VT generally 3-6 beats in duration. Asymptomatic. Continue to monitor. Doubt related to sotalol but will monitor. Discussed alternative antiarrhythmic if necessary. Given additional magnesium and potassium supplementation this morning. (4) Hyponatremia: Code(s): E87.1 - Hypo-osmolality and hyponatremia Status: Acute Assessment and Plan: Severe, acute decline within the past 24 hours. Cardioversion placed on hold as a result due to elevated risk. Nephrology consultation. She is off diuretics. (5) Acute diastolic CHF (congestive heart failure): Code(s): I50.31 - Acute diastolic (congestive) heart failure Status: Acute Assessment and Plan: Not currently receiving diuresis, fairly euvolemic at this time. Monitor volume status closely. (6) Medication management: Code(s): Z79.899 - Other regional intermodal truck driver (current) drug therapy Status: Acute Assessment and Plan: Followed QT interval on sotalol with daily EKGs. (7) COPD exacerbation: Code(s): J44.1 - Chronic obstructive pulmonary disease with (acute) exacerbation Status: Acute Assessment and Plan: Treatment per hospitalist. Improving. (8) Frailty: Code(s): R54 - Age-related physical debility Status: Acute Assessment and Plan: Per primary service. PT OT. Subjective Date/time seen: Date of service: 01/01/21 08:46 Interval history: Follow-up of PAF and mild acute diastolic CHF with small effusions and elevated BNP. Started on sotalol 12/27/2019 p.m. Admitted with exacerbation of COPD. Followed by Dr. Gomez for PAF, on Eliquis. Echo in April showed normal LV function. Patient remains tachycardic in atrial flutter with rapid ventricular
[2021-01-01 09:13] LABS: Anion Gap 6 mmol/L (8-16); Blood Urea Nitrogen 20 mg/dL (7-17); Carbon Dioxide 28 mmol/L (22-30); Chloride 81 mmol/L (98-107); Estimated CRCL calculation 50 ml/min; Estimated Glomerular Filt Rate > 60; Glucose 98 mg/dL (65-105); Potassium 3.8 mmol/L (3.4-5.0); Sodium 115 mmol/L (137-145)
[2021-01-01] MEDS: SOTALOL HCL 40 MG TABLET PO ×2 (09:38→20:09)
[2021-01-01] MEDS: LEVOTHYROXINE SODIUM 88 MCG TABLET PO (09:38)
[2021-01-01] MEDS: APIXABAN 5 MG TABLET PO ×2 (09:39→20:09)
[2021-01-01] MEDS: predniSONE 20 MG TABLET PO (09:40)
[2021-01-01] MEDS: MAGNESIUM OXIDE 400 MG TABLET PO (09:40)
[2021-01-01] MEDS: SOTALOL HCL 80 MG TABLET PO ×2 (09:50→20:09)
--- NOTE | 2021-01-01 10:52 | ECG_ITS ---
Measurements Intervals [place] Rate: 117 P: [place]: 0 QRS: -72 QRSD: 81 T: 47 QT: 346 QTc: 484 Interpretive Statements ATRIAL FLUTTER/TACHYCARDIA WITH RAPID VENTRICULAR RESPONSE LEFT AXIS DEVIATION BORDERLINE R WAVE PROGRESSION, ANTERIOR LEADS BORDERLINE T WAVE ABNORMALITY- ANTERIOR LEADS BASELINE ARTIFACT- III, AVR, AVL, AVF, V2 ABNORMAL ECG Electronically Signed On 01-01-2021 11:34:51 SENIOR MEDICAL DIRECTOR by Slick Romero D.O.
--- NOTE | 2021-01-01 11:30 | PCPTNOTE ---
PT treatment held today per RN. Will continue per Plan of Care frequency and duration.
[2021-01-01] MEDS: POTASSIUM CHLORIDE 20 MEQ TABLET PO (11:31)
[2021-01-01] MEDS: MAGNESIUM SULF 2 GM/WATER 50ML 2 GM/50 ML BAG IVPB (11:31)
--- NOTE | 2021-01-01 11:47 | PCOTNOTE ---
RN stated to hold treatment this date due to change in medical status and monitoring.
--- NOTE | 2021-01-01 16:00 | PM.CNNEP ---
Assessment and Plan Assessment and plan (1) Hyponatremia: Code(s): E87.1 - Hypo-osmolality and hyponatremia Status: Acute Assessment and Plan: acute decline noted in the last 24 hours etiology not clear but has multiple risk factors for it: - known COPD/lung disease make her more susceptible to this - IV medications using D5W carrier fluid - diuretic use - chronic hyponatremia at baseline during her April 2020 admission, this was felt to be due to use of HCTZ along with COPD exacerbation instituted on fluid restriction check TSH, cortisol, SPEP, UPEP, serum/urine osmolality may need to consider 3% saline but no acute indications as of yet goal of correction is 4 - 6mmol/L in a 24 hour period of time follow trend of repeat sodiums (2) Atrial fibrillation with RVR: Code(s): I48.91 - Unspecified atrial fibrillation Status: Acute Assessment and Plan: difficult to control as noted by interventions to date continue rate control strategy Cardiology following (3) Acute diastolic CHF (congestive heart failure): Code(s): I50.31 - Acute diastolic (congestive) heart failure Status: Acute Assessment and Plan: volume status better with IV diuresis diuretics on hold now due to #1 follow volume status (4) COPD (chronic obstructive pulmonary disease): Code(s): J44.9 - Chronic obstructive pulmonary disease, unspecified Status: Chronic Assessment and Plan: chronic issues continue supplemental oxygen and supportive therapy follow respiratory status (5) Essential (primary) hypertension: Code(s): I10 - Essential (primary) hypertension Status: Chronic Assessment and Plan: reasonable control at this time follow hemodynamics Discussed with nursing and son at bedside as well as patient. Will continue to follow. History of Present Illness Reason for Consult Consult date: 01/01/21 Reason for consult: hyponatremia Chief Complaint Chief complaint: Atrial fibrillation w/RVR, CHF History of Present Illness Narrative: The patient is an 85-year-old female with a past medical history as outlined below who presented to [facility] Emergency room via EMS with shortness of breath. The shortness of breath started about 7 days ago but has progressively worsened in that time frame. She does have known chronic obstructive pulmonary disease and requires 2 L of oxygen at night at baseline. However, with the issues relating to her shortness of breath, her primary care physician instructed the patient to use her oxygen 24 hours a day 7 days a week and was also instructed to use a rescue inhaler on top of her baseline medications. The rescue inhaler did seem to help to some degree but her breathing was still not improving significantly in the last week. The patient reported that she also had odd sensation her back which is somewhat consistent with her known history of atrial fibrillation. Nonetheless she did not actually complain of any type of palpitations. She also reports worsening shortness of breath with exertion associated with increased lower extremity edema as well. Given these symptoms and progression of them, she presented to the ER for further evaluation Workup and evaluation emergency room demonstrated the patient to be hemodynamically stable but in some mild distress secondary to her shortness of breath. It was noted that she was in atrial fibrillation with RVR by EKG and routine blood tests demonstrated labs consistent with her baseline values including her sodium level. Her chest x-ray was somewhat consistent with some evidence of CHF as well. Given the AFib with RVR as well as the evidence of CHF, she was started on medications to try to rate control her atrial fibrillation and IV diuretics for her volume overload. She was subsequent admitted the hospital for
[2021-01-01 16:53] LABS: Sodium 114 mmol/L (137-145)
--- NOTE | 2021-01-01 17:15 | PM.IMPN ---
Progress Note: A&P Assessment and Plan (1) Atrial fibrillation with rapid ventricular response: Code(s): I48.91 - Unspecified atrial fibrillation Status: Acute (2) Acute exacerbation of CHF (congestive heart failure): Qualifiers: Heart failure type: right-sided Qualified Code(s): I50.813 - Acute on chronic right heart failure Code(s): I50.9 - Heart failure, unspecified Status: Acute Assessment and Plan: 01/01/21 17:15 Patient is 85-year-old female presented emergency department with a complaint of shortness of breath and with history of proximal atrial fibrillation went into RVR most likely multifactorial due to congestive heart failure as patient has elevated BNP of 2500 as well as long history of smoking and emphysema and has COPD, patient was started on diltiazem drip from emergency depart and continue metoprolol, patient was seen by credit risk associate patient's rate is not controlled with diltiazem and metoprolol, cardiology is recommending to start the patient on sotalol 80 mg every q12hr, patient was seen by firebreak cutter started the patient Pulmicort, ipratropium 0.5mg q.6, prednisone 20 mg q.day for 5, doxycycline 100 mg b.i.d. for 7, sputum culture and test for COVID-19, will continue to monitor the patient, spoke with the patient's daughter and answered all her questions, will have a PT OT evaluate the patient and further recommendation to follow. 12/28 patient is currently in isolation COVID is pending, patient states was able to sleep much better last night, patient on treated with sotalol 80 mg b.i.d. patient denies any chest pain or palpitation, patient's heart rate is controlled, patient does complain once she has coughing fit she becomes short of breath, patient seen by pulmonology being treated with pulmicort, prednisone, ipratropium and doxycycline, will continue to monitor. 12/29Patient COVID test is negative, and still complains of dry cough but denies shortness of breath, patient is treated with prednisone, doxycycline, Pulmicort, ipratropium and doxycycline patient seen by firebreak cutter further recommendation to follow, denies chest pain palpitation fever or chills, patient with atrial fibrillation with RVR being treated with sotalol heart rate remains high patient will be seen by credit risk associate and further recommendation to follow. 12/30, on 12/29 patient heart rate remained in 120s patient was seen by Cardiology and give x-ray does sotalol 80 mg x1, therefore patient is seen 3 does an 18 hour, patient remains clinically stable, will closely monitor electrolyte potassium and magnesium, patient denies any chest pain shortness of breath palpitation fever or chills, however see does complaint persistent dry cough, patient is seen by pulmonology recommended to continue present management, will continue to monitor the patient patient feels weak and tired not ready start rehab will continue to monitor, spoke with the patient's daughter and updated. 12/31 patient was seen by Cardiology had increased sotalol to 120 mg b.i.d. from 80 mg b.i.d. however patient remains atrial fibrillation with RVR and flutter today credit risk associate had a long discussion with the patient and her daughter recommended cardioversion and discussed all the risks involved, patient daughter has agreed with cardioversion which is scheduled for tomorrow will follow-up further recommendation to follow, patient breathing is somewhat better will continue to monitor. 01/01 patient with atrial fibrillation with RVR being treated with sotalol 120 mg b.i.d. and the rate was not improving and plan was cardioverted today however today patient has hyponatremia etiology uncertain, nephrology is consulted and place the patient on free fluid restriction, patient complains of being more tired and fatigue, denies any chest palpitation fever or chills, will continue to monitor patient's sodium one stable patient will have cardioversion. (3) Hyponatremia: Code(s): E87
[2021-01-01] MEDS: ALPRAZolam (*CRX) 0.5 MG TABLET PO (20:09)
[2021-01-02] VITALS (13 sets, daily range): BP systolic 110–141; BP diastolic 52–93; PULSE 100–118; RESP 14–18; TEMP 36.4–36.6; O2SAT 94–99
[2021-01-02 05:53] LABS: Albumin Level 3.6 g/dL (3.5-5.1); Anion Gap 7 mmol/L (8-16); Blood Urea Nitrogen 24 mg/dL (7-17); Calcium 8.8 mg/dL (8.4-10.2); Carbon Dioxide 26 mmol/L (22-30); Chloride 81 mmol/L (98-107); Estimated CRCL calculation 43 ml/min; Estimated Glomerular Filt Rate > 60; Glucose 95 mg/dL (65-105); Magnesium 2.1 mg/dL (1.6-2.3); Phosphorus 3.4 mg/dL (2.5-4.5); Potassium 4.6 mmol/L (3.4-5.0); Sodium 114 mmol/L (137-145)
[2021-01-02] MEDS: LEVOTHYROXINE SODIUM 88 MCG TABLET PO (06:43)
[2021-01-02] MEDS: SOTALOL HCL 40 MG TABLET PO (08:10)
[2021-01-02] MEDS: MAGNESIUM OXIDE 400 MG TABLET PO (08:11)
[2021-01-02] MEDS: dilTIAZem HCL 30 MG TABLET PO (08:11)
[2021-01-02] MEDS: APIXABAN 5 MG TABLET PO (08:11)
[2021-01-02] MEDS: SOTALOL HCL 80 MG TABLET PO (08:11)
[2021-01-02] MEDS: BUDESONIDE RESPULE NEB 0.5 MG/2 ML AMP 1 MG INHALATION (08:55)
[2021-01-02] MEDS: IPRATROPIUM BR 0.02% INH SOLN 0.5 MG/2.5 ML VIAL INHALATION (08:55)
[2021-01-02 10:07] LABS: Sodium 115 mmol/L (137-145)
--- NOTE | 2021-01-02 11:18 | PM.IMPN ---
Progress Note: A&P Assessment and Plan (1) Atrial fibrillation with rapid ventricular response: Code(s): I48.91 - Unspecified atrial fibrillation Status: Acute (2) Acute exacerbation of CHF (congestive heart failure): Qualifiers: Heart failure type: right-sided Qualified Code(s): I50.813 - Acute on chronic right heart failure Code(s): I50.9 - Heart failure, unspecified Status: Acute Assessment and Plan: 01/02/21 11:18 Patient is 85-year-old female presented emergency department with a complaint of shortness of breath and with history of proximal atrial fibrillation went into RVR most likely multifactorial due to congestive heart failure as patient has elevated BNP of 2500 as well as long history of smoking and emphysema and has COPD, patient was started on diltiazem drip from emergency depart and continue metoprolol, patient was seen by watch inspector final movement patient's rate is not controlled with diltiazem and metoprolol, cardiology is recommending to start the patient on sotalol 80 mg every q12hr, patient was seen by chimney mechanic started the patient Pulmicort, ipratropium 0.5mg q.6, prednisone 20 mg q.day for 5, doxycycline 100 mg b.i.d. for 7, sputum culture and test for COVID-19, will continue to monitor the patient, spoke with the patient's daughter and answered all her questions, will have a PT OT evaluate the patient and further recommendation to follow. 12/28 patient is currently in isolation COVID is pending, patient states was able to sleep much better last night, patient on treated with sotalol 80 mg b.i.d. patient denies any chest pain or palpitation, patient's heart rate is controlled, patient does complain once she has coughing fit she becomes short of breath, patient seen by pulmonology being treated with pulmicort, prednisone, ipratropium and doxycycline, will continue to monitor. 12/29Patient COVID test is negative, and still complains of dry cough but denies shortness of breath, patient is treated with prednisone, doxycycline, Pulmicort, ipratropium and doxycycline patient seen by chimney mechanic further recommendation to follow, denies chest pain palpitation fever or chills, patient with atrial fibrillation with RVR being treated with sotalol heart rate remains high patient will be seen by watch inspector final movement and further recommendation to follow. 12/30, on 12/29 patient heart rate remained in 120s patient was seen by Cardiology and give x-ray does sotalol 80 mg x1, therefore patient is seen 3 does an 18 hour, patient remains clinically stable, will closely monitor electrolyte potassium and magnesium, patient denies any chest pain shortness of breath palpitation fever or chills, however see does complaint persistent dry cough, patient is seen by pulmonology recommended to continue present management, will continue to monitor the patient patient feels weak and tired not ready start rehab will continue to monitor, spoke with the patient's daughter and updated. 12/31 patient was seen by Cardiology had increased sotalol to 120 mg b.i.d. from 80 mg b.i.d. however patient remains atrial fibrillation with RVR and flutter today watch inspector final movement had a long discussion with the patient and her daughter recommended cardioversion and discussed all the risks involved, patient daughter has agreed with cardioversion which is scheduled for tomorrow will follow-up further recommendation to follow, patient breathing is somewhat better will continue to monitor. 01/01 patient with atrial fibrillation with RVR being treated with sotalol 120 mg b.i.d. and the rate was not improving and plan was cardioverted today however today patient has hyponatremia etiology uncertain, nephrology is consulted and place the patient on free fluid restriction, patient complains of being more tired and fatigue, denies any chest palpitation fever or chills, will continue to monitor patient's sodium one stable patient will have cardioversion. 01/02 patient with atrial fibrillation
[2021-01-02] MEDS: cefTRIAXone 1 GM in SODIUM CHLORIDE 0.9% IV 50 ML IVPB (11:46)
--- NOTE | 2021-01-02 12:39 | PM.PNNEP ---
Progress Note: A&P Assessment and Plan (1) Hyponatremia: Code(s): E87.1 - Hypo-osmolality and hyponatremia Status: Acute Assessment and Plan: acute decline noted in the last 24 hours etiology not clear but has multiple risk factors for it: - known COPD/lung disease make her more susceptible to this - IV medications using D5W carrier fluid - diuretic use - chronic hyponatremia at baseline during her April 2020 admission, this was felt to be due to use of HCTZ along with COPD exacerbation instituted on fluid restriction check TSH, cortisol, SPEP, UPEP, serum/urine osmolality goal of correction is 4 - 6mmol/L in a 24 hour period of time follow trend of repeat sodiums (2) Atrial fibrillation with RVR: Code(s): I48.91 - Unspecified atrial fibrillation Status: Acute Assessment and Plan: difficult to control as noted by interventions to date continue rate control strategy Cardiology following (3) Acute diastolic CHF (congestive heart failure): Code(s): I50.31 - Acute diastolic (congestive) heart failure Status: Acute Assessment and Plan: volume status better with IV diuresis diuretics on hold now due to #1 follow volume status (4) COPD (chronic obstructive pulmonary disease): Code(s): J44.9 - Chronic obstructive pulmonary disease, unspecified Status: Chronic Assessment and Plan: chronic issues continue supplemental oxygen and supportive therapy follow respiratory status (5) Essential (primary) hypertension: Code(s): I10 - Essential (primary) hypertension Status: Chronic Assessment and Plan: reasonable control at this time follow hemodynamics Discussed with nursing and the patient and family are considering hospice -- will await for their final decision regarding this as the next with regard to her sodium level is using 3% saline. Will continue to follow. Subjective Date/time seen: 01/02/21 12:39 No acute distress noted but patient is quite tired and fatigued with this hospitalization and interventions to date with regard to her resistant atrial fibrillation with RVR. Objective Data Vital Signs Vital Signs: Vital Signs Temp Pulse Resp BP Pulse Ox 01/02/21 12:00 118 H 16 140/91 H 99 01/02/21 11:35 98 01/02/21 10:00 112 H 01/02/21 09:26 108 H 18 01/02/21 08:55 107 H 18 99 01/02/21 08:11 106 H 01/02/21 08:10 106 H 01/02/21 08:00 36.4 C L 100 16 141/93 H 99 01/02/21 06:00 102 H 01/02/21 04:00 36.6 C 103 H 14 110/52 L 98 01/02/21 02:00 109 H 01/02/21 00:00 36.4 C L 110 H 18 136/91 H 96 01/01/21 22:00 111 H 01/01/21 21:24 96 01/01/21 20:38 100 18 01/01/21 20:23 83 18 97 01/01/21 20:09 83 01/01/21 20:00 35.7 C L 110 H 22 H 128/94 H 100 Intake/Output Intake/Output: Intake & Output 12/30/20 12/31/20 01/01/21 01/02/21 23:59 23:59 23:59 23:59 Intake Total 1650 930 690 660 Balance 1650 930 690 660 Meds/Results Medications: Active Medications Generic Name Dose Route Start Last Admin Trade Name Freq PRN Reason Stop Dose Admin Acetaminophen 650 mg 12/29/20 03:44 12/31/20 22:19 Acetaminophen 325 Mg Tablet PO 650 mg Q4H PRN Administration Mild Pain (1-3) or Fever Alprazolam 0.5 mg 12/27/20 21:00 01/01/21 20:09 Alprazolam (*Crx) 0.5 Mg Tablet PO 0.5 mg HS CHARLEE Administration Alprazolam 0.5 mg 12/27/20 02:03 Alprazolam (*Crx) 0.5 Mg Tablet PO ONCE PRN Anxiety Apixaban 5 mg 12/27/20 09:00 01/02/21 08:11 Apixaban 5 Mg Tablet PO 5 mg Q12HR CHARLEE Administration Budesonide 1 mg 12/27/20 20:00 01/02/21 08:55 Budesonide Respule Neb 0.5 Mg/2 Ml Amp INHALATION 1 mg Q12HRT CHARLEE Administration Diltiazem HCl 30 mg 12/31/20 16:00 01/02/21 17:15 Diltiazem Hcl 30 Mg Tablet
--- NOTE | 2021-01-02 12:39 | P.PNNP_ITS ---
Progress Note: A&P Assessment and Plan (1) Hyponatremia: Code(s): E87.1 - Hypo-osmolality and hyponatremia Status: Acute Assessment and Plan: * acute decline noted in the last 24 hours * etiology not clear but has multiple risk factors for it: - known COPD/lung disease make her more susceptible to this - IV medications using D5W carrier fluid - diuretic use - chronic hyponatremia at baseline * during her April 2020 admission, this was felt to be due to use of HCTZ along with COPD exacerbation * instituted on fluid restriction * check TSH, cortisol, SPEP, UPEP, serum/urine osmolality * goal of correction is 4 - 6mmol/L in a 24 hour period of time * follow trend of repeat sodiums (2) Atrial fibrillation with RVR: Code(s): I48.91 - Unspecified atrial fibrillation Status: Acute Assessment and Plan: * difficult to control as noted by interventions to date * continue rate control strategy * Cardiology following (3) Acute diastolic CHF (congestive heart failure): Code(s): I50.31 - Acute diastolic (congestive) heart failure Status: Acute Assessment and Plan: * volume status better with IV diuresis * diuretics on hold now due to #1 * follow volume status (4) COPD (chronic obstructive pulmonary disease): Code(s): J44.9 - Chronic obstructive pulmonary disease, unspecified Status: Chronic Assessment and Plan: * chronic issues * continue supplemental oxygen and supportive therapy * follow respiratory status (5) Essential (primary) hypertension: Code(s): I10 - Essential (primary) hypertension Status: Chronic Assessment and Plan: * reasonable control at this time * follow hemodynamics Discussed with nursing and the patient and family are considering hospice -- will await for their final decision regarding this as the next with regard to her sodium level is using 3% saline. Will continue to follow. Subjective Date/time seen: 01/02/21 12:39 No acute distress noted but patient is quite tired and fatigued with this hospitalization and interventions to date with regard to her resistant atrial fibrillation with RVR. Objective Data Vital Signs Vital Signs: Vital Signs Temp Pulse Resp BP Pulse Ox 01/02/21 12:00 118 H 16 140/91 H 99 01/02/21 11:35 98 01/02/21 10:00 112 H 01/02/21 09:26 108 H 18 01/02/21 08:55 107 H 18 99 01/02/21 08:11 106 H 01/02/21 08:10 106 H 01/02/21 08:00 36.4 C L 100 16 141/93 H 99 01/02/21 06:00 102 H 01/02/21 04:00 36.6 C 103 H 14 110/52 L 98 01/02/21 02:00 109 H 01/02/21 00:00 36.4 C L 110 H 18 136/91 H 96 01/01/21 22:00 111 H 01/01/21 21:24 96 01/01/21 20:38 100 18 01/01/21 20:23 83 18 97 01/01/21 20:09 83 01/01/21 20:00 35.7 C L 110 H 22 H 128/94 H 100 Intake/Output Intake/Output: Intake & Output 12/30/20 12/31/20 01/01/21 01/02/21 23:59 23:59 23:59 23:59 Intake Total 1650 930 690 660 Balance 1650 930 690 660 Meds/Results Medications: Active Medications Generic Name Dose Route Start Last Admin Trade Name Freq PRN Reason Stop Dose Admin
--- NOTE | 2021-01-02 13:42 | PCOTNOTE ---
RN stated to hold treatment this date due to continued change in medical status and monitoring.
--- NOTE | 2021-01-02 14:03 | PCPTNOTE ---
PT held today pending hospice consult.
--- NOTE | 2021-01-02 14:12 | PM.PNCARD ---
Progress Note: A&P Assessment and Plan (1) Atrial flutter with rapid ventricular response: Code(s): I48.92 - Unspecified atrial flutter Status: Acute Assessment and Plan: Heart rate better controlled overall. Continue anticoagulation and antiarrhythmic therapy. Hospice plans noted. Lengthy discussion had with the patient and her son and daughter at bedside. Discussed additional potential options for cardiac management including alternative antiarrhythmic, cardioversion and or at the extreme AV mitchel ablation and pacemaker. Patient is not willing to consider any of those other options at this time. In light of her severe hyponatremia, fatigue, COPD she wishes to be made comfortable and to at peace at home with her family. Decision for hospice was multifactorial given her overall medical condition. (2) Atrial fibrillation with rapid ventricular response: Code(s): I48.91 - Unspecified atrial fibrillation Status: Acute Assessment and Plan: As above. (3) NSVT (nonsustained ventricular tachycardia): Code(s): I47.2 - Ventricular tachycardia Status: Acute Assessment and Plan: Stable. No acute issues. (4) Hyponatremia: Code(s): E87.1 - Hypo-osmolality and hyponatremia Status: Acute Assessment and Plan: Severe, acute decline. Nephrology consultation appreciated. (5) Acute diastolic CHF (congestive heart failure): Code(s): I50.31 - Acute diastolic (congestive) heart failure Status: Acute Assessment and Plan: Not currently receiving diuresis, fairly euvolemic at this time. Monitor volume status closely. (6) Medication management: Code(s): Z79.899 - Other retirement (current) drug therapy Status: Acute Assessment and Plan: No further evaluation warranted given hospice plans. (7) COPD exacerbation: Code(s): J44.1 - Chronic obstructive pulmonary disease with (acute) exacerbation Status: Acute Assessment and Plan: Treatment per hospitalist. Improving. (8) Frailty: Code(s): R54 - Age-related physical debility Status: Acute Assessment and Plan: Per primary service. PT OT. Subjective Date/time seen: Date of service: 01/02/21 14:12 Interval history: Follow-up of PAF and mild acute diastolic CHF with small effusions and elevated BNP. Started on sotalol 12/27/2019 p.m. Admitted with exacerbation of COPD. Followed by Dr. Gomez for PAF, on Eliquis. Echo in April showed normal LV function. Heart rate fair control, on average 100 beats per minute. Patient complains of feeling very tired and she has decided to enter hospice. Patient's daughter and son at bedside who are in agreement. She denies chest pain. No new or acute shortness of breath, no palpitations. She has been fighting and is now at peace and letting go. Review of Systems Review of Systems: All systems reviewed & are unremarkable except as noted in HPI and below Constitutional: Constitutional: Reports as per HPI, Reports no additional constitutional complaints, Reports fatigue, Reports lethargy and Reports weakness Eyes: Eyes: Reports as per HPI ENT: Reports system reviewed and no additional complaints, except as documented, Reports as per HPI and Denies epistaxis Cardiovascular: Cardiovascular: Reports as per HPI, Reports no additional cardiovascular complaints, Denies chest pain, Denies pedal edema, Denies leg edema, Denies lightheadedness, Denies palpitations, Reports dyspnea and Reports dyspne
--- NOTE | 2021-01-02 14:36 | PCRCNOTE ---
FAMILY REFUSED NEB TX; PT. IS GOING HOSPICE. R.N. AWARE.
--- NOTE | 2021-01-02 15:38 | PM.DS ---
DS: Admitting Diagnosis Admitting Diagnosis Admitting Diagnosis: Chief Complaint: Increased shortness of breath DS: Discharge Diagnosis Discharge Diagnosis (1) Atrial fibrillation with rapid ventricular response: Code(s): I48.91 - Unspecified atrial fibrillation Status: Acute (2) Acute exacerbation of CHF (congestive heart failure): Qualifiers: Heart failure type: right-sided Qualified Code(s): I50.813 - Acute on chronic right heart failure Code(s): I50.9 - Heart failure, unspecified Status: Acute Assessment and Plan: 01/02/21 11:18 Patient is 85-year-old female presented emergency department with a complaint of shortness of breath and with history of proximal atrial fibrillation went into RVR most likely multifactorial due to congestive heart failure as patient has elevated BNP of 2500 as well as long history of smoking and emphysema and has COPD, patient was started on diltiazem drip from emergency depart and continue metoprolol, patient was seen by official court reporter patient's rate is not controlled with diltiazem and metoprolol, cardiology is recommending to start the patient on sotalol 80 mg every q12hr, patient was seen by charcoal kiln burner started the patient Pulmicort, ipratropium 0.5mg q.6, prednisone 20 mg q.day for 5, doxycycline 100 mg b.i.d. for 7, sputum culture and test for COVID-19, will continue to monitor the patient, spoke with the patient's daughter and answered all her questions, will have a PT OT evaluate the patient and further recommendation to follow. 12/28 patient is currently in isolation COVID is pending, patient states was able to sleep much better last night, patient on treated with sotalol 80 mg b.i.d. patient denies any chest pain or palpitation, patient's heart rate is controlled, patient does complain once she has coughing fit she becomes short of breath, patient seen by pulmonology being treated with pulmicort, prednisone, ipratropium and doxycycline, will continue to monitor. 12/29Patient COVID test is negative, and still complains of dry cough but denies shortness of breath, patient is treated with prednisone, doxycycline, Pulmicort, ipratropium and doxycycline patient seen by charcoal kiln burner further recommendation to follow, denies chest pain palpitation fever or chills, patient with atrial fibrillation with RVR being treated with sotalol heart rate remains high patient will be seen by official court reporter and further recommendation to follow. 12/30, on 12/29 patient heart rate remained in 120s patient was seen by Cardiology and give x-ray does sotalol 80 mg x1, therefore patient is seen 3 does an 18 hour, patient remains clinically stable, will closely monitor electrolyte potassium and magnesium, patient denies any chest pain shortness of breath palpitation fever or chills, however see does complaint persistent dry cough, patient is seen by pulmonology recommended to continue present management, will continue to monitor the patient patient feels weak and tired not ready start rehab will continue to monitor, spoke with the patient's daughter and updated. 12/31 patient was seen by Cardiology had increased sotalol to 120 mg b.i.d. from 80 mg b.i.d. however patient remains atrial fibrillation with RVR and flutter today official court reporter had a long discussion with the patient and her daughter recommended cardioversion and discussed all the risks involved, patient daughter has agreed with cardioversion which is scheduled for tomorrow will follow-up further recommendation to follow, patient breathing is somewhat better will continue to monitor. 01/01 patient with atrial fibrillation with RVR being treated with sotalol 120 mg b.i.d. and the rate was not improving and plan was cardioverted today however today patient has hyponatremia etiology uncertain, nephrology is consulted and place the patient on free fluid restriction, patient complains of being more tired and fatigue, denies any chest palpitation fever or chills, will
[2021-01-05 12:53] LABS: Kappa\\Lambda Light Chains 0.65 (0.26-1.65)
[2021-01-06 22:09] LABS: Albumin 3.3 g/dL (3.8-4.8); Alpha 1 Globulin 0.3 g/dL (0.2-0.3); Alpha 2 Globulin 0.9 g/dL (0.5-0.9); Beta 1 Globulin 0.5 g/dL (0.4-0.6); Gamma Globulin 0.8 g/dL (0.8-1.7); Protein, Total 6.2 g/dL (6.1-8.1)
== END 2021-01-02 18:55 | disposition hospice, home (50) | DRG 291 ==
LOC: ANHED 21:05 → ANHIMU 21:17
PROVIDERS: Family Medicine; Internal Medicine Cardiovascular Disease; Internal Medicine Critical Care Medicine; Internal Medicine Nephrology; Admitting Provider Internal Medicine; Emergency Provider Emergency Medicine; PCP Family Medicine; Visit Provider Internal Medicine Cardiovascular Disease
DX: I11.0 Hypertensive heart disease with heart failure (principal); J96.21 Acute and chronic respiratory failure with hypoxia; I47.2 Ventricular tachycardia; I48.20 Chronic atrial fibrillation, unspecified; I48.92 Unspecified atrial flutter; E87.1 Hypo-osmolality and hyponatremia; I50.33 Acute on chronic diastolic (congestive) heart failure; J43.9 Emphysema, unspecified; Z20.822 Contact with and (suspected) exposure to COVID-19; R54 Age-related physical debility; E03.9 Hypothyroidism, unspecified; M81.0 Age-related osteoporosis without current pathological fracture; E78.2 Mixed hyperlipidemia; Z99.81 Dependence on supplemental oxygen; Z98.42 Cataract extraction status, left eye; Z98.41 Cataract extraction status, right eye; Z90.721 Acquired absence of ovaries, unilateral; Z87.891 Personal history of nicotine dependence
CPT/HCPCS: 36415; 71045; 80048; 80069; 83605; 83735; 83880; 83883; 83930; 84155; 84165; 84295; 84443; 84484; 85025; 85027; 85610; 85730; 87040; 87070; 87205; 93005; 94640; 96365; 96366; 96375; 97110; 97161; 97165; 97530; 97535; 99285; A9270; C9803; G0378; J0696; J1940; J3475; J7040; J7512; U0003; U0005